=== PATIENT | female | born 1950 | race Caucasian/White ===

== ENCOUNTER 2017-02-23 10:54 | Emergency (ER) | payer MEDICARE ==
[~2017-02-23] VITALS: Ht 170.2 cm; Wt 128.8 kg
[~2017-02-23 10:54] MED LIST: ACET-819 PO; AGM875T PO; ALBU8.5H2 IH; ASP81CT PO; ATOR10TA PO; ATOR10TA66 PO; ATRV10T; BECL8.7A6 IH; CEPH500T PO; CETI10TA17 PO; CPR500T PO; CYCL10TA9; DICY20TA10 PO; DICY20TA57 PO; DOCU100T7 PO; FISH1CAP15 PO; FLUT1DIS26 IH; FRSM40T PO; FURO40TA4 PO; HYDR-34; HYDR-34 PO; HYDR-3583 PO; HYDR-3812 PO; HYDR-707; HYDR1TAB66 PO; KCL10CCR PO; KCL20TCR PO; LEVO100T PO; LEVO75TA58 PO; LEVO75TA6 PO; LISI5TAB PO; LVT.05T; METO25TA2 PO; MONT10TA24 PO; NAPR-243 PO; NAPR500T3 PO; NFPRILOC40 PO; NITRO SL; NTR.4SL SL; OMEP20CA6; OMEP40CA36 PO; OMG1KC; OMG1KC PO; ORPH100T PO; OXYC-12 PO; PHEN-639 PO; PHEN200T27 PO; PNT40TEC PO; POTA10CA43 PO; SCR1T1 PO; SODI0.5GEL TOP; SUCR1ORA PO; SULF1TAB38 PO; TRAM-21 PO; TRAM50TA2; TRAZ100T92 PO; TRM50T PO; TRZ100T PO; WARF-48 PO; WRF2.5T PO; WRF5T PO; ZLP10T; ZLP5T PO
--- NOTE | 2017-02-23 11:16 | ED GU-Female ---
General Chief Complaint: -Female Stated Complaint: BLOOD IN URINE/PAINFUL URINATION Nursing Triage Note: Patient reports urinary frequency and incontinence, patient reports she thinks she has a uti Nursing Sepsis Screen: No Definite Risk Source: patient History of Present Illness Time seen by provider: 11:06 Initial Comments PT STATES SHE HAS A UTI--SYMPTOMS BEGAN YESTERDAY C/O BURNING ON URINATION, CONSTANT URGENCY, FREQUENCY, SMALL AMOUNTS AND CONSTANT DRIBBLING URINE WAS PINK TINGED TODAY C/O ACHING IN MID LOWER BACK NO FEVER NO NAUSEA/VOMITING HAS HISTORY OF UTI'S AND HAS HAD SEPSIS WITH THE LAST ONE A YEAR AGO, AND WAS HOSPITALIZED PCP: DR. Gricelda AMOS Allergies and Home Medications Allergies Coded Allergies: No Known Drug Allergies (Verified , 02/04/16) Home Medications Aspirin 81 Mg Tablet, 81 MG PO DAILY, (Reported) Atorvastatin Calcium 10 Mg Tablet, 10 MG PO HS, (Reported) Cetirizine HCl 10 Mg Tablet, 10 MG PO DAILY, (Reported) Dicyclomine HCl 20 Mg Tablet, 20 MG PO BID, (Reported) Fish Oil/Dha/Epa 1 Each Capsule, 1,200 MG PO DAILY, (Reported) Furosemide 40 Mg Tablet, 40 MG PO EVERY OTHER DAY, (Reported) Levothyroxine Sodium 100 Mcg Tablet, 100 MCG PO DAILY@1100, #30 Ref 3 Prescribed by: ANISH BANEGAS on 02/21/16 0920 Metoprolol Tartrate 25 Mg Tablet, 12.5 MG PO BID, (Reported) TAKE 1/2 OF 25MG TAB Montelukast Sodium 10 Mg Tablet, 10 MG PO DAILY, (Reported) Naproxen 500 Mg Tablet, 500 MG PO BID, (Reported) Nitroglycerin 0.4 Mg Subl, 0.4 MG SL PRN, (Reported) Omeprazole 40 Mg Capsule.dr, 40 MG PO DAILY, (Reported) Phenazopyridine HCl 200 Mg Tablet, 1 TAB PO TID, #15 Prescribed by: LG DOHERTY on 02/23/17 1144 Potassium Chloride 10 Meq Capsule.er, 10 MEQ PO EVERY OTHER DAY, (Reported) Sucralfate 1 Gm/10 Ml Oral.susp, 1 GM PO QID for 30 Days Prescribed by: ANISH BANEGAS on 02/21/16 0920 Sulfamethoxazole/Trimethoprim 1 Each Tablet, 1 EACH PO BID, #20 Prescribed by: LG DOHERTY on 02/23/17 1144 Trazodone HCl 100 Mg Tablet, 100 MG PO HS, (Reported) Constitutional: no symptoms reported Respiratory: no symptoms reported Cardiovascular: no symptoms reported Gastrointestinal: abdominal pain (PRESSURE OVER BLADDER), No nausea, No vomiting Genitourinary: see HPI, burning, dysuria, frequency, hematuria, incontinence, pain, urgency : No Musculoskeletal: see HPI, back pain Skin: no symptoms reported Psychiatric/Neurological: No Symptoms Reported Endocrine: No Symptoms Reported Hematologic/Lymphatic: No Symptoms Reported Past Vwsaykg-Ivpwko-Pebdbj Hx Patient Social History Alcohol Use: Rarely Uses Recreational Drug Use: No Smoking Status: Former Smoker Former Smoker/When Quit: Oct 02, 2006 Recent Foreign Travel: No Contact w/Someone Who Travel: No Recent Infectious Disease Expo: No Recent Hopitalizations: No Immunizations Up To Date Tetanus Booster (TDap): Less than 5yrs Date of Pneumonia Vaccine: Sep 01, 2012 Date of Influenza Vaccine: Sep 01, 2012 Surgeries HX Surgeries: Yes (HIATAL HERNIA, LEFT TKR, SINGLE BYPASS; CATARACTS) Surgeries: Abdominal, Adenoidectomy, Appendectomy, CABG, Eye Surgery, Gallbladder, Hysterectomy, Joint Replacement, Tonsillectomy Respiratory Hx Respiratory Disorders: Yes (CPAP, pulmonary hypertension) Respiratory Disorders: Asthma, Sleep Apnea, COPD Cardiovascular Hx Cardiac Disorders: Yes (HX BY-PASS X1 2006) Cardiac Disorders: Coronary Artery Disease, High Cholesterol, Hypertension, Valvular Heart Disease Neurological Hx Neurological Disorders: No Reproductive System Hx Reproductive Disorders: No Sexually Transmitted Disease: No HIV/AIDS: No 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 Genitourinary Hx Genitourinary Disorders: Yes Genitourinary Disorders: Kidney Infection, Bladder Infection Gastrointestinal Hx Gastrointestinal Disorders: Yes Gastrointestinal Disorders: Gastroesophageal Reflux Musculoskeletal Hx Musculoskeletal Disorders: Yes Musculoskeletal Disorders: Arthritis Endocrine Hx Endocrine Disorders: Yes Endocrine Disorders: Hypothyroidsim HEENT HX ENT Disorders: Yes (GLASSES, CATARACTS) HEENT Disorders: Cataract Loss of Vision: Denies Cancer Hx Cancer: Yes (hysterectomy in 1989) Cancer: Cervical Psychosocial Hx Psychiatric Problems: No Integumentary HX Skin/Integumentary Disorder: No Blood Transfusions Hx Blood Disorders: Yes (hx of blood clots in 1989 pelvic area & left calf ) Family Medical History Significant Family History: No Pertinent Family Hx Family Medial History: Alzheimer's disease 19 MOTHER, , Onset:Unknown G8 BROTHER, , Onset:Unknown Diabetes mellitus G8 BROTHER, Onset:Unknown FH: CHF (congestive heart failure) 19 MOTHER, , Onset:Unknown FH: brain aneurysm 19 FATHER, , Onset:Unknown FH: brain aneurysm 19 FATHER, , Onset:Unknown Hypertension 19 FATHER, , Onset:Unknown 19 MOTHER, , Onset:Unknown G8 BROTHER, Onset:Unknown Myocardial infarction 19 FATHER, , Onset:Unknown 19 MOTHER, , Onset:Unknown Prostate cancer G8 BROTHER, Onset:Unknown TIAs 19 MOTHER, , Onset:Unknown Physical Exam Vital Signs Vital Sign - Last 12Hours 02/23/17 11:07 Temp 97.7 Pulse 69 Resp 18 B/P (MAP) 150/64 Pulse Ox 95 O2 Delivery Room Air Capillary Refill : Less Than 3 Seconds General Appearance: WD/WN, no apparent distress Neck: normal inspection Cardiovascular: regular rate, rhythm, no murmur Respiratory: normal breath sounds, no respiratory distress, no accessory muscle use Gastrointestinal: normal bowel sounds, soft, no organomegaly, no pulsatile mass , No distended, No guarding, No rebound, tenderness ("PRESSURE" IN SUPRAPUBIC AREA), No hernia, No mass Back: no CVA tenderness Extremities: normal inspection, normal capillary refill Neurologic/Psychiatric: 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 nml as tested, no motor/sensory deficits, alert, normal mood/affect, oriented x 3 Skin: normal color, warm/dry Progress/Results/Core Measures Results/Orders Lab Results Laboratory Tests Test 02/23/17 11:05 Range/Units Urine Color YELLOW Urine Clarity VERY CLOUDY H Urine pH 5 5-9 Urine Specific [place] 1.015 L 1.016-1.022 Urine Protein 2+ H NEGATIVE Urine Glucose (UA) NEGATIVE NEGATIVE Urine Ketones NEGATIVE NEGATIVE Urine Nitrite NEGATIVE NEGATIVE Urine Bilirubin NEGATIVE NEGATIVE Urine Urobilinogen NORMAL NORMAL MG/DL Urine Leukocyte Esterase 3+ H NEGATIVE Urine RBC (Auto) 5+ H NEGATIVE Urine RBC 25-50 H /HPF Urine WBC >100 H /HPF Urine Squamous Epithelial Cells 5-10 /HPF Urine Crystals NONE /LPF Urine Bacteria TRACE /HPF Urine Casts NONE /LPF Urine Mucus NEGATIVE /LPF Urine Culture Indicated YES My Orders Orders - LG DOHERTY DO Ua Culture If Indicated (02/23/17 11:10) Urine Culture (02/23/17 11:05) Ceftriaxone Injection (Rocephin Injectio (02/23/17 11:45) Lidocaine 1% Injection (Xylocaine 1% Inj (02/23/17 11:45) Medications Given in ED Current Medications Medications Dose Ordered Sig/Sukhi Route Start Time Stop Time Status Last Admin Dose Admin Ceftriaxone Sodium 1,000 mg ONCE ONCE IM 02/23/17 11:45 02/23/17 11:46 DC 02/23/17 11:55 1,000 MG Lidocaine HCl 2.1 ml ONCE ONCE INJ 02/23/17 11:45 02/23/17 11:46 DC 02/23/17 11:55 2.1 ML Vital Signs/I&O Vital Sign - Last 12Hours 02/23/17 02/23/17 11:07 12:07 Temp 97.7 97.7 Pulse 69 69 Resp 18 18 B/P (MAP) 150/64 Pulse Ox 95 95 O2 Delivery Room Air Blood Pressure Mean: 92 Departure Impression Impression: Primary Impression: Urinary tract infection Disposition: 01 HOME, SELF-CARE Condition: Stable Departure-Patient Inst. Referrals: AARON AMOS MD (PCP/Family) Primary Care Physician Patient Instructions: Urinary Tract Infection, Adult (DC) Add. Discharge Instructions: LOTS OF CLEAR LIQUIDS--NO COFFEE, POP OR TEA TYLENOL AND MOTRIN NEEDED FOR PAIN OR FEVER FOLLOW UP WITH YOUR DR IN 2-3 DAYS IF NO BETTER All discharge instructions reviewed with patient and/or family. Voiced understanding. Scripts Phenazopyridine HCl (Pyridium) 200 Mg Tablet 1 TAB PO TID for BLADDER DISCOMFORT, #15 TAB Prov: LG DOHERTY DO 02/23/17 Sulfamethoxazole/Trimethoprim (Bactrim Ds Tablet) 1 Each Tablet 1 EACH PO BID, #20 TAB Prov: MIRTA DOHERTYA K DO 02/23/17 MIRTA DOHERTYA K DO Feb 23, 2017 11:16
[2017-02-23 11:22] LABS: BILIRUBIN,URINE NEGATIVE (NEGATIVE); KETONES,URINE NEGATIVE (NEGATIVE); LEUKOCYTE ESTERASE ,URINE 3+ (NEGATIVE); NITRITE,URINE NEGATIVE (NEGATIVE); PH,URINE 5 (5-9); PROTEIN,URINE 2+ (NEGATIVE); UROBILINOGEN,URINE NORMAL (NORMAL)
[2017-02-23 11:31] LABS: WBC,URINE >100 /HPF
[2017-02-23] MEDS ORDERED: PHEN-640 PO (11:44)
[2017-02-23] MEDS ORDERED: SULF1TAB35 PO (11:44)
[2017-02-23] MEDS ORDERED: LIDOCAINE 1% INJ 20 ML (XYLOCAINE) VIAL INJ ONE (11:45)
[2017-02-23] MEDS ORDERED: cefTRIAXone 1 GM (ROCEPHIN) VIAL IM ONE (11:45)
[2017-02-23 12:07] VITALS: BP 150/64
== END 2017-02-23 12:07 | disposition home or self-care (01) ==
LOC: EDUNIT# 10:54 → ER 10:55
DX: N30.91 Cystitis, unspecified with hematuria (principal); I10 Essential (primary) hypertension; I25.10 Atherosclerotic heart disease of native coronary artery without angina pectoris; J44.9 Chronic obstructive pulmonary disease, unspecified; Z79.82 Long term (current) use of aspirin; Z79.899 Other long term (current) drug therapy; Z87.442 Personal history of urinary calculi; Z87.891 Personal history of nicotine dependence; Z95.1 Presence of aortocoronary bypass graft
CPT/HCPCS: 81000; 87088; 96372; 99285

== ENCOUNTER 2017-06-08 15:07 | Emergency (ER) | payer MEDICARE, MEDICAID ==
[~2017-06-08] VITALS: Ht 170.2 cm; Wt 126.1 kg
[~2017-06-08 15:07] MED LIST changes: -NAPR500T3 PO; +NAPR500T4 PO; +PHEN-640 PO; +SULF1TAB35 PO
[2017-06-08 15:41] LABS: BILIRUBIN,URINE NEGATIVE (NEGATIVE); KETONES,URINE NEGATIVE (NEGATIVE); LEUKOCYTE ESTERASE ,URINE 3+ (NEGATIVE); NITRITE,URINE NEGATIVE (NEGATIVE); PH,URINE 5 (5-9); PROTEIN,URINE 2+ (NEGATIVE); UROBILINOGEN,URINE NORMAL (NORMAL)
[2017-06-08 15:58] LABS: WBC,URINE TNTC /HPF
[2017-06-08] MEDS ORDERED: MECLIZINE 25 MG (ANTIVERT) TAB PO STA (16:01)
[2017-06-08] MEDS ORDERED: NS IV 1000 ML 1,000 ML IV ONE (16:01)
[2017-06-08] MEDS ORDERED: ONDANSETRON 4 MG/2 ML (SDV) Z0FRAN IVP ONE (16:15)
--- NOTE | 2017-06-08 16:19 | ED General ---
General Chief Complaint: -Female Stated Complaint: DIZZINESS/NAUSEA/ARMS TINGLING/PAINFUL URINATION Nursing Triage Note: c/o dysuria and dizziness. Reports hand itching. Onnset this morning. aware of HR of 48. Nursing Sepsis Screen: No Definite Risk Source of Information: Patient, Family (daughter) Exam Limitations: No Limitations History of Present Illness Time Seen by Provider: 15:50 Initial Comments 66-year-old female patient presents to the emergency department complaints of dysuria, frequency, and vertigo/dizziness. Patient states this is similar to when she had sepsis 1.5 years ago. Patient also c/o itching of the bilateral hands. States she has been out in the heat and does not drink much fluids. Reports yesterday only having approx 20 oz of fluids. Timing/Duration: Other (onset this a.m.) Modifying Factors: worse with Other (vertigo and dizziness worse with standing from a lying or sitting position) Allergies and Home Medications Allergies Coded Allergies: No Known Drug Allergies (Verified , 02/04/16) Home Medications Aspirin 81 Mg Tablet, 81 MG PO DAILY, (Reported) Atorvastatin Calcium 10 Mg Tablet, 10 MG PO HS, (Reported) Cephalexin 500 Mg Capsule, 500 MG PO TID, #30 Ref 0 Prescribed by: NATALIE SIERRA on 06/08/17 1714 Cetirizine HCl 10 Mg Tablet, 10 MG PO DAILY, (Reported) Dicyclomine HCl 20 Mg Tablet, 20 MG PO BID, (Reported) Fish Oil/Dha/Epa 1 Each Capsule, 1,200 MG PO DAILY, (Reported) Furosemide 40 Mg Tablet, 40 MG PO EVERY OTHER DAY, (Reported) Levothyroxine Sodium 100 Mcg Tablet, 100 MCG PO DAILY@1100, #30 Ref 3 Prescribed by: ANISH BANEGAS on 02/21/16 0920 Meclizine HCl 25 Mg Tablet, 25 MG PO Q6H PRN for VERTIGO, #10 Ref 0 Prescribed by: NATALIE SIERRA on 06/08/17 1800 Metoprolol Tartrate 25 Mg Tablet, 12.5 MG PO BID, (Reported) TAKE 1/2 OF 25MG TAB Montelukast Sodium 10 Mg Tablet, 10 MG PO DAILY, (Reported) Naproxen 500 Mg Tablet, 500 MG PO BID, (Reported) Nitroglycerin 0.4 Mg Subl, 0.4 MG SL PRN, (Reported) Omeprazole 40 Mg Capsule.dr, 40 MG PO DAILY, (Reported) Ondansetron 8 Mg Tab.rapdis, 8 MG PO Q6H PRN for NAUSEA/VOMITING-1ST LINE, #10 Ref 0 Prescribed by: NATALIE SIERRA on 06/08/17 1800 Phenazopyridine HCl 200 Mg Tablet, 1 TAB PO TID, #15 Prescribed by: LG DOHERTY on 02/23/17 1144 Potassium Chloride 10 Meq Capsule.er, 10 MEQ PO EVERY OTHER DAY, (Reported) Sucralfate 1 Gm/10 Ml Oral.susp, 1 GM PO QID for 30 Days Prescribed by: ANISH BANEGAS on 02/21/16 0920 Sulfamethoxazole/Trimethoprim 1 Each Tablet, 1 EACH PO BID, #20 Prescribed by: LG DOHERTY on 02/23/17 1144 Trazodone HCl 100 Mg Tablet, 100 MG PO HS, (Reported) Constitutional: see HPI, No chills, No diaphoresis, dizziness, No fever, No malaise, No weakness EENTM: no symptoms reported Respiratory: No cough, No dyspnea on exertion, No orthopnea, No short of breath Cardiovascular: No chest pain, No palpitations, No syncope Gastrointestinal: No abdominal pain, No constipation, No diarrhea, No jaundice , nausea, No vomiting Genitourinary: see HPI, No decreased output, No discharge, dysuria, frequency, No hematuria, No incontinence Musculoskeletal: no symptoms reported Skin: see HPI, No change in color, No lesions, No lumps, pruritus (pruritus of the bilateral hands), No rash Psychiatric/Neurological: Denies Headache, Denies Numbness, Denies Paresthesia , Denies Seizure, Denies Tingling, Denies Weakness (denies one-sided weakness) All Other Systems Reviewed Negative Unless Noted: Yes (Negative excepted noted.) Past Ltoakdo-Znikzz-Wyeofg Hx Patient Social History Alcohol Use: Denies Use Recreational Drug Use: No (2006 METH, POT) Smoking Status: Never a Smoker Former Smoker/When Quit: Oct 02, 2006 Recent Foreign Travel: No Contact w/Someone Who Travel: No Recent Infectious Disease Expo: No Recent Hopitalizations: No Immunizations Up To Date Tetanus Booster (TDap): Less than 5yrs Date of Pneumonia Vaccine: Sep 01, 2012 Date of Influenza Vaccine: Sep 01, 2012 Surgeries HX Surgeries: Yes (HIATAL HERNIA, LEFT TKR, SINGLE BYPASS; CATARACTS) Surgeries: Abdominal, Adenoidectomy, Appendectomy, CABG, Eye Surgery, Gallbladder, Hysterectomy, Joint Replacement, Tonsillectomy Respiratory Hx Respiratory Disorders: Yes (CPAP, pulmonary hypertension) Respiratory Disorders: Asthma, Sleep Apnea, COPD Cardiovascular Hx Cardiac Disorders: Yes (HX BY-PASS X1 2006) Cardiac Disorders: Coronary Artery Disease, High Cholesterol, Hypertension, Valvular Heart Disease Neurological Hx Neurological Disorders: No Reproductive System Hx Reproductive Disorders: No Sexually Transmitted Disease: No HIV/AIDS: No 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 Genitourinary Hx Genitourinary Disorders: Yes Genitourinary Disorders: Kidney Infection, Bladder Infection Gastrointestinal Hx Gastrointestinal Disorders: Yes Gastrointestinal Disorders: Gastroesophageal Reflux Musculoskeletal Hx Musculoskeletal Disorders: Yes Musculoskeletal Disorders: Arthritis Endocrine Hx Endocrine Disorders: Yes Endocrine Disorders: Hypothyroidsim HEENT HX ENT Disorders: Yes (GLASSES, CATARACTS) HEENT Disorders: Cataract Loss of Vision: Denies Cancer Hx Cancer: Yes (hysterectomy in 1989) Cancer: Cervical Psychosocial Hx Psychiatric Problems: No Integumentary HX Skin/Integumentary Disorder: No Blood Transfusions Hx Blood Disorders: Yes (hx of blood clots in 1989 pelvic area & left calf ) Reviewed Nursing Assessment Reviewed/Agree w Nursing PMH: Yes Family Medical History Significant Family History: No Pertinent Family Hx Family Medial History: Alzheimer's disease 19 MOTHER, , Onset:Unknown G8 BROTHER, , Onset:Unknown Diabetes mellitus G8 BROTHER, Onset:Unknown FH: CHF (congestive heart failure) 19 MOTHER, , Onset:Unknown FH: brain aneurysm 19 FATHER, , Onset:Unknown FH: brain aneurysm 19 FATHER, , Onset:Unknown Hypertension 19 FATHER, , Onset:Unknown 19 MOTHER, , Onset:Unknown G8 BROTHER, Onset:Unknown Myocardial infarction 19 FATHER, , Onset:Unknown 19 MOTHER, , Onset:Unknown Prostate cancer G8 BROTHER, Onset:Unknown TIAs 19 MOTHER, , Onset:Unknown Physical Exam Vital Signs Vital Sign - Last 12Hours 06/08/17 06/08/17 15:49 18:02 Temp 97.5 Pulse 70 Resp 16 Pulse Ox 98 O2 Delivery Room Air Capillary Refill : Less Than 3 Seconds General Appearance: No Apparent Distress, WD/WN HEENT: PERRL/EOMI, TMs Normal, Normal ENT Inspection, Pharynx Normal, Other ( oral mucosa dry.) Neck: Normal Inspection, Supple Respiratory: Lungs Clear, Normal Breath Sounds, No Respiratory Distress Cardiovascular: No Edema, No Murmur, Normal Peripheral Pulses, Bradycardia Gastrointestinal: Normal Bowel Sounds, No Organomegaly, Non Tender, Soft Back: Normal Inspection, No CVA Tenderness Extremity: Normal Capillary Refill, Normal Inspection, Non Tender, No Pedal Edema Neurologic/Psychiatric: Alert, Oriented x3, No Motor/Sensory Deficits, Normal Mood/Affect, hub associate II-XII Norm as Tested Skin: Normal Color, Warm/Dry, No Rash, Other (linear scabs of the bilateral feet (patient states these are scratches from her puppy).) Progress/Results/Core Measures Results/Orders Lab Results Laboratory Tests Test 06/08/17 15:35 06/08/17 16:30 Range/Units Urine Color YELLOW Urine Clarity VERY CLOUDY H Urine pH 5 5-9 Urine Specific [place] 1.025 H 1.016-1.022 Urine Protein 2+ H NEGATIVE Urine Glucose (UA) NEGATIVE NEGATIVE Urine Ketones NEGATIVE NEGATIVE Urine Nitrite NEGATIVE NEGATIVE Urine Bilirubin NEGATIVE NEGATIVE Urine Urobilinogen NORMAL NORMAL MG/DL Urine Leukocyte Esterase 3+ H NEGATIVE Urine RBC (Auto) 5+ H NEGATIVE Urine RBC >100 H /HPF Urine WBC TNTC H /HPF Urine Crystals NONE /LPF Urine Bacteria TRACE /HPF Urine Casts NONE /LPF Urine Mucus NEGATIVE /LPF Urine Culture Indicated YES White Blood Count 4.8 4.3-11.0 10^3/uL Red Blood Count 4.13 L 4.35-5.85 10^6/uL Hemoglobin 12.5 11.5-16.0 G/DL Hematocrit 38 35-52 % Mean Corpuscular Volume 93 80-99 FL Mean Corpuscular Hemoglobin 30 25-34 PG Mean Corpuscular Hemoglobin Concent 33 32-36 G/DL Red Cell Distribution Width 14.3 10.0-14.5 % Platelet Count 179 130-400 10^3/uL Mean Platelet Volume 10.6 H 7.4-10.4 FL Neutrophils (%) (Auto) 66 42-75 % Lymphocytes (%) (Auto) 25 12-44 % Monocytes (%) (Auto) 8 0-12 % Eosinophils (%) (Auto) 1 0-10 % Basophils (%) (Auto) 0 0-10 % Neutrophils # (Auto) 3.1 1.8-7.8 X 10^3 Lymphocytes # (Auto) 1.2 1.0-4.0 X 10^3 Monocytes # (Auto) 0.4 0.0-1.0 X 10^3 Eosinophils # (Auto) 0.1 0.0-0.3 10^3/uL Basophils # (Auto) 0.0 0.0-0.1 10^3/uL Sodium Level 139 135-145 MMOL/L Potassium Level 4.4 3.6-5.0 MMOL/L Chloride Level 105 98-107 MMOL/L Carbon Dioxide Level 26 21-32 MMOL/L Anion Gap 8 5-14 MMOL/L Blood Urea Nitrogen 19 H 7-18 MG/DL Creatinine 1.14 0.60-1.30 MG/DL Estimat Glomerular Filtration Rate 48 BUN/Creatinine Ratio 17 Glucose Level 107 H 70-105 MG/DL Calcium Level 8.6 8.5-10.1 MG/DL Total Bilirubin 0.7 0.1-1.0 MG/DL Aspartate Amino Transf (AST/SGOT) 17 5-34 U/L Alanine Aminotransferase (ALT/SGPT) 15 0-55 U/L Alkaline Phosphatase 91 40-136 U/L Total Protein 7.1 6.4-8.2 GM/DL Albumin 3.8 3.2-4.5 GM/DL Lipase 21 8-78 U/L My Orders Orders - NATALIE SIERRA Saline Lock/Iv-Start (06/08/17 16:01) Ekg Tracing (06/08/17 16:01) Cbc With Automated Diff (06/08/17 16:01) Comprehensive Metabolic Panel (06/08/17 16:01) Lipase (06/08/17 16:01) Ns Iv 1000 Ml (Sodium Chloride 0.9%) (06/08/17 16:01) Meclizine Tablet (Antivert Tablet) (06/08/17 16:01) Ondansetron Injection (Zofran Injectio (06/08/17 16:15) Chest 1 View, Ap/Pa Only (06/08/17 16:01) Ceftriaxone Injection (Rocephin Injectio (06/08/17 16:45) Medications Given in ED Current Medications Medications Dose Ordered Sig/Sukhi Route Start Time Stop Time Status Last Admin Dose Admin Ceftriaxone Sodium 1000 mg/ Sodium Chloride 50 ml @ 100 mls/hr ONCE ONCE IV 06/08/17 16:45 06/08/17 17:14 DC 06/08/17 16:45 100 MLS/HR Ondansetron HCl 4 mg ONCE ONCE IVP 06/08/17 16:15 06/08/17 16:16 DC 06/08/17 16:41 4 MG Sodium Chloride 1,000 ml @ 0 mls/hr Q0M ONCE IV 06/08/17 16:01 06/08/17 16:03 DC 06/08/17 16:41 1,000 MLS/HR Vital Signs/I&O Vital Sign - Last 12Hours 06/08/17 06/08/17 15:49 18:02 Temp 97.5 Pulse 70 50 Resp 16 B/P (MAP) Pulse Ox 98 99 O2 Delivery Room Air ECG Initial ECG Impression Date: Jun 08, 2017 Initial ECG Impression Time: 16:41 Initial ECG Rate: 47 Initial ECG Rhythm: S.Ten Initial ECG Comparisson: No Previous ECG Available Comment Sinus bradycardia. No STEMI or arrhythmia noted. ECG reviewed and discussed with Dr. Deng. Diagnostic Imaging Diagonstic Imaging: Xray Plain Films/CT/US/NM/MRI: chest Comments FINDINGS: The heart is prominent. The pulmonary vasculature is minimally congested. There are increased interstitial markings throughout both lungs, predominantly in the lower lungs, likely due to atelectasis. No effusions. No infiltrates. No pneumothorax. Sternotomy wires and mediastinal clips appear stable from previous. IMPRESSION: Pulmonary vascular congestion with mild bibasilar atelectasis. Remaining chest demonstrates chronic change. Dictated on workstation # [id number] Reviewed: Reviewed by Me (radiology report reviewed by me) Departure Communication Progress Notes All laboratory and diagnostic findings discussed with the patient. Patient reports symptoms are completely resolved. Patient given 1 g of rocephin IV x1 dose in the ED. Plan for discharge to home. Impression Impression: Primary Impression: Urinary tract infection Qualified Codes: N30.01 - Acute cystitis with hematuria Additional Impression: Volume depletion Disposition: HOME, SELF-CARE Condition: Improved Departure-Patient Inst. Decision time for Depature: 17:11 Referrals: AARON AMOS MD (PCP/Family) Primary Care Physician Patient Instructions: Dehydration, Adult (DC), Urinary Tract Infection, Adult ( DC) Add. Discharge Instructions: All discharge instructions reviewed with patient and/or family. Voiced understanding. Medications as directed. Continue as directed. Drink plenty of fluids. Follow-up with your family practitioner for recheck early this week. Call for appointment time tomorrow morning. Return to the emergency department for worsened symptoms or any other concerns. Scripts Ondansetron (Ondansetron Odt) 8 Mg Tab.rapdis 8 MG PO Q6H Y for NAUSEA/VOMITING-1ST LINE, #10 TAB 0 Refills Prov: NATALIE SIERRA 06/08/17 Meclizine HCl (Meclizine HCl) 25 Mg Tablet 25 MG PO Q6H Y for VERTIGO, #10 TAB 0 Refills Prov: NATALIE SIERRA 06/08/17 Cephalexin (Cephalexin) 500 Mg Capsule 500 MG PO TID, #30 CAP 0 Refills Prov: NATALIE SIERRA 06/08/17 NATALIE SIERRA Jun 08, 2017 16:19
[2017-06-08 16:38] LABS: BASOPHILS % (AUTO) 0 % (0-10); EOSINOPHILS # (AUTO) 0.1 10^3/uL (0.0-0.3); EOSINOPHILS % (AUTO) 1 % (0-10); LYMPHOCYTES # (AUTO) 1.2 X 10^3 (1.0-4.0); LYMPHOCYTES % (AUTO) 25 % (12-44); MEAN CORPUSCULAR HEMOGLOBIN 30 PG (25-34); MEAN CORPUSCULAR HGB CONC 33 G/DL (32-36); MEAN CORPUSCULAR VOLUME 93 FL (80-99); MEAN PLATELET VOLUME 10.6 FL (7.4-10.4); MONOCYTES # (AUTO) 0.4 X 10^3 (0.0-1.0); MONOCYTES % (AUTO) 8 % (0-12); NEUTROPHILS # (AUTO) 3.1 X 10^3 (1.8-7.8); NEUTROPHILS % (AUTO) 66 % (42-75); PLATELET COUNT 179 10^3/uL (130-400); RED BLOOD COUNT 4.13 10^6/uL (4.35-5.85); RED CELL DISTRIBUTION WIDTH 14.3 % (10.0-14.5); WHITE BLOOD COUNT 4.8 10^3/uL (4.3-11.0)
[2017-06-08] MEDS ORDERED: cefTRIAXone INJECTION 1,000 MG in NS (IVPB) 50 ML IV ONE (16:45)
--- NOTE | 2017-06-08 16:47 | Diagnostic Imaging Report ---
INDICATION: Dysuria, dizziness. EXAMINATION: Frontal chest, 06/08/2017. COMPARISON: 02/19/2016. FINDINGS: The heart is prominent. The pulmonary vasculature is minimally congested. There are increased interstitial markings throughout both lungs, predominantly in the lower lungs, likely due to atelectasis. No effusions. No infiltrates. No pneumothorax. Sternotomy wires and mediastinal clips appear stable from previous. IMPRESSION: Pulmonary vascular congestion with mild bibasilar atelectasis. Remaining chest demonstrates chronic change. Dictated by: Dictated on workstation # [id number]
[2017-06-08 16:57] LABS: ALBUMIN 3.8 GM/DL (3.2-4.5); BILIRUBIN,TOTAL 0.7 MG/DL (0.1-1.0); CALCIUM 8.6 MG/DL (8.5-10.1); CREATININE SERUM 1.14 MG/DL (0.60-1.30); POTASSIUM 4.4 MMOL/L (3.6-5.0); TOTAL PROTEIN 7.1 GM/DL (6.4-8.2)
[2017-06-08] MEDS ORDERED: CEPH500C PO (17:14)
[2017-06-08] MEDS ORDERED: MECL-106 PO (18:00)
[2017-06-08] MEDS ORDERED: ONDA8TAB13 PO (18:00)
[2017-06-08 18:02] VITALS: BP 132/64
[2017-09-08] MEDS ORDERED: CEFU500T63 PO (20:07)
== END 2017-06-08 18:02 | disposition home or self-care (01) ==
LOC: EDUNIT# 15:07 → ER 15:09
DX: N39.0 Urinary tract infection, site not specified (principal); E86.9 Volume depletion, unspecified; E03.9 Hypothyroidism, unspecified; M19.90 Unspecified osteoarthritis, unspecified site; K21.9 Gastro-esophageal reflux disease without esophagitis; I25.10 Atherosclerotic heart disease of native coronary artery without angina pectoris; E78.00 Pure hypercholesterolemia, unspecified; I10 Essential (primary) hypertension; J44.9 Chronic obstructive pulmonary disease, unspecified; G47.30 Sleep apnea, unspecified; F15.90 Other stimulant use, unspecified, uncomplicated; F12.90 Cannabis use, unspecified, uncomplicated; Z90.49 Acquired absence of other specified parts of digestive tract; Z95.1 Presence of aortocoronary bypass graft; Z90.89 Acquired absence of other organs; Z96.652 Presence of left artificial knee joint; Z87.891 Personal history of nicotine dependence; Z79.82 Long term (current) use of aspirin; Z90.710 Acquired absence of both cervix and uterus; Z85.41 Personal history of malignant neoplasm of cervix uteri
CPT/HCPCS: 36415; 71010; 80053; 81000; 83690; 85025; 87077; 87088; 87186; 93005; 96361; 96365; 96375

== ENCOUNTER → 2017-07-09 | Outpatient (CLI) | payer MEDICARE, MEDICAID ==
[~2017-07-09] MED LIST changes: +CEFU500T63 PO; +CEPH500C PO; +MECL-106 PO; +ONDA8TAB13 PO
== END ==
LOC: CARD 08:49
PROVIDERS: ATTEND Nurse Practitioner Family
DX: I49.8 Other specified cardiac arrhythmias (principal); R55 Syncope and collapse; I25.10 Atherosclerotic heart disease of native coronary artery without angina pectoris; G47.33 Obstructive sleep apnea (adult) (pediatric)
CPT/HCPCS: 93225; 93226

== ENCOUNTER → 2017-09-03 | Outpatient (CLI) | payer MEDICAID, MEDICARE ==
[~2017-09-03] MED LIST changes: -CEFU500T63 PO; +NAPR500T3 PO; -NAPR500T4 PO
--- NOTE | 2017-09-03 19:43 | Diagnostic Imaging Report ---
Bilateral screening mammogram 2D views with tomosynthesis The current study was also evaluated with a Computer Aided Detection (CAD) system. Indication: Screening. No current complaints stated on the questionnaire. COMPARISON: 04/11/15 FINDINGS: Breasts are composed of scattered fibroglandular densities. There are scattered benign-appearing calcifications seen. No mass, architectural distortion or suspicious cluster of calcifications. Allowing for technique and positional differences, no suspicious change is seen. IMPRESSION: No significant change. ACR BI-RADS Category 2: Benign findings. Result letter will be mailed to the patient. Note: At least 10% of breast cancer is not imaged by mammography. Dictated by: Dictated on workstation # [id number]
== END ==
LOC: RAD 08:54
PROVIDERS: ATTEND Family Medicine
DX: Z12.31 Encounter for screening mammogram for malignant neoplasm of breast (principal)
CPT/HCPCS: 77067

== ENCOUNTER 2017-11-23 13:44 | Emergency (ER) | payer MEDICARE ==
[~2017-11-23] VITALS: Ht 170.2 cm; Wt 127.0 kg
[~2017-11-23 13:44] MED LIST changes: +ACHD5005 PO; +CEFU500T63 PO; -HYDR-3812 PO; -NAPR500T3 PO; +NAPR500T4 PO
[2017-11-23] MEDS ORDERED: BUDE10.22 IH (15:10)
[2017-11-23] MEDS ORDERED: FLUT1AER IH (15:10)
[2017-11-23] MEDS ORDERED: NS IV 1000 ML 1,000 ML IV ONE (16:41)
[2017-11-23] MEDS ORDERED: RT-ALBUTEROL/IPRATROPIUM 3 ML (DUONEB) VIAL INH ONE (16:45)
--- NOTE | 2017-11-23 16:49 | ED General ---
General Chief Complaint: Cough/Cold/Flu Symptoms Stated Complaint: SORE THROAT/COUGH Nursing Triage Note: PT HERE WITH C/O FEVER, COUGH, AND SORE THROAT FOR 5 DAYS. Nursing Sepsis Screen: No Definite Risk (GANESH HUMPHREYS MEDICAL STUDENT) History of Present Illness Time Seen by Provider: 16:48 Initial Comments Pt is a 67 yo female with a PMH of Asthma, CAD who presents to the ED via PV with family c/o cough, SOB, and fever for ~ 4 days. Pt states the cough has been getting progressively worse, she hasn't felt like eating or drinking much, and "hurts all over." Pt does use inhalers BID, but hasn't for the past couple of days because it makes her cough more. Pt denies any CP, LE swelling, vision changes, or any other associated sx. (GANESH HUMPHREYS MEDICAL STUDENT) Allergies and Home Medications Allergies Coded Allergies: No Known Drug Allergies (Verified , 02/04/16) Home Medications Albuterol Sulfate 2.5 Mg/0.5 Ml Vial.neb, 2.5 MG IH Q4H PRN for SHORTNESS OF BREATH, #30 Prescribed by: BILLIE SALEH on 11/23/171822 Albuterol Sulfate 1 Puff Puff, 1-4 PUFF IH Q4H PRN for SHORTNESS OF BREATH, #1 1 PUFF = 90 MCG Prescribed by: BILLIE SALEH on 11/23/17 182 Aspirin 81 Mg Tablet, 81 MG PO DAILY, (Reported) Atorvastatin Calcium 10 Mg Tablet, 10 MG PO HS, (Reported) Azithromycin 250 Mg Tablet, 250 MG PO DAILY, #4 Prescribed by: BILLIE SALEH on 11/23/17 182 Budesonide/Formoterol Fumarate 10.2 Gm Hfa.aer.ad, 2 PUFF IH BID, (Reported) Cefuroxime Axetil 500 Mg Tablet, 500 MG PO BID, #10 Prescribed by: ROSIBEL BATES on 09/08/172006 Cephalexin 500 Mg Capsule, 500 MG PO TID, #30 Ref 0 Prescribed by: NATALIE SIERRA on 06/08/17 1714 Cetirizine HCl 10 Mg Tablet, 10 MG PO DAILY, (Reported) Dicyclomine HCl 20 Mg Tablet, 20 MG PO BID, (Reported) Fish Oil/Dha/Epa 1 Each Capsule, 1,200 MG PO DAILY, (Reported) Fluticasone/Vilanterol 1 Each Blst.w.dev, 1 EACH IH, (Reported) Furosemide 40 Mg Tablet, 40 MG PO EVERY OTHER DAY, (Reported) Levothyroxine Sodium 100 Mcg Tablet, 100 MCG PO DAILY@1100, #30 Ref 3 Prescribed by: ANISH BANEGAS on 02/21/16 0920 Meclizine HCl 25 Mg Tablet, 25 MG PO Q6H PRN for VERTIGO, #10 Ref 0 Prescribed by: NATALIE SIERRA on 06/08/17 1800 Metoprolol Tartrate 25 Mg Tablet, 12.5 MG PO BID, (Reported) TAKE 1/2 OF 25MG TAB Montelukast Sodium 10 Mg Tablet, 10 MG PO DAILY, (Reported) Naproxen 500 Mg Tablet, 500 MG PO BID, (Reported) Nitroglycerin 0.4 Mg Subl, 0.4 MG SL PRN, (Reported) Omeprazole 40 Mg Capsule.dr, 40 MG PO DAILY, (Reported) Ondansetron 8 Mg Tab.rapdis, 8 MG PO Q6H PRN for NAUSEA/VOMITING-1ST LINE, #10 Ref 0 Prescribed by: NATALIE SIERRA on 06/08/17 1800 Phenazopyridine HCl 200 Mg Tablet, 1 TAB PO TID, #15 Prescribed by: LG DOHERTY on 02/23/17 1144 Potassium Chloride 10 Meq Capsule.er, 10 MEQ PO EVERY OTHER DAY, (Reported) Sucralfate 1 Gm/10 Ml Oral.susp, 1 GM PO QID for 30 Days Prescribed by: ANISH BANEGAS on 02/21/16 0920 Sulfamethoxazole/Trimethoprim 1 Each Tablet, 1 EACH PO BID, #20 Prescribed by: LG DOHERTY on 02/23/17 1144 Trazodone HCl 100 Mg Tablet, 100 MG PO HS, (Reported) Constitutional: chills, fever, malaise, weakness EENTM: throat pain, other (Dry mouth), No blurred vision, No double vision, No vision loss Respiratory: cough, short of breath Cardiovascular: No chest pain, No edema, No palpitations Gastrointestinal: No abdominal pain, No constipation, No diarrhea, nausea, No vomiting Genitourinary: no symptoms reported, No decreased output, No discharge, No dysuria, No frequency Musculoskeletal: no symptoms reported, No muscle pain, No neck pain Skin: no symptoms reported, No change in color, No dryness (GANESH HUMPHREYS MEDICAL STUDENT) All Other Systems Reviewed Negative Unless Noted: Yes (Negative excepted noted.) (GANESH HUMPHREYS MEDICAL STUDENT) Past Funmjiw-Iqmvkw-Dccbbs Hx Patient Social History Recent Foreign Travel: No Contact w/Someone Who Travel: No Recent Infectious Disease Expo: No Recent Hopitalizations: No (GANESH HUMPHREYS MEDICAL STUDENT) Immunizations Up To Date Tetanus Booster (TDap): Less than 5yrs Date of Pneumonia Vaccine: Sep 01, 2012 Date of Influenza Vaccine: Sep 01, 2012 (GANESH HUMPHREYS MEDICAL STUDENT) Surgeries History of Surgeries: Yes (HIATAL HERNIA, LEFT TKR, SINGLE BYPASS; CATARACTS) Surgeries: Abdominal, Adenoidectomy, Appendectomy, CABG, Eye Surgery, Gallbladder, Hysterectomy, Joint Replacement, Tonsillectomy (GANESH HUMPHREYS MEDICAL STUDENT) Respiratory History of Respiratory Disorde: Yes (CPAP, pulmonary hypertension) Respiratory Disorders: Asthma, Sleep Apnea, COPD Currently Using CPAP: Yes Currently Using BIPAP: No (GANESH HUMPHREYS MEDICAL STUDENT) Cardiovascular History of Cardiac Disorders: Yes (HX BY-PASS X1 2006) Cardiac Disorders: Coronary Artery Disease, High Cholesterol, Hypertension, Valvular Heart Disease (GANESH HUMPHREYS MEDICAL STUDENT) Neurological History of Neurological Disord: No (GANESH HUMPHREYS MEDICAL STUDENT) Reproductive System Hx Reproductive Disorders: No Sexually Transmitted Disease: No HIV/AIDS: No Female Reproductive Disorders: Denies DANCE HISTORIAN History: Hysterectomy (GANESH HUMPHREYS MEDICAL STUDENT) Genitourinary Genitourinary Disorders: Kidney Infection, Bladder Infection (GANESH HUMPHREYS MEDICAL STUDENT) Gastrointestinal History of Gastrointestinal Di: Yes Gastrointestinal Disorders: Gastroesophageal Reflux (GANESH HUMPHREYS MEDICAL STUDENT) Musculoskeletal History of Musculoskeletal Dis: Yes Musculoskeletal Disorders: Arthritis (GANESH HUMPHREYS MEDICAL STUDENT) Endocrine History of Endocrine Disorders: Yes Endocrine Disorders: Hypothyroidsim (GANESH HUMPHREYS MEDICAL STUDENT) HEENT HEENT Disorders: Cataract Loss of Vision: Denies (GANESH HUMPHREYS MEDICAL STUDENT) Cancer History of Cancer: Yes (hysterectomy in 1989) Cancer: Cervical (GANESH HUMPHREYS MEDICAL STUDENT) Psychosocial History of Psychiatric Problem: No (GANESH HUMPHREYS MEDICAL STUDENT) Integumentary History of Skin or Integumenta: No (GANESH HUMPHREYS MEDICAL STUDENT) Blood Transfusions History of Blood Disorders: Yes (hx of blood clots in 1989 pelvic area & left calf ) (GANESH HUMPHREYS MEDICAL STUDENT) Family Medical History Significant Family History: No Pertinent Family Hx Family Medial History: Alzheimer's disease 19 MOTHER, , Onset:Unknown G8 BROTHER, , Onset:Unknown Diabetes mellitus G8 BROTHER, Onset:Unknown FH: CHF (congestive heart failure) 19 MOTHER, , Onset:Unknown FH: brain aneurysm 19 FATHER, , Onset:Unknown FH: brain aneurysm 19 FATHER, , Onset:Unknown Hypertension 19 FATHER, , Onset:Unknown 19 MOTHER, , Onset:Unknown G8 BROTHER, Onset:Unknown Myocardial infarction 19 FATHER, , Onset:Unknown 19 MOTHER, , Onset:Unknown Prostate cancer G8 BROTHER, Onset:Unknown TIAs 19 MOTHER, , Onset:Unknown (GANESH HUMPHREYS MEDICAL STUDENT) Family Medial History: Alzheimer's disease 19 MOTHER, , Onset:Unknown G8 BROTHER, , Onset:Unknown Diabetes mellitus G8 BROTHER, Onset:Unknown FH: CHF (congestive heart failure) 19 MOTHER, , Onset:Unknown FH: brain aneurysm 19 FATHER, , Onset:Unknown FH: brain aneurysm 19 FATHER, , Onset:Unknown Hypertension 19 FATHER, , Onset:Unknown 19 MOTHER, , Onset:Unknown G8 BROTHER, Onset:Unknown Myocardial infarction 19 FATHER, , Onset:Unknown 19 MOTHER, , Onset:Unknown Prostate cancer G8 BROTHER, Onset:Unknown TIAs 19 MOTHER, , Onset:Unknown (BILLIE BECERRA MD) Physical Exam Vital Signs Vital Sign - Last 12Hours 11/23/17 15:05 Temp 98.0 Pulse 84 Resp 18 B/P (MAP) 147/70 (95) Pulse Ox 96 O2 Delivery Room Air (BILLIE BECERRA MD) Vital Signs Capillary Refill : Less Than 3 Seconds (GANESH HUMPHREYS MEDICAL STUDENT) General Appearance: No Apparent Distress, WD/WN, Obese HEENT: PERRL/EOMI, TMs Normal, Normal ENT Inspection, No Moist Mucous Membranes , Pharyngeal Erythema (slight), No Tonsillar Exudate, Other (Dry mucous membranes) Neck: Full Range of Motion, Normal Inspection, Non Tender, Supple Respiratory: Rhonci, Wheezing Cardiovascular: Regular Rate, Rhythm, Systolic Murmur Gastrointestinal: Normal Bowel Sounds, Soft, No Guarding, No Rebound Extremity: Normal Capillary Refill, No Calf Tenderness, No Pedal Edema Neurologic/Psychiatric: Alert, Oriented x3 Skin: Normal Color, Warm/Dry (GANESH HUMPHREYS MEDICAL STUDENT) Progress/Results/Core Measures Suspected Sepsis Recent Fever Within 48 Hours: Yes Infection Criteria Present: None New/Unexplained Altered Menta: No Sepsis Screen: No Definite Risk Sepsis Diagnosis: SIRS Temperature:98.0 Pulse: 84 Respiratory Rate: 18 Blood Pressure 147 /70 Mean: 95 (GANESH HUMPHREYS MEDICAL STUDENT) Results/Orders Lab Results Laboratory Tests Test 11/23/17 16:55 Range/Units White Blood Count 4.9 4.3-11.0 10^3/uL Red Blood Count 4.17 L 4.35-5.85 10^6/uL Hemoglobin 12.8 11.5-16.0 G/DL Hematocrit 38 35-52 % Mean Corpuscular Volume 92 80-99 FL Mean Corpuscular Hemoglobin 31 25-34 PG Mean Corpuscular Hemoglobin Concent 34 32-36 G/DL Red Cell Distribution Width 15.0 H 10.0-14.5 % Platelet Count 152 130-400 10^3/uL Mean Platelet Volume 10.5 H 7.4-10.4 FL Neutrophils (%) (Auto) 63 42-75 % Lymphocytes (%) (Auto) 28 12-44 % Monocytes (%) (Auto) 9 0-12 % Eosinophils (%) (Auto) 0 0-10 % Basophils (%) (Auto) 0 0-10 % Neutrophils # (Auto) 3.1 1.8-7.8 X 10^3 Lymphocytes # (Auto) 1.3 1.0-4.0 X 10^3 Monocytes # (Auto) 0.5 0.0-1.0 X 10^3 Eosinophils # (Auto) 0.0 0.0-0.3 10^3/uL Basophils # (Auto) 0.0 0.0-0.1 10^3/uL Sodium Level 139 135-145 MMOL/L Potassium Level 4.4 3.6-5.0 MMOL/L Chloride Level 103 98-107 MMOL/L Carbon Dioxide Level 24 21-32 MMOL/L Anion Gap 12 5-14 MMOL/L Blood Urea Nitrogen 21 H 7-18 MG/DL Creatinine 1.25 0.60-1.30 MG/DL Estimat Glomerular Filtration Rate 43 BUN/Creatinine Ratio 17 Glucose Level 100 70-105 MG/DL Calcium Level 8.8 8.5-10.1 MG/DL Total Bilirubin 0.7 0.1-1.0 MG/DL Aspartate Amino Transf (AST/SGOT) 20 5-34 U/L Alanine Aminotransferase (ALT/SGPT) 12 0-55 U/L Alkaline Phosphatase 74 40-136 U/L Total Protein 7.2 6.4-8.2 GM/DL Albumin 3.7 3.2-4.5 GM/DL (BILLIE BECERRA MD) Micro Results Microbiology 11/23/17 Influenza Types A,B Antigen (CHUY) - Final, Complete (BILLIE BECERRA MD) My Orders Orders - BILLIE BECERRA MD Influenza A And B Antigens (11/23/17 15:19) Cbc With Automated Diff (11/23/17 16:41) Comprehensive Metabolic Panel (11/23/17 16:41) Chest Pa/Lat (2 View) (11/23/17 16:41) Saline Lock/Iv-Start (11/23/17 16:41) Ns Iv 1000 Ml (Sodium Chloride 0.9%) (11/23/17 16:41) Albuterol/Ipra Inhalation Soln (Duoneb I (11/23/17 16:45) Svn Sm Volume Nebulizer Rt-Rfs (11/23/17 16:41) Rx-Albuterol Nebs (Rx-Proventil Nebs) (11/23/17 18:14) Azithromycin Tablet (Zithromax Tablet) (11/23/17 18:15) Rx-Ondansetron Po (Rx-Zofran Po) (11/23/17 18:17) (BILLIE BECERRA MD) Medications Given in ED (BILLIE BECERRA MD) Vital Signs/I&O (BILLIE BECERRA MD) Vital Signs/I&O Capillary Refill : Less Than 3 Seconds (GANESH HUMPHREYS MEDICAL STUDENT) Blood Pressure Mean: 95 Progress Note : Progress Note Patient was interviewed, seen, and examined along with Ganesh Humphreys, MS4. I agree with his documentation, assessment, and plan with the following changes and additions. Patient reports being ill for several days with cough and wheezing. She has history of asthma. She currently has no albuterol rescue inhaler. She is afebrile. On exam she is found to be alert and oriented in no acute distress. Heart is regular rate and rhythm without murmur. Lungs demonstrate wheezing and cough. There are no crackles. Abdomen is soft and nontender. Extremities are normal. Patient received a DuoNeb treatment with improvement. Chest x-ray was suspicious for left lower lobe pneumonia. She was started on azithromycin. A take-home packet of albuterol nebulizer doses was dispensed. The tubing and mouthpiece for nebulizer treatments was sent home with her so that she could use her granddaughter's nebulizer machine. Patient also received a take-home packet of Zofran and IV fluids due to some nausea and vomiting. See discharge instructions. (BILLIE BECERRA MD) Diagnostic Imaging Diagonstic Imaging: Xray Plain Films/CT/US/NM/MRI: chest Comments Chest x-ray viewed by me and report reviewed. See report below: NAME: CHEVY ANDERSON MED REC#: [id number] PT STATUS: REG ER : 1950 PHYSICIAN: BILLIE BECERRA MD ADMIT DATE: 11/23/17/ER Draft Date of Exam:11/23/17 CHEST PA/LAT (2 VIEW) INDICATION: Fever and cough. EXAMINATION: PA and lateral chest was obtained at 5:38 p.m. COMPARISON: 09/08/2017. FINDINGS: Patient has had prior sternotomy. The heart is normal in size. Mediastinal silhouette is unremarkable. There is a parenchymal density in the left infrahilar region which is indeterminate but may represent either infiltrate or nodule. This is a new finding compared to the previous study. Right lung is clear. IMPRESSION: Indeterminate parenchymal density in the left lung base, not seen on the prior study. This may represent infiltrate or less likely nodule, recommend followup until resolution. Dictated on workstation # [id number] Dict: 11/23/17 173 Trans: 11/23/17 174 [facility] [id number] Interpreted by: ARLENE BAILEY MD (BILLIE BECERRA MD) Departure Impression Impression: Primary Impression: Left lower lobe pneumonia Qualified Codes: J18.1 - Lobar pneumonia, unspecified organism Additional Impressions: Asthma exacerbation Qualified Codes: J45.901 - Unspecified asthma with (acute) exacerbation Nausea vomiting and diarrhea Disposition: 01 HOME, SELF-CARE Condition: Improved Departure-Patient Inst. Decision time for Depature: 18:10 (BILLIE BECERRA MD) Referrals: AARON AMOS MD (PCP/Family) Primary Care Physician Patient Instructions: Pneumonia, Adult (DC) Add. Discharge Instructions: Drink plenty of clear liquids. Complete your antibiotics as prescribed. Use your nebulizer every 4 hours as needed for shortness of breath and wheezing. Alternatively, use your albuterol inhaler up to 4 puffs and a four- hour period of time as needed for wheezing and shortness of air. Follow-up with your primary care provider in about 2 weeks for repeat chest x- ray. Return to the ER if symptoms worsen. All discharge instructions reviewed with patient and/or family. Voiced understanding. Scripts Albuterol Sulfate (PROAIR HFA) 1 Puff Puff 1-4 PUFF IH Q4H Y for SHORTNESS OF BREATH, #1 PUFF 1 PUFF = 90 MCG Prov: BILLIE BECERRA MD 11/23/17 Azithromycin (Azithromycin) 250 Mg Tablet 250 MG PO DAILY, #4 TAB Prov: BILLIE BECERRA MD 11/23/17 Albuterol Sulfate (Albuterol Sulfate) 2.5 Mg/0.5 Ml Vial.neb 2.5 MG IH Q4H Y for SHORTNESS OF BREATH, #30 EACH Prov: BILLIE BECERRA MD 11/23/17 GANESH HUMPHREYS MEDICAL STUDENT Nov 23, 2017 16:49 BILLIE BECERRA MD Nov 23, 2017 18:17
[2017-11-23 17:04] LABS: BASOPHILS % (AUTO) 0 % (0-10); EOSINOPHILS % (AUTO) 0 % (0-10); HEMATOCRIT 38 % (35-52); HEMOGLOBIN 12.8 G/DL (11.5-16.0); LYMPHOCYTES # (AUTO) 1.3 X 10^3 (1.0-4.0); LYMPHOCYTES % (AUTO) 28 % (12-44); MEAN CORPUSCULAR HEMOGLOBIN 31 PG (25-34); MEAN CORPUSCULAR HGB CONC 34 G/DL (32-36); MEAN CORPUSCULAR VOLUME 92 FL (80-99); MEAN PLATELET VOLUME 10.5 FL (7.4-10.4); MONOCYTES # (AUTO) 0.5 X 10^3 (0.0-1.0); MONOCYTES % (AUTO) 9 % (0-12); NEUTROPHILS # (AUTO) 3.1 X 10^3 (1.8-7.8); NEUTROPHILS % (AUTO) 63 % (42-75); PLATELET COUNT 152 10^3/uL (130-400); RED BLOOD COUNT 4.17 10^6/uL (4.35-5.85); WHITE BLOOD COUNT 4.9 10^3/uL (4.3-11.0)
[2017-11-23 17:27] LABS: ALBUMIN 3.7 GM/DL (3.2-4.5); BILIRUBIN,TOTAL 0.7 MG/DL (0.1-1.0); CALCIUM 8.8 MG/DL (8.5-10.1); CREATININE SERUM 1.25 MG/DL (0.60-1.30); POTASSIUM 4.4 MMOL/L (3.6-5.0); TOTAL PROTEIN 7.2 GM/DL (6.4-8.2)
--- NOTE | 2017-11-23 17:41 | Diagnostic Imaging Report ---
INDICATION: Fever and cough. EXAMINATION: PA and lateral chest was obtained at 5:38 p.m. COMPARISON: 09/08/2017. FINDINGS: Patient has had prior sternotomy. The heart is normal in size. Mediastinal silhouette is unremarkable. There is a parenchymal density in the left infrahilar region which is indeterminate but may represent either infiltrate or nodule. This is a new finding compared to the previous study. Right lung is clear. IMPRESSION: Indeterminate parenchymal density in the left lung base, not seen on the prior study. This may represent infiltrate or less likely nodule, recommend followup until resolution. Dictated by: Dictated on workstation # [id number]
[2017-11-23] MEDS ORDERED: RX-ALBUTEROL NEB 2.5 MG/3 ML PACK #5 IH STA (18:14)
[2017-11-23] MEDS ORDERED: AZITHROMYCIN 250 MG TAB (ZITHROMAX) PO ONE (18:15)
[2017-11-23] MEDS ORDERED: RX-ONDANSETRON 4 MG ODT (ZOFRAN) PPK #4 SL STA (18:17)
[2017-11-23] MEDS ORDERED: ALB0.5V IH (18:23)
[2017-11-23] MEDS ORDERED: RT-ALBUINH IH (18:23)
[2017-11-23] MEDS ORDERED: AZIT250T12 PO (18:23)
[2017-11-23 18:43] VITALS: BP 143/41
[2017-11-24] MEDS ORDERED: RT-ALBUINH IH (10:58)
[2017-11-24] MEDS ORDERED: ALBU2.5V4 IH (10:58)
== END 2017-11-23 18:43 | disposition home or self-care (01) ==
LOC: EDUNIT# 13:44 → ER 13:45
DX: J18.1 Lobar pneumonia, unspecified organism (principal); J45.901 Unspecified asthma with (acute) exacerbation; G47.30 Sleep apnea, unspecified; R11.2 Nausea with vomiting, unspecified; R19.7 Diarrhea, unspecified; E03.9 Hypothyroidism, unspecified; I25.10 Atherosclerotic heart disease of native coronary artery without angina pectoris; E78.00 Pure hypercholesterolemia, unspecified; I10 Essential (primary) hypertension; I27.20 Pulmonary hypertension, unspecified; Z85.41 Personal history of malignant neoplasm of cervix uteri; Z90.49 Acquired absence of other specified parts of digestive tract; Z90.89 Acquired absence of other organs; Z95.1 Presence of aortocoronary bypass graft; Z90.710 Acquired absence of both cervix and uterus; Z96.652 Presence of left artificial knee joint
CPT/HCPCS: 36415; 71046; 80053; 85025; 87804; 94640; 94664; 99283

== ENCOUNTER → 2017-12-10 | Outpatient (CLI) | payer MEDICARE ==
[~2017-12-10] MED LIST changes: +ALB0.5V IH; +ALBU2.5V4 IH; +AZIT250T12 PO; +BUDE10.22 IH; +FLUT1AER IH; +RT-ALBUINH IH
--- NOTE | 2017-12-10 11:26 | Diagnostic Imaging Report ---
INDICATION: Pneumonia, followup. TIME OF EXAM: 11:13 AM Correlation is made prior study from 11/23/2017. FINDINGS: Changes of median sternotomy are noted. There has been clearing of left basilar pneumonia since examination from 11/23. No new infiltrate is detected. No effusion or pneumothorax is seen. IMPRESSION: Clearing of left basilar pneumonia since study from 11/23/2017. Dictated by: Dictated on workstation # [id number]
== END ==
LOC: RAD 10:35
PROVIDERS: ATTEND Nurse Practitioner Family
DX: J18.9 Pneumonia, unspecified organism (principal)
CPT/HCPCS: 71046

== ENCOUNTER → 2018-01-28 | Outpatient (CLI) | payer MEDICARE ==
[~2018-01-28] MED LIST changes: +NAPR-915 PO; -NAPR500T4 PO
== END ==
LOC: CARD 14:16
PROVIDERS: ATTEND Internal Medicine Cardiovascular Disease
DX: I35.0 Nonrheumatic aortic (valve) stenosis (principal); I25.10 Atherosclerotic heart disease of native coronary artery without angina pectoris; E78.5 Hyperlipidemia, unspecified; N18.9 Chronic kidney disease, unspecified; I27.20 Pulmonary hypertension, unspecified; R73.02 Impaired glucose tolerance (oral)
CPT/HCPCS: 93306

== ENCOUNTER → 2018-06-10 | Outpatient (CLI) | payer MEDICARE ==
[~2018-06-10] MED LIST changes: +TRAZ-190 PO; -TRAZ100T92 PO
== END ==
LOC: LAB 14:54
PROVIDERS: ATTEND Nurse Practitioner Family
DX: R39.198 Other difficulties with micturition (principal)
CPT/HCPCS: 87088

== ENCOUNTER → 2018-08-05 | Outpatient (CLI) | payer MEDICARE ==
[~2018-08-05] MED LIST changes: +RT-ALBUTEROL SULF 2.5 MG/3 ML PRE-MIX VIAL INH ONE
== END ==
LOC: RT 08:14
PROVIDERS: ATTEND Nurse Practitioner Family
DX: J45.909 Unspecified asthma, uncomplicated (principal)
CPT/HCPCS: 94060; 94726; 94729

== ENCOUNTER → 2018-09-17 | Outpatient (CLI) | payer MEDICARE ==
[~2018-09-17] MED LIST changes: -RT-ALBUTEROL SULF 2.5 MG/3 ML PRE-MIX VIAL INH ONE
--- NOTE | 2018-09-17 16:57 | Diagnostic Imaging Report ---
CT CHEST SCREENING WO TECHNIQUE: Low-dose unenhanced CT of the chest was performed according to the screening protocol. Coronal MIP and sagittal MPR reformats are created. INDICATION: 67-year-old former smoker with [id number] history of smoking. COMPARISON: None available. FINDINGS: Pulmonary findings: No endoluminal nodule within the trachea. No pulmonary mass or consolidation. No noncalcified solid nodules or part solid nodules that would be suspicious for lung cancer. There are a few scattered calcified micronodules compatible with old granulomatous infection. Extrapulmonary findings: No axillary lymphadenopathy. No mediastinal, discrete hilar or juxtaphrenic lymphadenopathy. The heart is normal in size without pericardial effusion. There are changes of CABG. Normal caliber thoracic aorta. No concerning focal osseous lesions. IMPRESSION: 1. Screening lung CT is negative for features of clinically active lung cancer. Lung-RADS category: 1 - Negative Modifier: None. Recommendations: Continued annual screening with low-dose CT in 12 months. Dictated by: Dictated on workstation # [id number]
== END ==
LOC: RAD 15:58
PROVIDERS: ATTEND Nurse Practitioner Family
DX: Z12.2 Encounter for screening for malignant neoplasm of respiratory organs (principal); J45.909 Unspecified asthma, uncomplicated; Z87.891 Personal history of nicotine dependence

== ENCOUNTER → 2018-10-13 | Outpatient (CLI) | payer MEDICARE ==
[~2018-10-13] MED LIST changes: +CATHETER FLUSH 10 ML SYR IV PRN; +REGADENOSON 0.4 MG/5 ML SYR (LEXISCAN) IV ONE
[2018-10-13 09:08] VITALS: BP 144/54
== END ==
LOC: CARD 07:42
PROVIDERS: ATTEND Internal Medicine Cardiovascular Disease
DX: I25.10 Atherosclerotic heart disease of native coronary artery without angina pectoris (principal)
CPT/HCPCS: 78452; 93017

== ENCOUNTER 2018-10-27 08:52 | Day surgery (SDC) | payer MEDICARE ==
[2018-10-27] VITALS (10 sets, daily range): BP systolic 123–155; BP diastolic 52–76
[~2018-10-27] VITALS: Ht 170.2 cm; Wt 123.4 kg
[~2018-10-27 08:52] MED LIST changes: -CATHETER FLUSH 10 ML SYR IV PRN; -REGADENOSON 0.4 MG/5 ML SYR (LEXISCAN) IV ONE
[2018-10-27] MEDS ORDERED: NS IV 1000 ML 1,000 ML IV SCH ×2 (08:53→12:03)
[2018-10-27] MEDS ORDERED: HEParin (CATH LAB) 2,000 ML IV ONE (08:57)
[2018-10-27] MEDS ORDERED: LIDOCAINE 1% INJ 20 ML 20 ML VIAL ONE (08:57)
[2018-10-27] MEDS ORDERED: NS IV 1000 ML 1,000 ML ONE (08:57)
[2018-10-27 09:35] LABS: HEMOGLOBIN 12.9 G/DL (11.5-16.0); RED BLOOD COUNT 4.21 10^6/uL (4.35-5.85); RED CELL DISTRIBUTION WIDTH 14.4 % (10.0-14.5); WHITE BLOOD COUNT 4.2 10^3/uL (4.3-11.0)
[2018-10-27] MEDS ORDERED: FLU QUADRIvalent (5+ YOA) 2018-2019 (AFLURIA) 0.5 ML IM ONE (09:45)
[2018-10-27 09:52] LABS: ALBUMIN 4.2 GM/DL (3.2-4.5); BILIRUBIN,TOTAL 0.7 MG/DL (0.1-1.0); CREATININE SERUM 1.29 MG/DL (0.60-1.30); INR 1.5 (0.8-1.4); POTASSIUM 4.8 MMOL/L (3.6-5.0); PROTHROMBIN TIME PATIENT 17.8 SEC (12.2-14.7); TOTAL PROTEIN 7.8 GM/DL (6.4-8.2)
[2018-10-27] MEDS ORDERED: WARF-48 PO (10:06)
[2018-10-27] MEDS ORDERED: OMEG-91 PO (10:06)
[2018-10-27] MEDS ORDERED: CETI10TA20 PO (10:06)
[2018-10-27] MEDS ORDERED: LEVO112T55 PO (10:06)
[2018-10-27] MEDS ORDERED: BUDE10.2 IH (10:06)
[2018-10-27] MEDS ORDERED: RT-ALBUINH INH (10:06)
[2018-10-27] MEDS ORDERED: ASPI-983 PO (10:06)
[2018-10-27] MEDS ORDERED: PANT40TA2 PO (10:06)
[2018-10-27] MEDS ORDERED: POTA10TA36 PO (10:06)
[2018-10-27] MEDS ORDERED: FURO40TA4 PO (10:06)
[2018-10-27] MEDS ORDERED: TIOT4MIS2 IH (10:08)
[2018-10-27] MEDS ORDERED: fentaNYL INJECTION 100 MCG/2 ML AMP ONE (11:09)
[2018-10-27] MEDS ORDERED: MIDAZOLAM 5 MG/5 ML (VERSED) VIAL ONE (11:09)
--- NOTE | 2018-10-27 11:21 | Cardiac Procedure Note-CS/ASA ---
Pre-Procedure Note Pre-Op Procedure Note H&P Reviewed The H&P was reviewed, patient examined and no changes noted. Date H&P Reviewed: Oct 27, 2018 Time H&P Reviewed: 11:21 Conscious Sedation Pre-Proced Time 11:21 ASA Score 3 For ASA 3 and 4: Consider anesthesia and medical clearance. Also, for patients with a history of failed moderate sedation consider anesthesia. Airway Lungs Heart ASA score ASA 1: a normal healthy patient ASA 2: a patient with a mild systemic disease (mid diabetes, controlled hypertension, obesity ASA 3: a patient with a severe systemic disease that limits activity (angina , COPD, prior Myocardial infarction) ASA 4: a patient with an incapacitating disease that is a constant threat to life (CHF, renal failure) ASA 5: a moribund patient not expected to survive 24 hrs. (ruptured aneurysm) ASA 6: a declared brain patient whose organs are being harvested. For emergent operations, add the letter E after the classification Mallampati Classification Grade 2 Sedation Plan Analgesia, Amnesia, Plan communicated to team members, Discussed options with patient/fam, Discussed risks with patient/fam The patient is an appropriate candidate to undergo the planned procedure, sedation, and anesthesia. The patient immediately re-assessed prior to indication. CECE SMALLWOOD MD FACP FAC CCDS Oct 27, 2018 11:21
--- NOTE | 2018-10-27 12:09 | Discharge Inst-Cardiology ---
Discharge Inst-Cardiac Discharge Medications Continued Medications: Albuterol Sulfate (Ventolin Hfa) 1 Puff Puff 2 PUFF INH QID PRN for SHORTNESS OF BREATH, PUFF Aspirin (Aspirin EC) 81 Mg Tablet.dr 81 MG PO DAILY, TAB Atorvastatin Calcium (Atorvastatin Calcium) 10 Mg Tablet 10 MG PO HS, TAB Budesonide/Formoterol Fumarate (Symbicort 160-4.5 Mcg Inhaler) 10.2 Gm Hfa.aer.ad 2 PUFF IH BID, INHALER Cetirizine HCl (Zyrtec) 10 Mg Tablet 10 MG PO DAILY, TAB Dicyclomine HCl (Dicyclomine HCl) 20 Mg Tablet 20 MG PO BID, TAB Furosemide (Furosemide) 40 Mg Tablet 40 MG PO Q48H, TAB Levothyroxine Sodium (Levothyroxine Sodium) 112 Mcg Tablet 112 MCG PO DAILY, TAB Montelukast Sodium (Montelukast Sodium) 10 Mg Tablet 10 MG PO HS, TAB [place]-3/Dha/Epa/Dpa/Fish Oil ([place]-3 1,050 mg Softgel) 1 Each Capsule 1 CAP PO DAILY, CAP Pantoprazole Sodium (Protonix) 40 Mg Tablet.dr 40 MG PO DAILY, TAB Potassium Chloride (Potassium Chloride) 10 Meq Tab.er.prt 10 MEQ PO Q48H Tiotropium [place] (Spiriva Respimat 2.5MCG/ACTUATION) 4 Gm Mist.inhal 2 PUFF IH DAILY, INH Trazodone HCl (Trazodone HCl) 100 Mg Tablet 100 MG PO HS, TAB Warfarin Sodium (Warfarin Sodium) 5 Mg Tablet 2.5 MG PO 1800, TAB TAKES 1/2 (5MG) TABLET Discontinued Medications: Naproxen (Naproxen) 500 Mg Tablet 500 MG PO BID WITH MEALS, TAB Orders-Post D/C & Referrals Pneu Vac Indicated: Yes CECE SMALLWOOD MD FAC FAC CCDS Oct 27, 2018 12:09
--- NOTE | 2018-10-27 12:09 | Discharge Inst-Post CATH ---
Discharge Inst-CATH/EP Post Cardiac Cath/EP D/C Inst Follow Up/Plan F/u with Dr Rogers in 3-4 weeks CARDIAC CATH DISCHARGE INSTRUCTIONS *Hold Metformin for 48 hours post heart cath. ACTIVITY * Go Home directly and rest. * Limit activity of the leg (or wrist if it was used) for 7 days including aerobics, swimming, jogging, bicycling, etc. * Restrict stair-climbing for 7 days if possible, if not, climb up with your non -cath leg, then bring together on the same step. * Avoid lifting, pushing, pulling or excessive movement of the affected extremity for 7 days. * Customary sexual activity may be resumed after 2 days-use caution not to use a position that strains or causes pain to the affected extremity. * No driving for 24 hours. * NO SMOKING. * Avoid straining for bowel movements for 7 days. * Gentle walking on level ground is allowed. * Returning to work will depend on the type of procedure and the results. Your doctor will discuss this with you. CALL YOUR DOCTOR FOR ANY OF THE FOLLOWING: *If bleeding from the puncture site occurs- Apply gentle pressure to site with clean cloth and call your doctor or EMS. * If a knot or lump forms under the skin, increases in size, or causes pain. * If bruising appears to be worsening or moving further down your leg instead of disappearing. * Temperature above 101 F. CARE OF YOUR GROIN INCISION; * Bruising or purple discoloration of the skin near the puncture site is common. * You may shower only, no bathtub bathing for 5 days. Be careful to avoid slipping as your leg may feel stiff. * If a closure device was used on your femoral artery, please see the attached guide regarding care of the device and your leg. * Leave the dressing on, until removed by office staff. CARE OF YOUR WRIST INCISION; * Bruising or purple discoloration of the skin near the puncture site is common. * You may shower. * DO NOT submerge wrist. * Leave dressing on, until removed by office staff.. CECE ROGERS MD [facility] CCDS Oct 27, 2018 12:09
--- NOTE | 2018-10-27 12:13 | CARDIAC CATHETERIZATION ---
DATE OF SERVICE: 10/27/2018 CARDIAC CATHETERIZATION REPORT SUBJECTIVE: The patient is a 67-year-old lady with a history of coronary artery disease. She has had a left internal mammary artery graft to left anterior descending artery several years ago. She recently had a myocardial perfusion imaging, which was indicative of inferoapical ischemia. Cardiac catheterization was carried out after having obtained an informed consent. PROCEDURE: She was brought to the cardiac catheterization laboratory in a fasting state. Right groin was prepared and draped in the usual sterile fashion. Lidocaine 1% was used as local anesthesia. Modified Seldinger technique was used to advance a 5-Telugu sheath in the right femoral artery, 5-Telugu JL4 catheter for left coronary angiography, 5-Telugu JR4 catheter for right coronary angiography. A 5-Telugu HARRY catheter was used for angiography of the left internal mammary artery graft to left anterior descending artery. A 5-Telugu pigtail catheter was used for left heart catheterization and left ventricular angiography. Pigtail was pulled back to the aortic root and aortic root angiography was performed. Pigtail catheter was removed. Angiography of the right femoral artery was carried out through the sheath. Mynx was used to achieve hemostasis. She tolerated the procedure well. HEMODYNAMICS: Left ventricular end-diastolic pressure following coronary angiography was 13 mmHg. There is no significant pressure gradient on pullback across the aortic valve. Ascending aortic pressure is 133/56 with a mean of 79 mmHg. LEFT VENTRICULAR ANGIOGRAPHY: Left ventricular angiography was carried out in the right anterior oblique projection. Global left ventricular systolic function is normal. Left ventricular ejection fraction estimated to be 65 to 70%. No significant mitral regurgitation is seen. AORTIC ROOT ANGIOGRAPHY: Aortic root angiography did not indicate any significant thoracic aortic aneurysm or dissection. Calcification of the aortic arch and the aortic knob are noted. CORONARY ANGIOGRAPHY: Left main coronary artery is free of significant disease. Left anterior descending artery has a 40% ostial and 40% mid vessel stenoses. Left circumflex artery is dominant and has mild plaques. Right coronary artery is nondominant and does not exhibit significant disease. LEFT INTERNAL MAMMARY ARTERY GRAFT ANGIOGRAPHY: Left internal mammary artery graft to left anterior descending artery is diminutive and occluded in its mid portion. CONCLUSIONS: 1. Mild coronary artery disease. 2. Occluded left internal mammary artery graft to left anterior descending artery, but the left anterior descending artery itself has only mild, nonobstructive disease. 3. Normal global left ventricular systolic function with ejection fraction of 65 to 70%. 4. Left ventricular end-diastolic pressure at the high limit of normal. DISCUSSION AND RECOMMENDATIONS: Based on the results of the study, it appears appropriate to continue a conservative approach. Risk factor modification has been reviewed. Current regimen is being continued. Outpatient followup is advised. Job ID: [id number] DocumentID: [id number] Dictated Date: 10/27/2018 12:00:14 Area Operations Director Date: 10/27/2018 12:12:24 Dictated By: CECE SMALLWOOD MD, MA, FACP, FACC,
[2018-10-27] MEDS ORDERED: PATIENT MAY USE OWN MEDS, ALL PO SCH (12:15)
== END 2018-10-27 15:50 | disposition home or self-care (01) ==
LOC: CATH 08:52 → SDC 12:22 → CATH 15:50
PROVIDERS: ATTEND Internal Medicine Cardiovascular Disease
DX: I25.810 Atherosclerosis of coronary artery bypass graft(s) without angina pectoris (principal); J45.909 Unspecified asthma, uncomplicated; I42.9 Cardiomyopathy, unspecified; N18.9 Chronic kidney disease, unspecified; E78.5 Hyperlipidemia, unspecified; E03.9 Hypothyroidism, unspecified; I27.20 Pulmonary hypertension, unspecified; R06.02 Shortness of breath; E74.39 Other disorders of intestinal carbohydrate absorption; R00.1 Bradycardia, unspecified; E88.81 Metabolic syndrome and other insulin resistance; M79.89 Other specified soft tissue disorders; E66.01 Morbid (severe) obesity due to excess calories; Z68.41 Body mass index [BMI] 40.0-44.9, adult; Z79.01 Long term (current) use of anticoagulants; Z79.82 Long term (current) use of aspirin; Z79.899 Other long term (current) drug therapy
CPT/HCPCS: 36415; 80053; 80061; 85027; 85610; 85730; 87081; 93459; 93567

== ENCOUNTER 2018-12-09 20:15 | Emergency (ER) | payer MEDICARE ==
[~2018-12-09] VITALS: Ht 170.2 cm; Wt 118.8 kg
[~2018-12-09 20:15] MED LIST changes: +ASPI-983 PO; +BUDE10.2 IH; +CETI10TA20 PO; +LEVO112T55 PO; +OMEG-91 PO; +PANT40TA2 PO; +POTA10TA36 PO; +RT-ALBUINH INH; +TIOT4MIS2 IH
[2018-12-09] MEDS ORDERED: PROM5SYR PO (20:37)
--- NOTE | 2018-12-09 20:37 | ED Cough/URI ---
General Chief Complaint: Cough/Cold/Flu Symptoms Stated Complaint: CHEST TIGHTNESS,COUGH History of Present Illness Date Seen by Provider: Dec 09, 2018 Time Seen by Provider: 20:20 Initial Comments 68-year-old female Patient presents for 3 day history of cough. She reports it's a nonproductive cough but is keeping her from sleeping. She denies any fevers or myalgias. She has emphysema and is on multiple medications Timing/Duration: intermittent Severity/Quality: dry cough Prior Episodes/Possible Cause: frequent episodes Associated Symptoms: denies symptoms, cough Allergies and Home Medications Allergies Coded Allergies: No Known Drug Allergies (Verified , 02/04/16) Home Medications Albuterol Sulfate 1 Puff Puff, 2 PUFF INH QID PRN for SHORTNESS OF BREATH, ( Reported) Aspirin 81 Mg Tablet.dr, 81 MG PO DAILY, (Reported) Atorvastatin Calcium 10 Mg Tablet, 10 MG PO HS, (Reported) Budesonide/Formoterol Fumarate 10.2 Gm Hfa.aer.ad, 2 PUFF IH BID, (Reported) Cetirizine HCl 10 Mg Tablet, 10 MG PO DAILY, (Reported) Dicyclomine HCl 20 Mg Tablet, 20 MG PO BID, (Reported) Furosemide 40 Mg Tablet, 40 MG PO Q48H, (Reported) Levothyroxine Sodium 112 Mcg Tablet, 112 MCG PO DAILY, (Reported) Montelukast Sodium 10 Mg Tablet, 10 MG PO HS, (Reported) [place]-3/Dha/Epa/Dpa/Fish Oil 1 Each Capsule, 1 CAP PO DAILY, (Reported) Pantoprazole Sodium 40 Mg Tablet.dr, 40 MG PO DAILY, (Reported) Potassium Chloride 10 Meq Tab.er.prt, 10 MEQ PO Q48H, (Reported) Promethazine HCl/Codeine 5 Ml Syrup, 5 ML PO Q6H PRN for COUGH Prescribed by: MANGO OLIVEIRA on 12/09/182036 Tiotropium [place] 4 Gm Mist.inhal, 2 PUFF IH DAILY, (Reported) Trazodone HCl 100 Mg Tablet, 100 MG PO HS, (Reported) Warfarin Sodium 5 Mg Tablet, 2.5 MG PO 1800, (Reported) TAKES 1/2 (5MG) TABLET Patient Home Medication List Home Medication List Reviewed: Yes Review of Systems Review of Systems Constitutional: no symptoms reported, see HPI Respiratory: see HPI, cough All Other Systems Reviewed Negative Unless Noted: Yes Past Yzgzsxo-Rfnbsj-Secjpx Hx Past Med/Social Hx: Reviewed Nursing Past Med/Soc Hx Patient Social History Type Used: Cigarettes Former Smoker, Quit: Oct 02, 2006 Recent Foreign Travel: No Contact w/Someone Who Travel: No Recent Hopitalizations: No Immunizations Up To Date Tetanus Booster (TDap): Less than 5yrs Date of Pneumonia Vaccine: Sep 01, 2012 Date of Influenza Vaccine: Sep 01, 2012 Past Medical History Surgeries: Yes (HIATAL HERNIA, LEFT TKR, SINGLE BYPASS; CATARACTS) Abdominal, Adenoidectomy, Appendectomy, CABG, Eye Surgery, Gallbladder, Hysterectomy, Joint Replacement, Tonsillectomy Respiratory: Yes (CPAP, pulmonary hypertension) Asthma, Pneumonia, Sleep Apnea, COPD Currently Using CPAP: Yes Currently Using BIPAP: No Cardiac: Yes (HX BY-PASS X1 2006) Coronary Artery Disease, High Cholesterol, Hypertension, Valvular Heart Disease Neurological: No Reproductive Disorders: No Female Reproductive Disorders: 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 Sexually Transmitted Disease: No HIV/AIDS: No Kidney Infection, Bladder Infection Gastrointestinal: Yes Gastroesophageal Reflux Musculoskeletal: Yes Arthritis Endocrine: Yes Hypothyroidsim Cataract Loss of Vision: Denies Cancer: Yes (hysterectomy in 1989) Cervical Psychosocial: No Integumentary: No Blood Disorders: Yes (hx of blood clots in 1989 pelvic area & left calf ) Family Medical History Alzheimer's disease 19 MOTHER, , Onset:Unknown G8 BROTHER, , Onset:Unknown Diabetes mellitus G8 BROTHER, Onset:Unknown FH: CHF (congestive heart failure) 19 MOTHER, , Onset:Unknown FH: brain aneurysm 19 FATHER, , Onset:Unknown FH: brain aneurysm 19 FATHER, , Onset:Unknown Hypertension 19 FATHER, , Onset:Unknown 19 MOTHER, , Onset:Unknown G8 BROTHER, Onset:Unknown Myocardial infarction 19 FATHER, , Onset:Unknown 19 MOTHER, , Onset:Unknown Prostate cancer G8 BROTHER, Onset:Unknown TIAs 19 MOTHER, , Onset:Unknown No Pertinent Family Hx Physical Exam Vital Signs - First Documented 12/09/18 20:20 Temp 97.0 Pulse 68 Resp 16 B/P (MAP) 160/75 (103) Pulse Ox 98 O2 Delivery Room Air Capillary Refill : Height: 5'7.00" Weight: 272lbs. 0.0oz. 123.640311of; 42.6 BMI Method:Stated General Appearance: WD/WN, no apparent distress Eyes: Bilateral Eye Normal Inspection, Bilateral Eye PERRL, Bilateral Eye EOMI HEENT: PERRL/EOMI, normal ENT inspection, TMs normal, pharynx normal Neck: non-tender, full range of motion, supple, normal inspection Respiratory: chest non-tender, lungs clear, normal breath sounds, no respiratory distress Cardiovascular: normal peripheral pulses, regular rate, rhythm Gastrointestinal: normal bowel sounds, non tender, soft Extremities: normal range of motion, non-tender, normal capillary refill Neurologic/Psychiatric: no motor/sensory deficits, alert, normal mood/affect, oriented x 3 Skin: normal color, warm/dry Progress/Results/Core Measures Suspected Sepsis SIRS Temperature: Pulse: Respiratory Rate: Blood Pressure / Mean: Results/Orders Vital Signs/I&O 12/09/18 12/09/18 12/09/18 20:20 20:20 20:44 Temp 97.0 97.0 Pulse 68 68 Resp 16 16 B/P (MAP) 160/75 (103) 160/75 (103) Pulse Ox 98 98 O2 Delivery Room Air Room Air Room Air Capillary Refill : Departure Impression Primary Impression: Cough Additional Impression: Upper respiratory infection Qualified Codes: J06.9 - Acute upper respiratory infection, unspecified Disposition: HOME, SELF-CARE Condition: Improved Departure-Patient Inst. Decision time for Depature: 20:35 Referrals: CURTIS CONNELLY MD (PCP/Family) Primary Care Physician Patient Instructions: Cough, Adult (DC), Cough, Runny Nose, and the Common Cold (DC), Viral Upper Respiratory Infection, Adult (DC) Add. Discharge Instructions: Continue to take your home medications and inhalers as prescribed by Dr. Connelly. Use the promethazine with codeine cough syrup every 4-6 hours as needed. Follow-up with Dr. Connelly if symptoms are not improving in the next 24-48 hours. Return to the emergency department for difficulty breathing, fever greater than 101 not relieved by Tylenol or ibuprofen, or new, emergent concerns. All discharge instructions reviewed with patient and/or family. Voiced understanding. Scripts Promethazine HCl/Codeine (Prometh-Codein 6.25-10 mg/5 ml) 5 Ml Syrup 5 ML PO Q6H PRN for COUGH, #60 ML 0 Refills Prov: MANGO OLIVEIRA 12/09/18 MANGO OLIVEIRA Dec 09, 2018 20:37
[2018-12-09 20:44] VITALS: BP 160/75
== END 2018-12-09 20:41 | disposition home or self-care (01) ==
LOC: EDUNIT# 20:15 → ER 20:16
DX: J06.9 Acute upper respiratory infection, unspecified (principal); J44.9 Chronic obstructive pulmonary disease, unspecified; G47.30 Sleep apnea, unspecified; I25.10 Atherosclerotic heart disease of native coronary artery without angina pectoris; E78.00 Pure hypercholesterolemia, unspecified; I10 Essential (primary) hypertension; K21.9 Gastro-esophageal reflux disease without esophagitis; E03.9 Hypothyroidism, unspecified; Z85.41 Personal history of malignant neoplasm of cervix uteri; Z87.448 Personal history of other diseases of urinary system; Z79.82 Long term (current) use of aspirin; Z79.51 Long term (current) use of inhaled steroids; Z82.49 Family history of ischemic heart disease and other diseases of the circulatory system; Z87.891 Personal history of nicotine dependence; Z79.01 Long term (current) use of anticoagulants; Z98.890 Other specified postprocedural states; Z90.89 Acquired absence of other organs; Z90.49 Acquired absence of other specified parts of digestive tract; Z95.1 Presence of aortocoronary bypass graft; Z90.710 Acquired absence of both cervix and uterus; Z87.01 Personal history of pneumonia (recurrent)
CPT/HCPCS: 99282

== ENCOUNTER 2019-03-04 15:00 | Outpatient (RCR) | payer MEDICARE ==
[2018-12-15 15:00] VITALS: BP 123/70
[2018-12-15 16:00] VITALS: BP 130/60
[2018-12-24 15:00] VITALS: BP 120/80
[2018-12-24 16:00] VITALS: BP 138/60
[2018-12-29 15:00] VITALS: BP 122/62
[2018-12-29 16:01] VITALS: BP 120/60
[2019-01-05 15:00] VITALS: BP 140/50
[2019-01-05 16:00] VITALS: BP 118/60
[2019-01-07 15:56] VITALS: BP 120/80
[2019-01-07 16:00] VITALS: BP 116/64
[2019-01-14 15:00] VITALS: BP 120/60
[2019-01-14 16:00] VITALS: BP 130/60
[2019-01-19 15:00] VITALS: BP 103/50
[2019-01-19 16:00] VITALS: BP 100/50
[2019-01-21 14:40] VITALS: BP 158/60
[2019-01-21 15:55] VITALS: BP 118/60
[2019-01-26 15:00] VITALS: BP_SYST 150; BP_SYST 158; BP_DIAS 60
[2019-01-26 16:00] VITALS: BP_SYST 130; BP_SYST 170; BP_DIAS 60
[2019-02-02 14:45] VITALS: BP 115/60
[2019-02-02 15:45] VITALS: BP 125/72
[2019-02-04 15:00] VITALS: BP 127/60
[2019-02-04 16:00] VITALS: BP 130/62
[2019-02-16 14:45] VITALS: BP 118/60
[2019-02-16 15:36] VITALS: BP 100/76
[2019-02-18 15:00] VITALS: BP 115/60
[2019-02-18 16:00] VITALS: BP 95/70
[2019-02-23 15:00] VITALS: BP 120/60
[2019-02-23 15:57] VITALS: BP 115/70
[2019-02-25 15:00] VITALS: BP 125/80
[2019-02-25 15:45] VITALS: BP 100/50
[2019-03-02 15:00] VITALS: BP 118/70
[2019-03-02 16:00] VITALS: BP 115/60
[2019-03-04 15:00] VITALS: BP 122/64
[~2019-03-04 15:00] MED LIST changes: +PROM5SYR PO
[2019-03-04 16:00] VITALS: BP 90/50
== END 2019-03-29 | disposition home or self-care (01) ==
LOC: PULM 15:00
PROVIDERS: ATTEND Nurse Practitioner Family
DX: G47.30 Sleep apnea, unspecified (principal); R06.02 Shortness of breath; J45.909 Unspecified asthma, uncomplicated; R94.2 Abnormal results of pulmonary function studies

== ENCOUNTER → 2021-05-09 | Outpatient (CLI) | payer MEDICARE ==
[~2021-05-09] MED LIST changes: +ASPI-1238 PO; -ASPI-983 PO; -CETI10TA20 PO; +CETI10TA49 PO; -MECL-106 PO; +MECL-149 PO; -MONT10TA24 PO; +MONT10TA32 PO; -OMEP40CA36 PO; +OMEP40CA6 PO; -SUCR1ORA PO; +SUCR1ORA15 PO; -TRAZ-190 PO; +TRAZ-227 PO
== END ==
LOC: LABNPT 05:27
PROVIDERS: ATTEND Internal Medicine
DX: R09.81 Nasal congestion (principal); R53.83 Other fatigue; R50.9 Fever, unspecified; R05 Cough; Z20.822 Contact with and (suspected) exposure to COVID-19
CPT/HCPCS: 87635

== ENCOUNTER → 2021-05-17 | Outpatient (CLI) | payer MEDICARE ==
[~2021-05-17] MED LIST changes: +RT-ALBUTEROL SULF 2.5 MG/3 ML PRE-MIX VIAL INH ONE
== END ==
LOC: RT 09:30
PROVIDERS: ATTEND Nurse Practitioner Family
DX: J44.9 Chronic obstructive pulmonary disease, unspecified (principal)
CPT/HCPCS: 94060; 94726; 94729

== ENCOUNTER → 2021-06-06 | Outpatient (CLI) | payer MEDICARE ==
[~2021-06-06] MED LIST changes: -RT-ALBUTEROL SULF 2.5 MG/3 ML PRE-MIX VIAL INH ONE; -SULF1TAB35 PO
--- NOTE | 2021-06-06 12:21 | Diagnostic Imaging Report ---
EXAMINATION: CT chest without contrast (lung screening). TECHNIQUE: Multiple contiguous axial images were obtained through the chest without the use of intravenous contrast according to lung cancer screening protocol. All CT scans use one or more of the following dose optimizing techniques: automated exposure control, MA and/or KvP adjustment based on patient size and exam type or iterative reconstruction. HISTORY: 42 pack year history of smoking. COMPARISON: 09/17/2018 FINDINGS: There is no edema or pneumonia. No pleural effusion. No pneumothorax. There is a stable 8 mm average diameter lingular nodule. There is no axillary or supraclavicular lymphadenopathy. There is no mediastinal lymphadenopathy. There has been coronary artery bypass grafting. Heart size is normal. There are moderate coronary artery calcifications. No pericardial effusion. Aorta is normal in caliber. Limited views of the upper abdomen are unremarkable. There are no suspicious osseous lesions. IMPRESSION: 1. No suspicious pulmonary nodules. LUNG-RADS CATEGORY: 2 MODIFIER: None. Dictated by: Dictated on workstation # [id number]
== END ==
LOC: RAD 10:45
PROVIDERS: ATTEND Nurse Practitioner Family
DX: Z12.2 Encounter for screening for malignant neoplasm of respiratory organs (principal); Z87.891 Personal history of nicotine dependence
CPT/HCPCS: 71271

== ENCOUNTER → 2021-07-04 | Outpatient (CLI) | payer MEDICARE ==
[~2021-07-04] MED LIST changes: +REGADENOSON 0.4 MG/5 ML SYR (LEXISCAN) IV ONE
== END ==
LOC: CARD 14:30
PROVIDERS: ATTEND Internal Medicine Cardiovascular Disease
DX: I08.0 Rheumatic disorders of both mitral and aortic valves (principal)
CPT/HCPCS: 93306

== ENCOUNTER → 2021-07-06 | Outpatient (CLI) | payer MEDICARE ==
[~2021-07-06] VITALS: Ht 170 cm; Wt 101.0 kg
[~2021-07-06] MED LIST changes: +CATHETER FLUSH 10 ML SYR IV PRN
[2021-07-06 08:54] VITALS: BP 141/70
== END ==
LOC: CARD 07:30
PROVIDERS: ATTEND Internal Medicine Cardiovascular Disease
DX: R07.89 Other chest pain (principal)
CPT/HCPCS: 78452; 93017; A9502

== ENCOUNTER 2021-10-29 06:29 | Outpatient (CLI) | payer MEDICARE ==
[~2021-10-29] VITALS: Ht 168 cm; Wt 95.5 kg
[~2021-10-29 06:29] MED LIST changes: -CATHETER FLUSH 10 ML SYR IV PRN; +DICY20TA PO; +MONT-40 PO; -MONT10TA32 PO; -POTA10TA36 PO; +POTA10TA37 PO; -REGADENOSON 0.4 MG/5 ML SYR (LEXISCAN) IV ONE
[2021-10-29] MEDS ORDERED: LEVO100T7 PO (12:36)
[2021-10-29] MEDS ORDERED: NORT25CA PO (12:36)
[2021-10-29] MEDS ORDERED: CHOL-34 PO (12:36)
[2021-10-29] MEDS ORDERED: FURO20TA4 PO (12:36)
[2021-10-29] MEDS ORDERED: FAMO20TA3 PO (12:36)
== END 2021-10-29 12:40 | disposition home or self-care (01) ==
LOC: PREOP 06:29
PROVIDERS: ATTEND Orthopaedic Surgery
DX: Z01.818 Encounter for other preprocedural examination (principal)

== ENCOUNTER 2021-10-31 08:21 | Day surgery (SDC) | payer MEDICARE ==
--- NOTE | 2021-10-30 09:19 | HISTORY AND PHYSICAL ---
DATE OF SERVICE: ADMISSION HISTORY AND PHYSICAL This will be for outpatient surgery on 10/31/2021 for right carpal tunnel release. HISTORY OF PRESENT ILLNESS: The patient is a 70-year-old right hand dominant female with complaints of right hand pain and paresthesias. She underwent an EMG nerve conduction study, which revealed evidence of bilateral carpal tunnel syndrome. She reports progressively worsening bilateral hand pain. She reports night pain. She reports numbness and difficulty with fine motor skills. Due to progressive symptoms and failure to improve with conservative measures, the patient has elected to proceed with surgical intervention. REVIEW OF SYSTEMS: No chest pain, no shortness of breath, no dysuria. PAST MEDICAL HISTORY: Asthma, hypertension, hypothyroidism, osteoarthritis, cancer of the cervix and uterus, congestive heart failure and hypothyroidism. PAST SURGICAL HISTORY: Appendectomy, coronary artery bypass, cholecystectomy, hysterectomy, inguinal herniorrhaphy, bilateral knee arthroscopy, left total knee arthroplasty, tonsillectomy. PRIMARY CARE PROVIDER: Dr. Connelly. MEDICATIONS: Furosemide, nitroglycerin, aspirin, fish oil, warfarin, trazodone, atorvastatin, metoprolol, dicyclomine, levothyroxine, Prilosec, potassium, cetirizine, Naprosyn. ALLERGIES: No known drug allergies. SOCIAL HISTORY: The patient denies alcohol and tobacco use. PHYSICAL EXAMINATION: GENERAL: The patient is well-developed, well-nourished, in no acute distress. HEENT: Normocephalic, atraumatic. Pupils are equal, round, reactive to light. Oropharynx is clear. NECK: Supple, no lymphadenopathy. LUNGS: Clear to auscultation bilaterally. HEART: Regular rate and rhythm. ABDOMEN: Soft, nontender, nondistended. EXTREMITIES: The right hand demonstrates positive Tinel's at the carpal tunnel with positive Phalen's maneuver. She has decreased sensation in a median distribution. There is mild thenar atrophy noted on the right. IMPRESSION: Right carpal tunnel syndrome. PLAN: Right carpal tunnel release. The risks, benefits, options, ramifications and recovery have been discussed at length with the patient. She understands and wishes to proceed. Job ID: [id number] DocumentID: [id number] Dictated Date: 10/27/2021 11:14:44 Field Installation Technician Date: 10/27/2021 11:42:59 Dictated By: RAIZA GLASER MD
[~2021-10-31] VITALS: Ht 168 cm; Wt 95.5 kg
[2021-10-31] VITALS (8 sets, daily range): BP systolic 102–143; BP diastolic 44–64
[~2021-10-31 08:21] MED LIST changes: +CHOL-34 PO; +FAMO20TA3 PO; +FURO20TA4 PO; +HYDROcodone/APAP 7.5 MG/325 MG (LORTAB, LORCET PLUS) TABLET PO PRN; +LEVO100T7 PO; +NORT25CA PO
[2021-10-31] MEDS ORDERED: ceFAZolin INJECTION 1,000 MG VIAL IV ONE (08:45)
[2021-10-31] MEDS ORDERED: LACTATED RINGERS 1,000 ML IV PRN (08:45)
[2021-10-31] MEDS ORDERED: BUPIVACAINE 0.5% 30 ML (SENSORCAINE) VIAL ONE (08:46)
--- NOTE | 2021-10-31 08:54 | Progress Note-Pre Operative ---
Pre-Operative Progress Note H&P Reviewed The H&P was reviewed, patient examined and no changes noted. Date Seen by Provider: Oct 31, 2021 Time Seen by Provider: 08:53 Date H&P Reviewed: Oct 31, 2021 Time H&P Reviewed: 07:11 Pre-Operative Diagnosis: right carpal tunnel syndrome RAIZA GLASER MD Oct 31, 2021 08:53
--- NOTE | 2021-10-31 08:54 | Progress Note-Post Operative ---
Post-Operative Progess Note Surgeon (s)/Cleaning Associate (s) Surgeon RAIZA GLASER MD Cleaning Associate: Lewis White Pre-Operative Diagnosis right carpal tunnel syndrome Post-Operative Diagnosis right carpal tunnel syndrome Procedure & Operative Findings Date of Procedure 10/31/21 Procedure Performed/Findings right open carpal tunnel release Anesthesia Type MAC plus local Estimated Blood Loss Estimated blood loss (mL): minimal Specimens/Packing Specimens Removed none Packing: none RAIZA GLASER MD Oct 31, 2021 08:54
[2021-10-31] MEDS ORDERED: PROPOFOL INJECTION 50 ML IV ONE (09:15)
[2021-10-31] MEDS ORDERED: MIDAZOLAM 2 MG/2 ML (VERSED) VIAL ONE (09:15)
[2021-10-31] MEDS ORDERED: LIDOCAINE 1% INJ 20 ML 20 ML VIAL ONE (09:29)
[2021-10-31] MEDS ORDERED: morphine INJ 10 MG/ML 1ML (SYR OR VIAL) IVP ONE (10:15)
--- NOTE | 2021-10-31 11:46 | Anesthesia-General Post-Op ---
MAC Patient Condition Mental Status/LOC: Same as Preop Cardiovascular: Satisfactory Nausea/Vomiting: Absent Respiratory: Satisfactory Pain: Controlled Complications: Absent Post Op Complications Complications None Follow Up Care/Instructions Patient Instructions None needed. Anesthesiology Discharge Order Discharge Order Patient is doing well, no complaints, stable vital signs, no apparent adverse anesthesia problems. No complications reported per nursing. PETAR TOBIAS CRNA Oct 31, 2021 11:46
--- NOTE | 2021-10-31 16:34 | OPERATIVE REPORT ---
DATE OF SERVICE: 10/31/2021 PREOPERATIVE DIAGNOSIS: Right carpal tunnel syndrome. POSTOPERATIVE DIAGNOSIS: Right carpal tunnel syndrome. PROCEDURE: Right open carpal tunnel release. SURGEON: Julius Vaca MD [facility] NURSE PRACTITIONER: Lewis Nunez, who assisted throughout the procedure and closed the incision. ANESTHESIA: Monitored anesthesia care plus local by Gino Jason CRNA. TOURNIQUET TIME: 2 minutes at 250 mmHg. ESTIMATED BLOOD LOSS: Minimal. DRAINS: None. COMPLICATIONS: None. POSTOPERATIVE PLAN: Routine protocol. The patient was transferred to the recovery room awake and in stable condition. STATEMENT OF MEDICAL NECESSITY: The patient is a 70-year-old right hand dominant female with complaints of right hand pain and paresthesias. She had positive Tinel's of carpal tunnel with positive Phalen's maneuver. She tried rest, activity modifications, and anti-inflammatories without relief. Due to functional impairment and failure to improve with conservative measures, the patient elected to proceed with surgical intervention. DESCRIPTION OF PROCEDURE: After risks and benefits of procedure were discussed and questions were answered, an informed consent was signed and placed on chart, the operative site was confirmed in the preoperative holding area and initialed by the surgeon. The patient was then transferred to the operating room and after adequate levels of monitored anesthesia care were obtained, a timeout was called, confirming the operative site. Under sterile conditions, the incision site was infiltrated with a combination of plain lidocaine and plain Marcaine. The right upper extremity was then prepped and draped in the usual sterile fashion with arm elevated, tourniquet was inflated to 250 mmHg. An incision was made in line with radial border of ring finger over the transverse carpal ligament. The underlying soft tissues were sharply dissected. The transverse carpal ligament was identified and sharply incised by pushing through with the scalpel blade. The median nerve was identified and carefully protected throughout the procedure and intact at the conclusion of the procedure. This was confirmed fully released distally under direct visualization. Proximal transverse carpal ligament was spread above and below with dissection scissors and opened with slightly open scissor edges. This was confirmed fully released with a freer. The tourniquet was deflated for a total time of 2 minutes. Pressure was used for hemostasis. Wound was copiously irrigated and closed with 4-0 nylon in a running alternating horizontal mattress fashion. A soft dressing and splint were applied, and the patient was transferred to the recovery room awake and in stable condition. Job ID: [id number] DocumentID: [id number] Dictated Date: 10/31/2021 09:57:03 Senior Hardware Design Engineer Date: 10/31/2021 16:33:26 Dictated By: JULIUS VACA MD
== END 2021-10-31 11:05 ==
LOC: SDC 08:21
PROVIDERS: ATTEND Orthopaedic Surgery
DX: G56.01 Carpal tunnel syndrome, right upper limb (principal); J45.909 Unspecified asthma, uncomplicated; I10 Essential (primary) hypertension; E03.9 Hypothyroidism, unspecified; M19.90 Unspecified osteoarthritis, unspecified site; I50.9 Heart failure, unspecified; Z79.899 Other long term (current) drug therapy; Z79.82 Long term (current) use of aspirin; Z79.01 Long term (current) use of anticoagulants
CPT/HCPCS: 87081

== ENCOUNTER 2021-11-21 05:30 | Outpatient (RCR) | payer MEDICARE ==
[~2021-11-21] VITALS: Ht 167 cm; Wt 96.0 kg
[~2021-11-21 05:30] MED LIST changes: -HYDROcodone/APAP 7.5 MG/325 MG (LORTAB, LORCET PLUS) TABLET PO PRN
== END 2021-11-21 16:54 | disposition home or self-care (01) ==
LOC: PREOP 05:30 → EDSTATUS 10:00 → PREOP 16:54
PROVIDERS: ATTEND Orthopaedic Surgery
DX: Z01.818 Encounter for other preprocedural examination (principal)

== ENCOUNTER 2021-11-28 05:49 | Day surgery (SDC) | payer MEDICARE ==
--- NOTE | 2021-11-21 07:57 | HISTORY AND PHYSICAL ---
DATE OF SERVICE: 11/28/2021 ADMISSION HISTORY AND PHYSICAL DATE OF ADMISSION: 11/28/2021. This will be for outpatient surgery on 11/28/2021 for a left carpal tunnel release. HISTORY OF PRESENT ILLNESS: The patient is a 70-year-old right hand dominant female with complaints of progressively worsening left hand pain and paresthesias. She underwent an EMG nerve conduction study, which revealed evidence of left carpal tunnel syndrome. She reports night pain. She reports numbness and difficulty with fine motor skills. Due to progressive symptoms and failure to improve with conservative measures, the patient has elected to proceed with surgical intervention. REVIEW OF SYSTEMS: No chest pain, no shortness of breath, and no dysuria. PAST MEDICAL HISTORY: Asthma, hypertension, hypothyroidism, osteoarthritis, cervical cancer, congestive heart failure, and hypothyroidism. PAST SURGICAL HISTORY: Appendectomy, coronary artery bypass, cholecystectomy, hysterectomy, inguinal herniorrhaphy, bilateral knee arthroscopy, left total knee arthroplasty, tonsillectomy, and right carpal tunnel release. PRIMARY CARE PROVIDER: Dr. Connelly. MEDICATIONS: Furosemide, nitroglycerin, aspirin, fish oil, warfarin, trazodone, atorvastatin, metoprolol, dicyclomine, levothyroxine, Prilosec, potassium, cetirizine, and Naprosyn. ALLERGIES: No known drug allergies. SOCIAL HISTORY: The patient denies alcohol and tobacco use. PHYSICAL EXAMINATION: GENERAL: The patient is well-developed, well-nourished, in no acute distress. HEENT: Normocephalic and atraumatic. Pupils are equal, round, and reactive to light. Oropharynx is clear. NECK: Supple with no lymphadenopathy. LUNGS: Clear to auscultation bilaterally. HEART: Regular rate and rhythm. ABDOMEN: Soft, nontender, and nondistended. EXTREMITIES: The left hand demonstrates positive Tinel's of carpal tunnel with positive Phalen's maneuver. She has decreased sensation in the median distribution with slight weakness with thumb palmar abduction. She has negative Spurling's maneuver. IMPRESSION: Left carpal tunnel syndrome. PLAN: Left carpal tunnel release. The risks, benefits, options, ramifications, and recovery have been discussed at length with the patient. She understands and wishes to proceed. Job ID: [id number] DocumentID: [id number] Dictated Date: 11/14/2021 17:45:20 Corrective Therapy Aide Teacher Date: 11/14/2021 17:59:30 Dictated By: RAIZA GLASER MD
[2021-11-28] VITALS (8 sets, daily range): BP systolic 131–159; BP diastolic 57–67
[~2021-11-28] VITALS: Ht 167 cm; Wt 96.0 kg
[2021-11-28] MEDS ORDERED: LACTATED RINGERS 1,000 ML IV PRN (06:15)
[2021-11-28] MEDS ORDERED: ceFAZolin INJECTION 1,000 MG VIAL IV ONE (06:15)
[2021-11-28] MEDS ORDERED: PROPOFOL INJECTION 50 ML IV ONE (06:48)
[2021-11-28] MEDS ORDERED: MIDAZOLAM 2 MG/2 ML (VERSED) VIAL ONE (06:48)
[2021-11-28] MEDS ORDERED: LIDOCAINE 1% INJ 20 ML VIAL ONE (07:05)
[2021-11-28] MEDS ORDERED: BUPIVACAINE 0.5% 30 ML (SENSORCAINE) VIAL ONE (07:05)
[2021-11-28] MEDS ORDERED: HYDROcodone/APAP 7.5 MG/325 MG (LORTAB, LORCET PLUS) TABLET PO PRN (07:30)
--- NOTE | 2021-11-28 07:32 | Progress Note-Pre Operative ---
Pre-Operative Progress Note H&P Reviewed The H&P was reviewed, patient examined and no changes noted. Date Seen by Provider: Nov 28, 2021 Time Seen by Provider: 07:20 Date H&P Reviewed: Nov 28, 2021 Time H&P Reviewed: 07:11 Pre-Operative Diagnosis: left carpal tunnel syndrome RAIZA GLASER MD Nov 28, 2021 07:32
--- NOTE | 2021-11-28 07:33 | Progress Note-Post Operative ---
Post-Operative Progess Note Surgeon (s)/Shipping Technician (s) Surgeon RAIZA GLASER MD Shipping Technician: Lewis Nunez Pre-Operative Diagnosis left carpal tunnel syndrome Post-Operative Diagnosis left carpal tunnel syndrome Procedure & Operative Findings Date of Procedure 11/28/21 Procedure Performed/Findings left carpal tunnel release Anesthesia Type MAC plus local Estimated Blood Loss Estimated blood loss (mL): minimal Specimens/Packing Specimens Removed none Packing: none RAIZA GLASER MD Nov 28, 2021 07:33
[2021-11-28] MEDS ORDERED: GLYCOPYRROLATE 0.2 MG/ML (ROBINUL) 2 ML VIAL ONE (07:41)
[2021-11-28] MEDS ORDERED: HYDROmorphone 2 MG/ML VIAL (DILAUDID) IV ONE (08:15)
[2021-11-28] MEDS ORDERED: ONDANSETRON 4 MG/2 ML (SDV) Z0FRAN IVP PRN (08:15)
--- NOTE | 2021-11-28 10:32 | Anesthesia-General Post-Op ---
MAC Patient Condition Mental Status/LOC: Same as Preop Cardiovascular: Satisfactory Nausea/Vomiting: Absent Respiratory: Satisfactory Pain: Controlled Complications: Absent Post Op Complications Complications None Follow Up Care/Instructions Patient Instructions None needed. Anesthesiology Discharge Order Discharge Order Patient is doing well, no complaints, stable vital signs, no apparent adverse anesthesia problems. No complications reported per nursing. MICHEAL CASANOVA CRNA Nov 28, 2021 10:32
--- NOTE | 2021-11-28 14:32 | OPERATIVE REPORT ---
DATE OF SERVICE: 11/28/2021 PREOPERATIVE DIAGNOSIS: Left carpal tunnel syndrome. POSTOPERATIVE DIAGNOSIS: Left carpal tunnel syndrome. PROCEDURE PERFORMED: Left open carpal tunnel release. SURGEON: Julius Glaser MD. SERVICE STATION CASHIER: Lewis Nunez, who assisted throughout the procedure and closed the incision. ANESTHESIA: Monitored anesthesia care plus local by Dakota Cardona CRNA. TOURNIQUET TIME: Two minutes at 250 mmHg. ESTIMATED BLOOD LOSS: Minimal. DRAINS: None. COMPLICATIONS: None. POSTOPERATIVE PLAN: Routine protocol. The patient was transferred to the recovery room awake and in stable condition. STATEMENT OF MEDICAL NECESSITY: The patient is a 71-year-old female with complaints of left hand pain and paresthesias. She had a positive Tinel's with carpal tunnel and positive Phalen's maneuver. She had tried rest, activity modifications, and splinting without relief. Due to functional impairment and failure to improve with conservative measures, the patient elected to proceed with surgical intervention. DESCRIPTION OF PROCEDURE: After the risks and benefits of the procedure were discussed and questions were answered, an informed consent was signed and placed on chart, the operative site was confirmed in the preoperative holding area initialed by the surgeon. The patient was then transferred to the operating room. After adequate levels of monitored anesthesia care were obtained, a timeout was called, confirming the operative site and under sterile conditions, the incision site was infiltrated with a combination of plain lidocaine and plain Marcaine over the left palm and wrist. The left upper extremity was then prepped and draped in the usual sterile fashion with arm elevated, tourniquet was inflated to 250 mmHg. A longitudinal incision was made over the transverse carpal ligament in line with the radial border of the ring finger. The underlying soft tissues were carefully dissected. The transverse carpal ligament was identified and sharply incised by pushing through with the scalpel blade. The median nerve was identified and carefully protected throughout the procedure and intact at the conclusion of the procedure. Distally, the transverse carpal ligament was confirmed fully released under direct visualization. Proximally, the transverse carpal ligament was spread above and below with dissection scissors and opened with slightly open scissor edges. This was confirmed fully released with a freer. The tourniquet was deflated for a total tourniquet time of 2 minutes. Pressure was used for hemostasis. The wound was copiously irrigated and closed with 4-0 nylon in a running alternating horizontal mattress fashion. A soft dressing and splint were applied. The patient was transferred to the recovery room awake and in stable condition. Job ID: [id number] DocumentID: [id number] Dictated Date: 11/28/2021 08:07:48 Schedule Clerk Date: 11/28/2021 14:31:31 Dictated By: JULIUS GLASER MD
== END 2021-11-28 09:45 | disposition home or self-care (01) ==
LOC: SDC 05:49
PROVIDERS: ATTEND Orthopaedic Surgery
DX: G56.02 Carpal tunnel syndrome, left upper limb (principal); I11.0 Hypertensive heart disease with heart failure; I50.9 Heart failure, unspecified; J44.9 Chronic obstructive pulmonary disease, unspecified; G47.33 Obstructive sleep apnea (adult) (pediatric); E03.9 Hypothyroidism, unspecified; K21.9 Gastro-esophageal reflux disease without esophagitis; I27.20 Pulmonary hypertension, unspecified; Z95.1 Presence of aortocoronary bypass graft; Z86.718 Personal history of other venous thrombosis and embolism; Z79.82 Long term (current) use of aspirin; Z79.890 Hormone replacement therapy; Z79.899 Other long term (current) drug therapy; Z79.01 Long term (current) use of anticoagulants; Z99.89 Dependence on other enabling machines and devices
CPT/HCPCS: 87081

== ENCOUNTER 2021-11-30 15:49 | Emergency (ER) | payer MEDICARE ==
[~2021-11-30] VITALS: Ht 167.7 cm; Wt 97.5 kg
--- NOTE | 2021-11-30 16:21 | ED Upper Extremity ---
General Stated Complaint: L HAND SWELLING Source: patient Exam Limitations: no limitations History of Present Illness Date Seen by Provider: Nov 30, 2021 Time Seen by Provider: 16:16 Initial Comments To ER with left hand swelling. She had a carpal tunnel release by Dr. Vaca 2 days ago. She noticed some swelling today to the fingers and the distal part of her hand. Called the office and the nurse told her to take the dressing off and if it had not gone back down within an hour she should come to ER. Onset: this morning Severity: moderate Pain/Injury Location: left hand Method of Injury: fell Modifying Factors: Worse With Movement Allergies and Home Medications Allergies Coded Allergies: No Known Drug Allergies (Verified , 11/21/21) Patient Home Medication List Home Medication List Reviewed: Yes Albuterol Sulfate (Ventolin Hfa) 1 Puff Puff, 2 PUFF INH QID PRN for SHORTNESS OF BREATH, (Reported) Entered as Reported by: SHELLY NIX on 10/27/18 1006 Aspirin (Aspirin EC) 81 Mg Tablet.dr, 81 MG PO DAILY, (Reported) Entered as Reported by: SHELLY NIX on 10/27/18 1006 Atorvastatin Calcium (Atorvastatin Calcium) 10 Mg Tablet, 10 MG PO HS, (Reported) Entered as Reported by: SYLVIA MCDANIELS on 02/16/16 1006 Budesonide/Formoterol Fumarate (Symbicort 160-4.5 Mcg Inhaler) 10.2 Gm Hfa.aer.ad, 2 PUFF IH BID, (Reported) Entered as Reported by: SHELLY NIX on 10/27/18 1006 Cetirizine HCl (Zyrtec) 10 Mg Tablet, 10 MG PO DAILY, (Reported) Entered as Reported by: SHELLY NIX on 10/27/18 1006 Cholecalciferol (Vitamin D3) (Vitamin D3) 25 Mcg Tablet, 25 MCG PO DAILY, (Reported) Entered as Reported by: IVELISSE WALLACE on 10/29/21 1236 Famotidine (Acid Cut Off Sawyer (FAMOTIDINE)) 20 Mg Tablet, 20 MG PO BID, (Reported) Entered as Reported by: IVELISSE WALLACE on 10/29/21 1236 Furosemide (Furosemide) 20 Mg Tablet, 20 MG PO Q48H, (Reported) Entered as Reported by: IVELISSE WALLACE on 10/29/21 1236 Levothyroxine Sodium (Levothyroxine Sodium) 100 Mcg Tablet, 100 MCG PO DAILY, (Reported) Entered as Reported by: IVELISSE WALLACE on 10/29/21 1236 Montelukast Sodium (Montelukast Sodium) 10 Mg Tablet, 10 MG PO HS, (Reported) Entered as Reported by: IVELISSE WALLACE on 08/04/15 1636 Nortriptyline HCl (Nortriptyline HCl) 25 Mg Capsule, 25 MG PO HS, (Reported) Entered as Reported by: IVELISSE WALLACE on 10/29/21 1236 [place]-3/Dha/Epa/Dpa/Fish Oil ([place]-3 1,050 mg Softgel) 1 Each Capsule, 1 CAP PO DAILY, (Reported) Entered as Reported by: SHELLY NIX on 10/27/18 1006 Potassium Chloride (Potassium Chloride) 10 Meq Tab.er.prt, 10 MEQ PO Q48H, (Reported) Entered as Reported by: SHELLY NIX on 10/27/18 1006 Warfarin Sodium (Warfarin Sodium) 5 Mg Tablet, 2.5 MG PO 1800, (Reported) Entered as Reported by: SHELLY NIX on 10/27/18 1006 Review of Systems Constitutional: see HPI EENTM: see HPI Respiratory: no symptoms reported Cardiovascular: no symptoms reported Genitourinary: no symptoms reported Musculoskeletal: see HPI Skin: no symptoms reported Psychiatric/Neurological: No Symptoms Reported Past Bokwmpe-Ljyemf-Hmnnun Hx Immunizations Up To Date Tetanus Booster (TDap): Less than 5yrs First/Initial COVID19 Vaccinat: MAY 2021 Second COVID19 Vaccination Giovanny: JUNE 2021 Third COVID19 Vaccination Date: MAY 2021 Seasonal Allergies Seasonal Allergies: Yes Past Medical History Surgeries: Yes (HIATAL HERNIA, LEFT TKR, SINGLE BYPASS; CATARACTS, L femur fx) Abdominal, Adenoidectomy, Appendectomy, CABG, Eye Surgery, Gallbladder, Hysterectomy, Joint Replacement, Tonsillectomy Respiratory: Yes (CPAP, pulmonary hypertension) Asthma, Sleep Apnea, COPD Currently Using CPAP: No Currently Using BIPAP: No Cardiac: Yes (HX BY-PASS 2006) Coronary Artery Disease, High Cholesterol, Hypertension, Valvular Heart Disease Neurological: No Reproductive Disorders: No Female Reproductive Disorders: Denies 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 Sexually Transmitted Disease: No HIV/AIDS: No Genitourinary: No Kidney Infection, Bladder Infection Gastrointestinal: No (hx hiatal hernia sx) Gastroesophageal Reflux Musculoskeletal: Yes Arthritis Endocrine: Yes Hypothyroidsim HEENT: Yes Cataract Loss of Vision: Denies Cancer: Yes (hysterectomy in 1989) Cervical Psychosocial: No Integumentary: No Blood Disorders: Yes (hx of blood clots in 1989 pelvic area & left calf ) Family Medical History Alzheimer's disease 19 MOTHER, , Onset:Unknown G8 BROTHER, , Onset:Unknown Diabetes mellitus G8 BROTHER, Onset:Unknown FH: CHF (congestive heart failure) 19 MOTHER, , Onset:Unknown FH: brain aneurysm 19 FATHER, , Onset:Unknown FH: brain aneurysm 19 FATHER, , Onset:Unknown Hypertension 19 FATHER, , Onset:Unknown 19 MOTHER, , Onset:Unknown G8 BROTHER, Onset:Unknown Myocardial infarction 19 FATHER, , Onset:Unknown 19 MOTHER, , Onset:Unknown Prostate cancer G8 BROTHER, Onset:Unknown TIAs 19 MOTHER, , Onset:Unknown No Pertinent Family Hx Physical Exam Vital Signs Capillary Refill : Height, Weight, BMI Height: 5'7.00" Weight: 247lbs. 0.6oz. 118.458648bl; 34.42 BMI Method:Stated General Appearance: WD/WN, no apparent distress HEENT: PERRL/EOMI, normal ENT inspection Respiratory: no respiratory distress, no accessory muscle use Shoulder: normal inspection, non-tender Elbow/Forearm: normal inspection, non-tender Wrist: Yes normal inspection, Yes non-tender Hand: Left (There is a dressing in place over the volar aspect of the wrist without surrounding erythema there is some ecchymosis to the thenar and hypothenar eminence of the left hand. Capillary refill at the fingertips is brisk. There is some edema to the dorsal aspect of the hand that begins at the middle aspect of the metacarpals where her wrist splint stops and extends distally. There is no erythema. There is no edema proximal to this. There is no edema of the forearm or elbow. The wrist splint that was on was very tight. This was removed and replaced with a Colles' splint and Adis wrap. Do not have concern for DVT at this time as the swelling is only dorsally and is only 2 days postoperative and is a distal to where the tight brace was at.) Neurologic/Psychiatric: alert, normal mood/affect, oriented x 3 Skin: normal color, warm/dry Departure Impression Primary Impression: Postoperative swelling Disposition: 01 HOME, SELF-CARE Condition: Stable Departure-Patient Inst. Decision time for Depature: 16:18 Referrals: CURTIS CONTEH MD (PCP) Primary Care Physician NATALIE SIERRA (Family) Primary Care Physician Patient Instructions: NO INSTRUCTIONS GIVEN Add. Discharge Instructions: 1. Elevate the hand is much as possible. Use this new splint instead of the other 1. You will notice an improvement by tomorrow morning. ROSIBEL BATES APRN Nov 30, 2021 16:21
[2021-11-30 16:40] VITALS: BP 137/69
== END 2021-11-30 16:40 | disposition home or self-care (01) ==
LOC: EDUNIT# 15:49 → ER 15:51
DX: L76.82 Other postprocedural complications of skin and subcutaneous tissue (principal); G47.30 Sleep apnea, unspecified; J44.9 Chronic obstructive pulmonary disease, unspecified; I10 Essential (primary) hypertension; I25.10 Atherosclerotic heart disease of native coronary artery without angina pectoris; E78.00 Pure hypercholesterolemia, unspecified; E03.9 Hypothyroidism, unspecified; K21.9 Gastro-esophageal reflux disease without esophagitis; Z79.890 Hormone replacement therapy; Z79.01 Long term (current) use of anticoagulants; Z79.82 Long term (current) use of aspirin; Z79.899 Other long term (current) drug therapy
CPT/HCPCS: 99282; A4565

== ENCOUNTER 2022-03-15 18:01 | Emergency (ER) | payer MEDICARE ==
[~2022-03-15] VITALS: Ht 167 cm; Wt 113.0 kg
--- NOTE | 2022-03-15 19:15 | ED Integumentary General ---
General Chief Complaint: Cardiac/General Problems Stated Complaint: BILAT ARM AND L LEG BRUISING/SWELLING-NO INJ Nursing Triage Note: PATIENT VERBALIZED SHE HAS UNEXPLAINED BRUISING NOTED ON NAIF FOREARMS AND LOWER LEFT LEG. PATIENT VERBALZIED SHE IS ON A BLOOD THINNER, STATES STOPPED THE BLOOD THINNER BECAUSE SHE IS SUPPOSE TO GET A TATTOO FRIDAY. Source: patient Exam Limitations: no limitations History of Present Illness Date Seen by Provider: March 15, 2022 Time Seen by Provider: 19:10 Initial Comments To ER by POYamini with c/o bruising to dorsal aspect of bilat forearms and a knot to posterior left lower leg. These bruises were noted to be enlarging even yesterday despite having stopped her warfarin on Friday of this week (for history of DVT) in preparation for tattoo. Timing/Duration: just prior to arrival Severity: moderate Location: extremities Possible Cause: no cause identified Associated Symptoms: denies symptoms Allergies and Home Medications Allergies Coded Allergies: No Known Drug Allergies (Verified , 11/21/21) Patient Home Medication List Home Medication List Reviewed: Yes Albuterol Sulfate (Ventolin Hfa) 1 Puff Puff, 2 PUFF INH QID PRN for SHORTNESS OF BREATH, (Reported) Entered as Reported by: SHELLY NIX on 10/27/18 1006 Aspirin (Aspirin EC) 81 Mg Tablet.dr, 81 MG PO DAILY, (Reported) Entered as Reported by: SHELLY NIX on 10/27/18 1006 Atorvastatin Calcium (Atorvastatin Calcium) 10 Mg Tablet, 10 MG PO HS, (Reported) Entered as Reported by: SYLVIA MCDANIELS on 02/16/16 1006 Budesonide/Formoterol Fumarate (Symbicort 160-4.5 Mcg Inhaler) 10.2 Gm Hfa.aer.ad, 2 PUFF IH BID, (Reported) Entered as Reported by: SHELLY NIX on 10/27/18 1006 Cetirizine HCl (Zyrtec) 10 Mg Tablet, 10 MG PO DAILY, (Reported) Entered as Reported by: SHELLY NIX on 10/27/18 1006 Cholecalciferol (Vitamin D3) (Vitamin D3) 25 Mcg Tablet, 25 MCG PO DAILY, (Reported) Entered as Reported by: IVELISSE WALLACE on 10/29/21 1236 Famotidine (Acid Digital Production Manager (FAMOTIDINE)) 20 Mg Tablet, 20 MG PO BID, (Reported) Entered as Reported by: IVELISSE WALLACE on 10/29/21 1236 Furosemide (Furosemide) 20 Mg Tablet, 20 MG PO Q48H, (Reported) Entered as Reported by: IVELISSE WALLACE on 10/29/21 1236 Levothyroxine Sodium (Levothyroxine Sodium) 100 Mcg Tablet, 100 MCG PO DAILY, (Reported) Entered as Reported by: IVELISSE WALLACE on 10/29/21 1236 Montelukast Sodium (Montelukast Sodium) 10 Mg Tablet, 10 MG PO HS, (Reported) Entered as Reported by: IVELISSE WALLACE on 08/04/15 1636 Nortriptyline HCl (Nortriptyline HCl) 25 Mg Capsule, 25 MG PO HS, (Reported) Entered as Reported by: IVELISSE WALLACE on 10/29/21 1236 [place]-3/Dha/Epa/Dpa/Fish Oil ([place]-3 1,050 mg Softgel) 1 Each Capsule, 1 CAP PO DAILY, (Reported) Entered as Reported by: SHELLY NIX on 10/27/18 1006 Potassium Chloride (Potassium Chloride) 10 Meq Tab.er.prt, 10 MEQ PO Q48H, (Reported) Entered as Reported by: SHELLY NIX on 10/27/18 1006 Warfarin Sodium (Warfarin Sodium) 5 Mg Tablet, 2.5 MG PO 1800, (Reported) Entered as Reported by: SHELLY NIX on 10/27/18 1006 Review of Systems Review of Systems Constitutional: see HPI EENTM: see HPI Respiratory: no symptoms reported Cardiovascular: no symptoms reported Genitourinary: no symptoms reported Musculoskeletal: no symptoms reported Skin: see HPI Psychiatric/Neurological: No Symptoms Reported Endocrine: No Symptoms Reported Past Gkerxfj-Ohpguv-Gqfayd Hx Immunizations Up To Date Tetanus Booster (TDap): Less than 5yrs First/Initial COVID19 Vaccinat: 05/2021 Second COVID19 Vaccination Giovanny: 06/2021 Third COVID19 Vaccination Date: 05/2021 Seasonal Allergies Seasonal Allergies: Yes Past Medical History Surgeries: Yes (HIATAL HERNIA, LEFT TKR, SINGLE BYPASS; CATARACTS, L femur fx) Abdominal, Adenoidectomy, Appendectomy, CABG, Eye Surgery, Gallbladder, Hysterectomy, Joint Replacement, Tonsillectomy Respiratory: Yes (CPAP, pulmonary hypertension) Asthma, Sleep Apnea, COPD Currently Using CPAP: No Currently Using BIPAP: No Cardiac: Yes (HX BY-PASS X1 2006) Coronary Artery Disease, High Cholesterol, Hypertension, Valvular Heart Disease Neurological: No Reproductive Disorders: No Female Reproductive Disorders: 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 Sexually Transmitted Disease: No HIV/AIDS: No Genitourinary: No Kidney Infection, Bladder Infection Gastrointestinal: No (hx hiatal hernia sx) Gastroesophageal Reflux Musculoskeletal: Yes Arthritis Endocrine: Yes Hypothyroidsim HEENT: Yes Cataract Loss of Vision: Denies Cancer: Yes (hysterectomy in 1989) Cervical Psychosocial: No Integumentary: No Blood Disorders: Yes (hx of blood clots in 1989 pelvic area & left calf ) Family Medical History Alzheimer's disease 19 MOTHER, , Onset:Unknown G8 BROTHER, , Onset:Unknown Diabetes mellitus G8 BROTHER, Onset:Unknown FH: CHF (congestive heart failure) 19 MOTHER, , Onset:Unknown FH: brain aneurysm 19 FATHER, , Onset:Unknown FH: brain aneurysm 19 FATHER, , Onset:Unknown Hypertension 19 FATHER, , Onset:Unknown 19 MOTHER, , Onset:Unknown G8 BROTHER, Onset:Unknown Myocardial infarction 19 FATHER, , Onset:Unknown 19 MOTHER, , Onset:Unknown Prostate cancer G8 BROTHER, Onset:Unknown TIAs 19 MOTHER, , Onset:Unknown No Pertinent Family Hx Physical Exam Vital Signs Vital Signs - First Documented 03/15/22 18:25 Temp 36.8 Pulse 76 Resp 20 B/P (MAP) 12/75 (54) Pulse Ox 96 O2 Delivery Room Air Capillary Refill : Less Than 3 Seconds General Appearance: WD/WN, no apparent distress HEENT: PERRL/EOMI, normal ENT inspection Respiratory: no respiratory distress, no accessory muscle use Extremities: normal range of motion, non-tender, other (yellowish brown ecchymosis to dorsal forearms bilat with small pea sized hematoma palpable within the center of these) Neurologic/Psychiatric: alert, normal mood/affect, oriented x 3 Skin: normal color, warm/dry Skin Problem Character: other (small palpable pea sized mobile nodule just beneath skin posterior left calf with normal overlying skin) Progress/Results/Core Measures Results/Orders My Orders Vital Signs/I&O 03/15/22 18:25 Temp 36.8 Pulse 76 Resp 20 B/P (MAP) 12/75 (54) Pulse Ox 96 O2 Delivery Room Air Blood Pressure Mean: 54 Departure Impression Primary Impression: Anticoagulant effect Disposition: 01 HOME, SELF-CARE Condition: Stable Departure-Patient Inst. Decision time for Depature: 19:15 Referrals: CURTIS CONTEH MD (PCP) Primary Care Physician NATALIE SIERRA (Family) Primary Care Physician Patient Instructions: Going Home on Blood Thinners Add. Discharge Instructions: All discharge instructions reviewed with patient and/or family. Voiced understanding. ROSIBEL BATES [employer] SALESPERSON March 15, 2022 19:15
[2022-03-15 19:38] VITALS: BP 12/75
== END 2022-03-15 19:39 | disposition home or self-care (01) ==
LOC: EDUNIT# 18:01 → ER 18:02
DX: M79.81 Nontraumatic hematoma of soft tissue (principal); T45.515A Adverse effect of anticoagulants, initial encounter; T45.516A Underdosing of anticoagulants, initial encounter; I27.20 Pulmonary hypertension, unspecified; J44.9 Chronic obstructive pulmonary disease, unspecified; G47.30 Sleep apnea, unspecified; Z91.128 Patient's intentional underdosing of medication regimen for other reason; Z86.718 Personal history of other venous thrombosis and embolism; Z99.81 Dependence on supplemental oxygen
CPT/HCPCS: 99281

== ENCOUNTER 2022-03-27 21:32 | Emergency (ER) | payer MEDICARE ==
[~2022-03-27] VITALS: Ht 167 cm; Wt 113.0 kg
--- NOTE | 2022-03-27 23:18 | ED General ---
General Chief Complaint: Dizziness/Syncope Stated Complaint: FALL Nursing Triage Note: c/o syncopal episode after standing up to answer door. pt reports falling back and striking buttocks on dog crate causing her to fall forward to ground from seated position. pt c/o bruising to legs/arms. reports restarted coumadin recently. Source of Information: Patient History of Present Illness Date Seen by Provider: March 27, 2022 Time Seen by Provider: 23:02 Initial Comments PT ARRIVES VIA POV FROM HOME WITH DAUGHTER PT STATES SHE HAS BEEN HAVING ONGOING INTERMITTENT DIZZINESS FOR THE LAST FEW MONTHS, OFTEN HAS TO HOLD ON THE THE DOORWAYS AND TOWNSEND DUE TO DIZZINESS--HAS NEVER SOUGHT CARE FOR IT AROUND 2030 TONIGHT, PT GOT UP QUICKLY TO ANSWER THE DOOR, AND GOT DIZZY, HAD TO HOLD ONTO DOOR FRAME, THEN FELL BACK INTO SITTING POSITION ON A DOG CRATE, THEN FELL FORWARD, LANDING FACE FIRST ONTO CARPETED FLOOR PT DOES NOT RECALL ALL EVENTS, BUT DAUGHTER DOES NOT REPORT ACTUAL SYNCOPAL EPISODE THESE EPISODES OF DIZZINESS ARE ONLY WITH POSITION CHANGES PT IS NOT DIZZY NOW C/O PAIN AND BRUISING TO LEFT BETANCUR HAS CHRONIC HEADACHES, AND IS NO DIFFERENT THAN NORMAL--STATES "I ALWAYS HAVE A HEADACHE" NO VISION CHANGES NO NAUSEA/VOMITING NO NECK OR BACK PAIN NO PARESTHESIAS OR MOTOR DEFICITS. 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 SHE SELF-RESTARTED IT ON Friday03/25/22. PT DOES HAVE HISTORY OF CAD WITH CABG X 1 VESSEL PCP: DR. CONTEH Allergies and Home Medications Allergies Coded Allergies: No Known Drug Allergies (Verified , 11/21/21) Patient Home Medication List Home Medication List Reviewed: Yes Albuterol Sulfate (Ventolin Hfa) 1 Puff Puff, 2 PUFF INH QID PRN for SHORTNESS OF BREATH, (Reported) Entered as Reported by: SHELLY NIX on 10/27/18 1006 Aspirin (Aspirin EC) 81 Mg Tablet.dr 81 MG PO DAILY, (Reported) Entered as Reported by: SHELLY NIX on 10/27/18 1006 Atorvastatin Calcium (Atorvastatin Calcium) 10 Mg Tablet, 10 MG PO HS, (Repo rted) Entered as Reported by: SYLVIA MCDANIELS on 02/16/16 1006 Budesonide/Formoterol Fumarate (Symbicort 160-4.5 Mcg Inhaler) 10.2 Gm Hfa.aer.ad, 2 PUFF IH BID, (Reported) Entered as Reported by: SHELLY NIX on 10/27/18 1006 Cetirizine HCl (Zyrtec) 10 Mg Tablet, 10 MG PO DAILY, (Reported) Entered as Reported by: SHELLY NIX on 10/27/18 1006 Cholecalciferol (Vitamin D3) (Vitamin D3) 25 Mcg Tablet, 25 MCG PO DAILY, (Reported) Entered as Reported by: IVELISSE WALLACE on 10/29/21 1236 Famotidine (Acid Steamer Operator (FAMOTIDINE)) 20 Mg Tablet, 20 MG PO BID, (Reported) Entered as Reported by: IVELISSE WALLACE on 10/29/21 1236 Furosemide (Furosemide) 20 Mg Tablet, 20 MG PO Q48H, (Reported) Entered as Reported by: IVELISSE WALLACE on 10/29/21 1236 Levothyroxine Sodium (Levothyroxine Sodium) 100 Mcg Tablet, 100 MCG PO DAILY, (Reported) Entered as Reported by: IVELISSE WALLACE on 10/29/21 1236 Montelukast Sodium (Montelukast Sodium) 10 Mg Tablet, 10 MG PO HS, (Reported) Entered as Reported by: IVELISSE WALLACE on 08/04/15 1636 Nortriptyline HCl (Nortriptyline HCl) 25 Mg Capsule, 25 MG PO HS, (Reported) Entered as Reported by: IVELISSE WALLACE on 10/29/21 1236 Westfir-3/Dha/Epa/Dpa/Fish Oil (Westfir-3 1,050 mg Softgel) 1 Each Capsule, 1 CAP PO DAILY, (Reported) Entered as Reported by: SHELLY NIX on 10/27/18 1006 Potassium Chloride (Potassium Chloride) 10 Meq Tab.er.prt, 10 MEQ PO Q48H, (Reported) Entered as Reported by: SHELLY NIX on 10/27/18 1006 Scopolamine (Transderm-Scop) 1 Mg/3 Day Patch.td72, 1 EACH TD Q72H Prescribed by: LG DOHERTY on 03/28/22 0029 Warfarin Sodium (Warfarin Sodium) 5 Mg Tablet, 2.5 MG PO 1800, (Reported) Entered as Reported by: SHELLY NIX on 10/27/18 1006 Review of Systems Review of Systems Constitutional: see HPI EENTM: no symptoms reported Respiratory: no symptoms reported Cardiovascular: no symptoms reported Gastrointestinal: no symptoms reported Genitourinary: no symptoms reported Musculoskeletal: see HPI Skin: no symptoms reported Psychiatric/Neurological: See HPI, Headache; Denies Numbness, Denies Paresthesia, Denies Seizure, Denies Tingling, Denies Weakness Hematologic/Lymphatic: See HPI, Blood Clots, Easy Bruising Immunological/Allergic: no symptoms reported Past Wclxbrp-Ybmmck-Wpwrty Hx Patient Social History Tobacco Use?: No Substance use?: No Alcohol Use?: No Pt feels they are or have been: No Immunizations Up To Date Tetanus Booster (TDap): Less than 5yrs First/Initial COVID19 Vaccinat: 05/2021 Second COVID19 Vaccination Giovanny: 06/2021 Third COVID19 Vaccination Date: 05/2021 Seasonal Allergies Seasonal Allergies: Yes Past Medical History Surgery/Hospitalization HX: hernia, left knee, cabg x1, eye, cholecystectomy, hysterectomy, t/a, cad, htn, gerd, copd. Surgeries: Yes (HIATAL HERNIA, LEFT TKR, SINGLE BYPASS; CATARACTS, L femur fx) Abdominal, Adenoidectomy, Appendectomy, Cardiac, CABG, Eye Surgery, Gallbladder, Hysterectomy, Joint Replacement, Orthopedic, Tonsillectomy Respiratory: Yes (CPAP, pulmonary hypertension) Asthma, Sleep Apnea, COPD Currently Using CPAP: No Currently Using BIPAP: No Cardiac: Yes (HX BY-PASS X1 2006) Coronary Artery Disease, High Cholesterol, Hypertension, Valvular Heart Disease Neurological: No Reproductive Disorders: No Female Reproductive Disorders: Denies FITTER HAND History: Hysterectomy Sexually Transmitted Disease: No HIV/AIDS: No Genitourinary: No Kidney Infection, Bladder Infection Gastrointestinal: No (hx hiatal hernia sx) Gastroesophageal Reflux Musculoskeletal: Yes Arthritis Endocrine: Yes Hypothyroidsim HEENT: Yes Cataract Loss of Vision: Denies Cancer: Yes (hysterectomy in 1989) Cervical Psychosocial: No Integumentary: No Blood Disorders: Yes (hx of blood clots in 1989 pelvic area & left calf ) Family Medical History Alzheimer's disease 19 MOTHER, , Onset:Unknown G8 BROTHER, , Onset:Unknown Diabetes mellitus G8 BROTHER, Onset:Unknown FH: CHF (congestive heart failure) 19 MOTHER, , Onset:Unknown FH: brain aneurysm 19 FATHER, , Onset:Unknown FH: brain aneurysm 19 FATHER, , Onset:Unknown Hypertension 19 FATHER, , Onset:Unknown 19 MOTHER, , Onset:Unknown G8 BROTHER, Onset:Unknown Myocardial infarction 19 FATHER, , Onset:Unknown 19 MOTHER, , Onset:Unknown Prostate cancer G8 BROTHER, Onset:Unknown TIAs 19 MOTHER, , Onset:Unknown No Pertinent Family Hx Physical Exam Vital Signs Vital Signs - First Documented 03/27/22 22:56 Temp 36.0 Pulse 85 Resp 16 B/P (MAP) 167/105 (125) Pulse Ox 98 O2 Delivery Room Air Capillary Refill : Less Than 3 Seconds Height, Weight, BMI Height: 5'7.00" Weight: 247lbs. 0.6oz. [id number]; 40.00 BMI Method:Stated General Appearance: No Apparent Distress, WD/WN HEENT: PERRL/EOMI, TMs Normal, Normal ENT Inspection, Pharynx Normal Neck: Full Range of Motion, Normal Inspection, Non Tender, Supple; No Carotid Bruit Respiratory: Normal Breath Sounds, No Accessory Muscle Use, No Respiratory Distress Cardiovascular: Regular Rate, Rhythm, No Edema, No JVD, No Murmur, Normal Peripheral Pulses Gastrointestinal: Non Tender, Soft Back: Normal Inspection Extremity: Normal Capillary Refill, No Calf Tenderness, No Pedal Edema, Other (SMALL HEMATOMA WITH FAINT BRUISING TO MID ANTERIOR LEFT BETANCUR. SKIN IS INTACT. ) Neurologic/Psychiatric: Alert, Oriented x3, No Motor/Sensory Deficits, Normal Mood/Affect, insole and heel stiffener II-XII Norm as Tested; No Abnormal Cerebellar Tests Skin: Normal Color, Warm/Dry, Ecchymosis Progress/Results/Core Measures Suspected Sepsis SIRS Temperature: Pulse: 85 Respiratory Rate: 16 Laboratory Tests 03/27/22 23:30: White Blood Count 4.1L Blood Pressure 167 /105 Mean: 125 Laboratory Tests 03/27/22 23:30: Creatinine 1.40H, INR Comment 1.1, Platelet Count 197 Results/Orders Lab Results Laboratory Tests Test 5/18/22 23:30 Range/Units White Blood Count 4.1 L 4.3-11.0 10^3/uL Red Blood Count 4.15 3.80-5.11 10^6/uL Hemoglobin 12.6 11.5-16.0 g/dL Hematocrit 39 35-52 % Mean Corpuscular Volume 93 80-99 fL Mean Corpuscular Hemoglobin 30 25-34 pg Mean Corpuscular Hemoglobin Concent 33 32-36 g/dL Red Cell Distribution Width 14.6 H 10.0-14.5 % Platelet Count 197 130-400 10^3/uL Mean Platelet Volume 11.1 9.0-12.2 fL Immature Granulocyte % (Auto) 1 % Neutrophils (%) (Auto) 59 42-75 % Lymphocytes (%) (Auto) 32 12-44 % Monocytes (%) (Auto) 7 0-12 % Eosinophils (%) (Auto) 2 0-10 % Basophils (%) (Auto) 1 0-10 % Neutrophils # (Auto) 2.4 1.8-7.8 10^3/uL Lymphocytes # (Auto) 1.3 1.0-4.0 10^3/uL Monocytes # (Auto) 0.3 0.0-1.0 10^3/uL Eosinophils # (Auto) 0.1 0.0-0.3 10^3/uL Basophils # (Auto) 0.0 0.0-0.1 10^3/uL Immature Granulocyte # (Auto) 0.0 0.0-0.1 10^3/uL Prothrombin Time 14.5 12.2-14.7 SEC INR Comment 1.1 0.8-1.4 Activated Partial Thromboplast Time 29 24-35 SEC Sodium Level 140 135-145 MMOL/L Potassium Level 3.8 3.6-5.0 MMOL/L Chloride Level 104 98-107 MMOL/L Carbon Dioxide Level 23 21-32 MMOL/L Anion Gap 13 5-14 MMOL/L Blood Urea Nitrogen 21 H 7-18 MG/DL Creatinine 1.40 H 0.60-1.30 MG/DL Estimat Glomerular Filtration Rate 40 BUN/Creatinine Ratio 15 Glucose Level 171 H 70-105 MG/DL Calcium Level 9.3 8.5-10.1 MG/DL My Orders Orders - LG DOHERTY DO Ct Head Wo (03/27/22 23:11) Tibia/Fibula, Left, 2 Views (03/27/22 23:11) Basic Metabolic Panel (03/27/22 23:11) Cbc With Automated Diff (03/27/22 23:11) Protime With Inr (03/27/22 23:11) Partial Thromboplastin Time (03/27/22 23:11) Scopolamine Patch (Transderm-Scop Patch) (03/28/22 00:30) Medications Given in ED Current Medications Medications Dose Ordered Sig/Sukhi Route Start Time Stop Time Status Last Admin Dose Admin Scopolamine 1.5 mg ONCE ONCE TD 03/28/22 00:30 03/28/22 00:31 DC 03/28/22 00:33 1.5 MG Vital Signs/I&O 03/27/22 03/28/22 22:56 00:34 Temp 36.0 36.6 Pulse 85 69 Resp 16 16 B/P (MAP) 167/105 (125) 114/73 Pulse Ox 98 97 O2 Delivery Room Air Room Air Capillary Refill : Less Than 3 Seconds Blood Pressure Mean: 125 Progress Note : Progress Note UNEVENTFUL ER STAY Diagnostic Imaging Comments CT HEAD--NO ACUTE PROCESS, PER [facility] VIA FAX AT 0303 Reviewed: Reviewed by Me Departure Impression Primary Impression: Positional vertigo Additional Impressions: Fall from standing Contusion of left lower leg COUMADIN THERAPY Minor head injury without loss of consciousness Disposition: 01 HOME, SELF-CARE Condition: Stable Departure-Patient Inst. Decision time for Depature: 00:28 Referrals: CURTIS CONTEH MD (PCP) Primary Care Physician NATALIE SIERRA (Family) Primary Care Physician Patient Instructions: Vertigo (a Type of Dizziness) (DC), Minor Head Injury, Adult ED, Taking Care of Bruises Add. Discharge Instructions: SLOW POSITION CHANGES CONTINUE YOUR REGULAR MEDICATIONS PRESCRIBED FOLLOW UP WITH DR. CONTEH'S OFFICE IN 2-3 DAYS FOR FURTHER CARE, RETURN TO ER IF WORSE All discharge instructions reviewed with patient and/or family. Voiced understanding. Scripts Scopolamine (Transderm-Scop) 1 Mg/3 Day Patch.td72 1 EACH TD Q72H, #3 PATCH Prov: LG DOHERTY DO 03/28/22 LG DOHERTY DO March 27, 2022 23:18
[2022-03-27 23:34] LABS: BASOPHILS % (AUTO) 1 % (0-10); EOSINOPHILS # (AUTO) 0.1 10^3/uL (0.0-0.3); EOSINOPHILS % (AUTO) 2 % (0-10); HEMATOCRIT 39 % (35-52); HEMOGLOBIN 12.6 g/dL (11.5-16.0); LYMPHOCYTES # (AUTO) 1.3 10^3/uL (1.0-4.0); LYMPHOCYTES % (AUTO) 32 % (12-44); MEAN CORPUSCULAR HEMOGLOBIN 30 pg (25-34); MEAN CORPUSCULAR HGB CONC 33 g/dL (32-36); MEAN CORPUSCULAR VOLUME 93 fL (80-99); MEAN PLATELET VOLUME 11.1 fL (9.0-12.2); MONOCYTES # (AUTO) 0.3 10^3/uL (0.0-1.0); MONOCYTES % (AUTO) 7 % (0-12); NEUTROPHILS # (AUTO) 2.4 10^3/uL (1.8-7.8); NEUTROPHILS % (AUTO) 59 % (42-75); PLATELET COUNT 197 10^3/uL (130-400); WHITE BLOOD COUNT 4.1 10^3/uL (4.3-11.0)
[2022-03-27 23:47] LABS: POTASSIUM 3.8 MMOL/L (3.6-5.0)
[2022-03-27 23:48] LABS: CALCIUM 9.3 MG/DL (8.5-10.1)
[2022-03-27 23:52] LABS: INR 1.1 (0.8-1.4); PROTHROMBIN TIME PATIENT 14.5 SEC (12.2-14.7)
[2022-03-27 23:53] LABS: CREATININE SERUM 1.4 MG/DL (0.60-1.30)
[2022-03-28] MEDS ORDERED: SCOP1PAT10 TD (00:29)
[2022-03-28] MEDS ORDERED: SCOPOLAMINE 1.5 MG (TRANSDERM-SCOP) PATCH TD ONE (00:30)
[2022-03-28 00:34] VITALS: BP 114/73
--- NOTE | 2022-03-28 05:47 | Diagnostic Imaging Report ---
PROCEDURE: CT head without contrast. TECHNIQUE: Multiple contiguous axial images were obtained through the brain without the use of intravenous contrast. Auto Exposure Controls were utilized during the CT exam to meet ALARA standards for radiation dose reduction. INDICATION: Fall, head injury, pain. COMPARISON: 10/23/2014 FINDINGS: Mild atrophy. No intracranial hemorrhage. No intracranial mass, mass effect, midline shift, herniation, hydrocephalus, or extra-axial fluid collection. No CT evidence of an acute ischemic infarction. Background vascular calcifications. The bilateral ocular lenses are absent. The visualized paranasal sinuses are clear. The calvarium and extra calvarial soft tissues are unremarkable. IMPRESSION: No acute intracranial abnormality with mild atrophy present. Agree with preliminary interpretation. Dictated by: Dictated on workstation # [id number]
--- NOTE | 2022-03-28 06:09 | Diagnostic Imaging Report ---
Indication: Left leg injury from a fall Left tibia-fibula Patient's had knee arthroplasty. The tibia and fibula shafts appear to be intact. Ankle is unremarkable. IMPRESSION: There appears be an old healed periprosthetic fracture of the distal left femur. No acute abnormality seen in the tibia or fibula. Dictated by: Dictated on workstation # [id number]
== END 2022-03-28 00:36 | disposition home or self-care (01) ==
LOC: EDUNIT# 21:32 → ER 21:34
DX: S09.90XA Unspecified injury of head, initial encounter (principal); S80.12XA Contusion of left lower leg, initial encounter; R42 Dizziness and giddiness; Z79.01 Long term (current) use of anticoagulants; Z86.718 Personal history of other venous thrombosis and embolism; Z87.81 Personal history of (healed) traumatic fracture; W18.30XA Fall on same level, unspecified, initial encounter
CPT/HCPCS: 36415; 70450; 73590; 80048; 85025; 85610; 85730

== ENCOUNTER 2022-04-05 13:11 | Outpatient (RCR) | payer MEDICARE ==
[2022-03-14 14:15] LABS: HEMATOCRIT 41 % (35-52); MEAN CORPUSCULAR HEMOGLOBIN 30 pg (25-34); MEAN CORPUSCULAR HGB CONC 32 g/dL (32-36); MEAN CORPUSCULAR VOLUME 95 fL (80-99); MEAN PLATELET VOLUME 10.5 fL (9.0-12.2); PLATELET COUNT 203 10^3/uL (130-400); WHITE BLOOD COUNT 3.9 10^3/uL (4.3-11.0)
[2022-03-14 14:46] LABS: ALBUMIN 4.4 GM/DL (3.2-4.5); BILIRUBIN,TOTAL 1.2 MG/DL (0.1-1.0); CALCIUM 9.7 MG/DL (8.5-10.1); CREATININE SERUM 1.36 MG/DL (0.60-1.30); INR 3.6 (0.8-1.4); PROTHROMBIN TIME PATIENT 36.4 SEC (12.2-14.7); TOTAL PROTEIN 7.3 GM/DL (6.4-8.2)
[2022-03-19 09:59] LABS: PROTHROMBIN TIME PATIENT 13.8 SEC (12.2-14.7)
[2022-04-05 13:47] LABS: INR 3.8 (0.8-1.4); PROTHROMBIN TIME PATIENT 37.6 SEC (12.2-14.7)
== END 2022-04-09 | disposition home or self-care (01) ==
LOC: LAB 13:11
PROVIDERS: ATTEND Physician Assistant
DX: E78.2 Mixed hyperlipidemia (principal); N18.9 Chronic kidney disease, unspecified; I25.10 Atherosclerotic heart disease of native coronary artery without angina pectoris; E03.9 Hypothyroidism, unspecified; Z86.718 Personal history of other venous thrombosis and embolism
CPT/HCPCS: 36415; 80053; 80061; 83970; 84443; 85027; 85610

== ENCOUNTER → 2022-04-05 | Outpatient (CLI) | payer MEDICARE ==
[~2022-04-05] MED LIST changes: +SCOP1PAT10 TD
--- NOTE | 2022-04-05 14:47 | Diagnostic Imaging Report ---
Exam: Nuclear medicine parathyroid study with SPECT-CT. Date: April 05, 2022. Indication: 71-year-old female, hyperparathyroidism. Comparison: CT head, maxillofacial area and cervical spine October 23, 2014. Technique: 20.9 mCi of technetium labeled sestamibi was administered. 20 minute and two-hour delayed scintigraphic images at the level of the neck and chest were obtained. SPECT-CT imaging was also obtained and provided. Findings: There is radiotracer uptake in the thyroid as well as salivary gland activity on initial imaging which is a normal radiotracer distribution. There is lack of complete fading of radiotracer activity in the thyroid gland on delayed imaging. There is no identified persistent focal radiotracer avid nodule. Impression: No nuclear medicine evidence of a parathyroid adenoma at the level of the neck or chest. Dictated by: Dictated on workstation # [id number]
== END ==
LOC: CARD 12:30
PROVIDERS: ATTEND Physician Assistant
DX: E21.3 Hyperparathyroidism, unspecified (principal)
CPT/HCPCS: 78072; A9500

== ENCOUNTER → 2022-04-10 | Outpatient (CLI) | payer MEDICARE, OTHER ==
[2022-04-10 13:55] LABS: INR 6.9 (0.8-1.4); PROTHROMBIN TIME PATIENT 60.3 SEC (12.2-14.7)
== END ==
LOC: LAB 13:07
PROVIDERS: ATTEND Physician Assistant
DX: Z86.718 Personal history of other venous thrombosis and embolism (principal)
CPT/HCPCS: 36415; 85610

== ENCOUNTER → 2022-04-12 | Outpatient (CLI) | payer MEDICARE ==
--- NOTE | 2022-04-12 15:44 | Diagnostic Imaging Report ---
PROCEDURE: US Thyroid. TECHNIQUE: Multiple real-time grayscale images were obtained of the thyroid in various projections. INDICATION: Thyroid nodules. COMPARISON: 07/13/2013. FINDINGS: Right lobe of the thyroid gland measures 6.0 x 1.9 x 2.4 cm and is diffusely heterogeneous without dominant mass identified. The left lobe measures 4.6 x 1.6 x 2.1 cm with an approximately 1.1 x 0.6 x 0.4 cm hyperechoic nodule in the mid portion. This appears stable or slightly decreased in size when compared to the previous examination. There is a dominant 1.4 x 1.5 x 1.0 cm nodule at the isthmus, which appears slightly increased in conspicuity compared to previous study. IMPRESSION: Findings suggest multinodular goiter with stable or slightly decreased left lobe thyroid nodule and stable or mildly increased isthmus nodule as described above. Follow-up study in 12 months could be performed to document ongoing stability, particularly at the level of the isthmus. Dictated by: Dictated on workstation # [id number]
== END ==
LOC: RAD 13:00
PROVIDERS: ATTEND Physician Assistant
DX: E04.2 Nontoxic multinodular goiter (principal); E03.9 Hypothyroidism, unspecified
CPT/HCPCS: 76536

== ENCOUNTER → 2022-04-19 | Outpatient (CLI) | payer MEDICARE ==
[2022-04-19 12:01] LABS: BASOPHILS % (AUTO) 1 % (0-10); EOSINOPHILS % (AUTO) 1 % (0-10); HEMATOCRIT 38 % (35-52); HEMOGLOBIN 12.4 g/dL (11.5-16.0); LYMPHOCYTES # (AUTO) 0.7 10^3/uL (1.0-4.0); LYMPHOCYTES % (AUTO) 18 % (12-44); MEAN CORPUSCULAR HEMOGLOBIN 31 pg (25-34); MEAN CORPUSCULAR HGB CONC 33 g/dL (32-36); MEAN CORPUSCULAR VOLUME 94 fL (80-99); MEAN PLATELET VOLUME 10.8 fL (9.0-12.2); MONOCYTES # (AUTO) 0.3 10^3/uL (0.0-1.0); MONOCYTES % (AUTO) 9 % (0-12); NEUTROPHILS # (AUTO) 2.7 10^3/uL (1.8-7.8); NEUTROPHILS % (AUTO) 72 % (42-75); PLATELET COUNT 192 10^3/uL (130-400); WHITE BLOOD COUNT 3.7 10^3/uL (4.3-11.0)
[2022-04-19 12:10] LABS: ALBUMIN 4.3 GM/DL (3.2-4.5)
[2022-04-19 12:11] LABS: CALCIUM 9.2 MG/DL (8.5-10.1)
[2022-04-19 12:12] LABS: TOTAL PROTEIN 7.1 GM/DL (6.4-8.2)
[2022-04-19 12:14] LABS: BILIRUBIN,TOTAL 0.8 MG/DL (0.1-1.0)
[2022-04-19 12:15] LABS: PHOSPHORUS 3.1 MG/DL (2.3-4.7); PROTHROMBIN TIME PATIENT 39.4 SEC (12.2-14.7)
[2022-04-19 12:16] LABS: CREATININE SERUM 1.28 MG/DL (0.60-1.30)
[2022-04-19 12:18] LABS: MAGNESIUM 1.9 MG/DL (1.6-2.4)
[2022-04-19 12:41] LABS: FREE T4 (FREE THYROXINE) 1.05 NG/DL (0.70-1.48)
== END ==
LOC: LAB 11:21
PROVIDERS: ATTEND Physician Assistant
DX: E21.3 Hyperparathyroidism, unspecified (principal); I65.29 Occlusion and stenosis of unspecified carotid artery; E03.9 Hypothyroidism, unspecified; I25.10 Atherosclerotic heart disease of native coronary artery without angina pectoris; N18.9 Chronic kidney disease, unspecified; E04.1 Nontoxic single thyroid nodule
CPT/HCPCS: 36415; 80053; 82306; 83735; 83970; 84100; 84439; 84443; 85025; 85610

== ENCOUNTER → 2022-04-26 | Outpatient (CLI) | payer MEDICARE ==
[2022-04-26 13:58] LABS: BASOPHILS % (AUTO) 1 % (0-10); EOSINOPHILS # (AUTO) 0.1 10^3/uL (0.0-0.3); EOSINOPHILS % (AUTO) 1 % (0-10); HEMATOCRIT 38 % (35-52); HEMOGLOBIN 12.6 g/dL (11.5-16.0); LYMPHOCYTES % (AUTO) 22 % (12-44); MEAN CORPUSCULAR HEMOGLOBIN 31 pg (25-34); MEAN CORPUSCULAR HGB CONC 33 g/dL (32-36); MEAN CORPUSCULAR VOLUME 93 fL (80-99); MEAN PLATELET VOLUME 10.8 fL (9.0-12.2); MONOCYTES # (AUTO) 0.4 10^3/uL (0.0-1.0); MONOCYTES % (AUTO) 8 % (0-12); NEUTROPHILS % (AUTO) 68 % (42-75); PLATELET COUNT 204 10^3/uL (130-400); WHITE BLOOD COUNT 4.4 10^3/uL (4.3-11.0)
[2022-04-27 05:41] LABS: ALTERNARIA MOLD RAST <0.10 kU/L (0.00-0.09); RAGWEED RAST <0.10 kU/L (0.00-0.09)
== END ==
LOC: LAB 13:21
PROVIDERS: ATTEND Internal Medicine Critical Care Medicine
DX: J44.9 Chronic obstructive pulmonary disease, unspecified (principal)
CPT/HCPCS: 36415; 85025; 86003; 86021

== ENCOUNTER → 2022-05-14 | Outpatient (CLI) | payer MEDICARE ==
[2022-05-14 11:28] LABS: ALBUMIN 4.1 GM/DL (3.2-4.5); CREATININE SERUM 1.29 MG/DL (0.60-1.30); PHOSPHORUS 3.3 MG/DL (2.3-4.7); POTASSIUM 4.2 MMOL/L (3.6-5.0)
[2022-05-14 11:51] LABS: FREE T4 (FREE THYROXINE) 0.99 NG/DL (0.70-1.48)
== END ==
LOC: LAB 10:19
PROVIDERS: ATTEND Physician Assistant
DX: E21.3 Hyperparathyroidism, unspecified (principal); E03.8 Other specified hypothyroidism; Z86.39 Personal history of other endocrine, nutritional and metabolic disease
CPT/HCPCS: 36415; 80069; 82306; 82330; 82652; 83970; 84439; 84443

== ENCOUNTER 2022-06-11 13:19 | Outpatient (RCR) | payer MEDICARE ==
[~2022-06-11 13:19] MED LIST changes: +POTA-177 PO; -POTA10TA37 PO
[2022-06-11 13:44] LABS: INR 1.7 (0.8-1.4); PROTHROMBIN TIME PATIENT 20.1 SEC (12.2-14.7)
== END 2022-07-10 | disposition home or self-care (01) ==
LOC: LAB 13:19
PROVIDERS: ATTEND Physician Assistant
DX: Z86.718 Personal history of other venous thrombosis and embolism (principal)
CPT/HCPCS: 36415; 85610

== ENCOUNTER → 2022-06-11 | Outpatient (CLI) | payer MEDICARE ==
--- NOTE | 2022-06-11 15:02 | Diagnostic Imaging Report ---
INDICATION: Postmenopausal screening COMPARISON: Baseline FINDINGS: AP Spine L1-L4: [BMD (g/cm2): 1.017] [T-Score: -1.5] [Z-Score: -0.8] [BMD Previous: na] [BMD % Change: na] LT Hip Neck: [BMD (g/cm2): 0.640] [T-Score: -2.9] [Z-Score: -1.7] LT Hip Total: [BMD (g/cm2):0.634] [T-Score:-3.0] [Z-Score: -2.1] [BMD Previous: na] [BMD % Change: na] RT Hip Neck: [BMD (g/cm2):0.676] [T-Score:-2.6] [Z-Score:-1.5] RT Hip Total: [BMD (g/cm2):0.741] [T-score:-2.1] [Z-Score:-1.3] [BMD Previous:na] [BMD % Change:na] *Indicates significant change from prior examination based on 95% confidence level. World Health Organization criteria for BMD interpretation classify patients as Normal (T-score at or above -1.0), Osteopenic (T-score between -1.0 and -2.5) or Osteoporotic (T-score at or below -2.5). LIMITATIONS AND MODIFICATION: None. FRACTURE RISK (FRAX SCORE): The ten year probability of (%): Major Osteoporotic Fracture: [25.9] Hip Fracture: [7.9] IMPRESSION: 1. Osteoporosis. 2. Baseline examination. 3. See below National Osteoporosis Foundation guidelines on when to potentially initiate pharmacologic therapy. Based on the National Osteoporosis Foundation Guidelines, pharmacologic treatment should be initiated in any of the following, unless clinical conditions suggest otherwise: * Any patient with prior fragility fracture of the hip or vertebrae. A spine fracture indicates 5X risk for subsequent spine fracture and 2X risk for subsequent hip fracture. * Osteoporosis (T-score <-2.5). * Postmenopausal women and men age 50 and older with low bone mass/osteopenia (T-score between -1.0 and -2.5) by DXA and 10-year major osteoporotic fracture greater than 20% or a 10-year probability of hip fracture greater than 3%. These fracture risks are supplied above in the FRAX score, if applicable. * Clinician judgement and/or patient preferences may indicate treatment for people with 10-year fracture probabilities above or below these levels. Dictated by: Dictated on workstation # [id number]
== END ==
LOC: RAD 12:31
PROVIDERS: ATTEND Nurse Practitioner Family
DX: Z13.820 Encounter for screening for osteoporosis (principal); M81.0 Age-related osteoporosis without current pathological fracture; N18.9 Chronic kidney disease, unspecified; E21.3 Hyperparathyroidism, unspecified; Z78.0 Asymptomatic menopausal state
CPT/HCPCS: 77080

== ENCOUNTER 2022-07-12 14:07 | Outpatient (RCR) | payer MEDICARE ==
[2022-07-12 14:19] LABS: INR 2.2 (0.8-1.4); PROTHROMBIN TIME PATIENT 25.3 SEC (12.2-14.7)
[2022-08-05] MEDS ORDERED: TRAM-42 PO (19:54)
== END 2022-08-09 | disposition home or self-care (01) ==
LOC: LAB 14:07
PROVIDERS: ATTEND Physician Assistant
DX: Z09 Encounter for follow-up examination after completed treatment for conditions other than malignant neoplasm (principal); Z86.718 Personal history of other venous thrombosis and embolism
CPT/HCPCS: 36415; 85610

== ENCOUNTER 2022-08-05 17:20 | Emergency (ER) | payer MEDICARE ==
[~2022-08-05] VITALS: Ht 167.7 cm; Wt 91.2 kg
--- NOTE | 2022-08-05 18:09 | ED Lower Extremity ---
General Chief Complaint: Lower Extremity Stated Complaint: RIGHT KNEE PAIN Nursing Triage Note: PT AMB TO TRIAGE WITH COMPLAINT OF RIGHT KNEE PAIN. STATES PAIN IS BEHIND HER KNEE AND STARTED FRIDAY. STATES HAS HX OF BLOOD CLOTS BUT TAKES WARFARIN. DENIES INJURY. Source: patient History of Present Illness Date Seen by Provider: Aug 05, 2022 Time Seen by Provider: 17:55 Initial Comments PT ARRIVES VIA POV FROM HOME, USING A CANE C/O PAIN BEHIND RIGHT KNEE SINCE Friday08/02/22 PAIN RADIATES DOWN RIGHT CALF AND UP RIGHT POSTERIOR THIGH NO PARESTHESIAS OR MOTOR DEFICITS NO SWELLING OR DISCOLORATION TO LEG PAIN IS WORST WITH TRYING TO BEND KNEE--BETTER IF SHE KEEPS KNEE STRAIGHT NO INJURY OR UNUSUAL ACTIVITY NO PRIOR PROBLEMS OR INJURIES OR SURGERIES TO THIS KNEE OR LEG NO CHEST PAIN OR SHORTNESS OF BREATH NO LOW BACK PAIN NO SWEATS NO PALPITATIONS NO DIZZINESS OR SYNCOPE PT HAS HISTORY OF EXTENSIVE 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 LAST PT/INR WAS ABOUT A MONTH AGO. NO NEW PROBLEMS WITH LEFT LEG TOOK 1 TYLENOL EARLIER TODAY, NO RELIEF HAS NOT TAKEN ANYTHING ELSE FOR PAIN PCP: DR. CONTEH ORTHOPEDIC SURGEON: DR. GLASER Allergies and Home Medications Allergies Coded Allergies: No Known Drug Allergies (Verified , 11/21/21) Patient Home Medication List Home Medication List Reviewed: Yes Albuterol Sulfate (Ventolin Hfa) 1 Puff Puff, 2 PUFF INH QID PRN for SHORTNESS OF BREATH, (Reported) Entered as Reported by: SHELLY NIX on 10/27/18 1006 Aspirin (Aspirin EC) 81 Mg Tablet., 81 MG PO DAILY, (Reported) Entered as Reported by: SHELLY NIX on 10/27/18 1006 Atorvastatin Calcium (Atorvastatin Calcium) 10 Mg Tablet, 10 MG PO HS, (Reported) Entered as Reported by: SYLVIA MCDANIELS on 02/16/16 1006 Budesonide/Formoterol Fumarate (Symbicort 160-4.5 Mcg Inhaler) 10.2 Gm Hfa.aer.ad, 2 PUFF IH BID, (Reported) Entered as Reported by: SHELLY NIX on 10/27/18 1006 Cetirizine HCl (Zyrtec) 10 Mg Tablet, 10 MG PO DAILY, (Reported) Entered as Reported by: SHELLY NIX on 10/27/18 1006 Cholecalciferol (Vitamin D3) (Vitamin D3) 25 Mcg Tablet, 25 MCG PO DAILY, (Reported) Entered as Reported by: IVELISSE WALLACE on 10/29/21 1236 Famotidine (Acid Anesthesia Attending (FAMOTIDINE)) 20 Mg Tablet, 20 MG PO BID, (Reported) Entered as Reported by: IVELISSE WALLACE on 10/29/21 1236 Furosemide (Furosemide) 20 Mg Tablet, 20 MG PO Q48H, (Reported) Entered as Reported by: IVELISSE WALLACE on 10/29/21 1236 Levothyroxine Sodium (Levothyroxine Sodium) 100 Mcg Tablet, 100 MCG PO DAILY, (Reported) Entered as Reported by: IVELISSE WALLACE on 10/29/21 1236 Montelukast Sodium (Montelukast Sodium) 10 Mg Tablet, 10 MG PO HS, (Reported) Entered as Reported by: IVELISSE WALLACE on 08/04/15 1636 Nortriptyline HCl (Nortriptyline HCl) 25 Mg Capsule, 25 MG PO HS, (Reported) Entered as Reported by: IVELISSE WALLACE on 10/29/21 1236 Downey-3/Dha/Epa/Dpa/Fish Oil (Downey-3 1,050 mg Softgel) 1 Each Capsule, 1 CAP PO DAILY, (Reported) Entered as Reported by: SHELLY NIX on 10/27/18 1006 Potassium Chloride (Potassium Chloride) 10 Meq Tab.er.prt, 10 MEQ PO Q48H, (Reported) Entered as Reported by: SHELLY NIX on 10/27/18 1006 Scopolamine (Transderm-Scop) 1 Mg/3 Day Patch.td72, 1 EACH TD Q72H Prescribed by: LG DOHERTY on 03/28/22 0029 Tramadol HCl (Ultram) 50 Mg Tablet, 50 MG PO Q4H Prescribed by: LG DOHERTY on 08/05/22 1954 Warfarin Sodium (Warfarin Sodium) 5 Mg Tablet, 2.5 MG PO 1800, (Reported) Entered as Reported by: SHELLY NIX on 10/27/18 1006 Review of Systems Constitutional: no symptoms reported Respiratory: no symptoms reported Cardiovascular: no symptoms reported Gastrointestinal: no symptoms reported Genitourinary: no symptoms reported Musculoskeletal: see HPI Skin: no symptoms reported Psychiatric/Neurological: No Symptoms Reported Past Cbaoohf-Bskmog-Dwpnwu Hx Patient Social History Tobacco Use?: No Use of E-Cig and/or Vaping dev: No Substance use?: No Alcohol Use?: Yes Alcohol Frequency: Once in a while Pt feels they are or have been: No Immunizations Up To Date Tetanus Booster (TDap): Less than 5yrs First/Initial COVID19 Vaccinat: 05/2021 Second COVID19 Vaccination Giovanny: 06/2021 Third COVID19 Vaccination Date: 05/2021 Seasonal Allergies Seasonal Allergies: Yes Past Medical History Surgery/Hospitalization HX: hernia, left knee, cabg x1, eye, cholecystectomy, hysterectomy, t/a, cad, htn, gerd, copd. LEFT FEMUR FX/ORIF/PLATES LEFT TKR Surgeries: Yes (HIATAL HERNIA, LEFT TKR, SINGLE BYPASS; CATARACTS, L femur fx) Abdominal, Adenoidectomy, Appendectomy, Cardiac, CABG, Eye Surgery, Gallbladder, Hysterectomy, Joint Replacement, Orthopedic, Tonsillectomy Respiratory: Yes (CPAP, pulmonary hypertension) Asthma, Sleep Apnea, COPD Currently Using CPAP: No Currently Using BIPAP: No Cardiac: Yes (HX BY-PASS X1 2006;DVT'S LEFT LEG; CHRONIC LEFT LEG SWELLING) Chronic Edema/Swelling, Coronary Artery Disease, Deep Vein Thrombosis, High Cholesterol, Hypertension, Valvular Heart Disease Neurological: No Reproductive Disorders: No Female Reproductive Disorders: Denies BLADE BONER History: Hysterectomy Sexually Transmitted Disease: No HIV/AIDS: No Genitourinary: Yes Kidney Infection, Bladder Infection Gastrointestinal: Yes Gastroesophageal Reflux, Hiatal Hernia Musculoskeletal: Yes Arthritis, Fractures Endocrine: Yes Hypothyroidsim HEENT: Yes Cataract Loss of Vision: Denies Cancer: Yes (hysterectomy in 1989) Cervical Did You Recieve Any Treatments: Yes What Type of Treatment Did You: Surgical Intervention HYSTERECTOMY 1989 Psychosocial: No Integumentary: No Blood Disorders: Yes (hx of blood clots in 1989 pelvic area & left calf ) Family Medical History Alzheimer's disease 19 MOTHER, , Onset:Unknown G8 BROTHER, , Onset:Unknown Diabetes mellitus G8 BROTHER, Onset:Unknown FH: CHF (congestive heart failure) 19 MOTHER, , Onset:Unknown FH: brain aneurysm 19 FATHER, , Onset:Unknown FH: brain aneurysm 19 FATHER, , Onset:Unknown Hypertension 19 FATHER, , Onset:Unknown 19 MOTHER, , Onset:Unknown G8 BROTHER, Onset:Unknown Myocardial infarction 19 FATHER, , Onset:Unknown 19 MOTHER, , Onset:Unknown Prostate cancer G8 BROTHER, Onset:Unknown TIAs 19 MOTHER, , Onset:Unknown No Pertinent Family Hx Physical Exam Vital Signs Vital Signs - First Documented 08/05/22 17:32 Pulse 81 Resp 16 B/P (MAP) 126/77 (93) Pulse Ox 97 O2 Delivery Room Air Capillary Refill : Less Than 3 Seconds Height, Weight, BMI Height: 5'7.00" Weight: 247lbs. 0.6oz. 118.426127xc; 32.00 BMI Method:Stated General Appearance: WD/WN, no apparent distress Hips: right hip normal inspection Legs: right leg normal inspection Knees: right knee other (TENDERNRESS TO POSTERIOR ASPECT OF RIGHT KNEE. NO SWELLING OR DISCOLORATION, NO MASS/FULLNESS OR CORDING. PT IS ABLE TO FULLY EXTEND AT THE KNEE, BUT HAS MUCH PAIN WITH ANY FLEXION AT KNEE. 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, no motor/sensory deficits, alert, normal mood/affect, oriented x 3 Skin: normal color, warm/dry; No ecchymosis Procedures/Interventions Splinting and Joint Reduction : Adis wrap: Yes Immobilizers: 19 inch Knee Progress/Results/Core Measures Results/Orders Lab Results Laboratory Tests Test 08/05/22 19:00 Range/Units White Blood Count 3.8 L 4.3-11.0 10^3/uL Red Blood Count 4.24 3.80-5.11 10^6/uL Hemoglobin 12.8 11.5-16.0 g/dL Hematocrit 39 35-52 % Mean Corpuscular Volume 93 80-99 fL Mean Corpuscular Hemoglobin 30 25-34 pg Mean Corpuscular Hemoglobin Concent 33 32-36 g/dL Red Cell Distribution Width 14.4 10.0-14.5 % Platelet Count 183 130-400 10^3/uL Mean Platelet Volume 10.9 9.0-12.2 fL Prothrombin Time 40.0 H 12.2-14.7 SEC INR Comment 4.1 H 0.8-1.4 Activated Partial Thromboplast Time 105 H 24-35 SEC D-Dimer 0.28 0.00-0.49 UG/ML Sodium Level 142 135-145 MMOL/L Potassium Level 4.3 3.6-5.0 MMOL/L Chloride Level 103 98-107 MMOL/L Carbon Dioxide Level 25 21-32 MMOL/L Anion Gap 14 5-14 MMOL/L Blood Urea Nitrogen 25 H 7-18 MG/DL Creatinine 1.22 0.60-1.30 MG/DL Estimat Glomerular Filtration Rate 48 BUN/Creatinine Ratio 20 Glucose Level 86 70-105 MG/DL Calcium Level 9.1 8.5-10.1 MG/DL My Orders Orders - LG DOHERTY DO Knee, Right, 3 Views (08/05/22 18:03) Basic Metabolic Panel (08/05/22 18:03) Cbc No Diff (08/05/22 18:03) Protime With Inr (08/05/22 18:03) Partial Thromboplastin Time (08/05/22 18:03) Fibrin Degradation Products (08/05/22 18:03) Ct Extremity Lower Right Wo (08/05/22 18:45) Ketorolac Injection (Toradol Injection) (08/05/22 19:00) Rx-Tramadol Hcl (Rx-Ultram) (08/05/22 19:50) Adis Bandage (08/05/22 19:50) Knee Immobilizer (08/05/22 19:50) Medications Given in ED Current Medications Medications Dose Ordered Sig/Sukhi Route Start Time Stop Time Status Last Admin Dose Admin Ketorolac Tromethamine 60 mg ONCE ONCE IM 08/05/22 19:00 08/05/22 19:01 DC 08/05/22 19:42 60 MG Vital Signs/I&O 08/05/22 17:32 Pulse 81 Resp 16 B/P (MAP) 126/77 (93) Pulse Ox 97 O2 Delivery Room Air Blood Pressure Mean: 93 Progress Progress Note : Progress Note GIVEN TORADOL WITH SIGNIFICANT RELIEF OF PAIN --KNEE IS NO LONGER TENDER TO PALPATION AND HAS IMPROVED RANGE OF MOTION AFTER TORADOL Diagnostic Imaging Comments XRAYS RIGHT KNEE--PER RADIOLOGIST REPORT AT 1847 FINDINGS: The alignment is normal. There are mild degenerative changes. There is no fracture or dislocation. The soft tissues are unremarkable. IMPRESSION: Mild three-compartment osteoarthritic change, otherwise unremarkable. CT RIGHT KNEE--PER RADIOLOGIST REPORT AT 1943 FINDINGS: No acute fracture is seen in the right knee. Alignment appears normal. There are severe degenerative changes in the patellofemoral compartment and moderate-to- severe degenerative changes in the medial and lateral compartments. There is a small right knee joint effusion. No focal muscular atrophy is seen. There is calcific atherosclerosis. The menisci and ligaments are not well evaluated by CT. IMPRESSION: 1. Tricompartmental degenerative changes in the right knee with no acute fracture seen. 2. Small right knee joint effusion. Reviewed: Reviewed by Me Departure Impression Primary Impression: Posterior right knee pain Additional Impression: Degenerative arthritis of right knee Disposition: HOME, SELF-CARE Condition: Stable Departure-Patient Inst. Decision time for Depature: 19:50 Referrals: CURTIS CONTEH MD (PCP) Primary Care Physician NATALIE SIERRA (Family) Primary Care Physician RAIZA GLASER MD Patient Instructions: How to Use an Elastic Bandage, Knee Immobilizer (DC), Knee Pain ED Add. Discharge Instructions: ADIS WRAP AND KNEE IMMOBILIZER AT ALL TIMES, USE CANE WELL ICE TO AREA AT 20 MINUTE INTERVALS CONTINUE YOUR REGULAR MEDICATION PRESCRIBED FOLLOW UP WITH DR. GLASER FOR FURTHER CARE--CALL IN THE MORNING TO SCHEDULE APPOINTMENT All discharge instructions reviewed with patient and/or family. Voiced understanding. Scripts Tramadol HCl (Ultram) 50 Mg Tablet 50 MG PO Q4H for Pain, #20 TAB Prov: LG DOHERTY DO 08/05/22 LG DOHERTY DO Aug 05, 2022 18:09
--- NOTE | 2022-08-05 18:45 | Diagnostic Imaging Report ---
INDICATION: Knee pain. FINDINGS: The alignment is normal. There are mild degenerative changes. There is no fracture or dislocation. The soft tissues are unremarkable. IMPRESSION: Mild three-compartment osteoarthritic change, otherwise unremarkable. Dictated by: Dictated on workstation # [id number]
[2022-08-05] MEDS ORDERED: KETOROLAC 60 MG/2 ML VIAL IM ONE (19:00)
[2022-08-05 19:21] LABS: POTASSIUM 4.3 MMOL/L (3.6-5.0)
[2022-08-05 19:23] LABS: CALCIUM 9.1 MG/DL (8.5-10.1)
[2022-08-05 19:25] LABS: HEMATOCRIT 39 % (35-52); HEMOGLOBIN 12.8 g/dL (11.5-16.0); MEAN CORPUSCULAR HEMOGLOBIN 30 pg (25-34); MEAN CORPUSCULAR HGB CONC 33 g/dL (32-36); MEAN CORPUSCULAR VOLUME 93 fL (80-99); MEAN PLATELET VOLUME 10.9 fL (9.0-12.2); PLATELET COUNT 183 10^3/uL (130-400); WHITE BLOOD COUNT 3.8 10^3/uL (4.3-11.0)
[2022-08-05 19:27] LABS: CREATININE SERUM 1.22 MG/DL (0.60-1.30)
[2022-08-05 19:40] LABS: FIBRIN DEGRADATION PRODUCTS 0.28 UG/ML (0.00-0.49); INR 4.1 (0.8-1.4)
--- NOTE | 2022-08-05 19:41 | Diagnostic Imaging Report ---
PROCEDURE: CT right lower extremity without contrast. TECHNIQUE: Axially acquired CT was obtained through the right lower extremity without intravenous contrast. Coronal and sagittal reformations were also performed. Auto Exposure Controls were utilized during the CT exam to meet ALARA standards for radiation dose reduction. INDICATION: Posterior right knee pain COMPARISON: Radiographs from 08/05/2022 FINDINGS: No acute fracture is seen in the right knee. Alignment appears normal. There are severe degenerative changes in the patellofemoral compartment and moderate-to- severe degenerative changes in the medial and lateral compartments. There is a small right knee joint effusion. No focal muscular atrophy is seen. There is calcific atherosclerosis. The menisci and ligaments are not well evaluated by CT. IMPRESSION: 1. Tricompartmental degenerative changes in the right knee with no acute fracture seen. 2. Small right knee joint effusion. Dictated by: Dictated on workstation # [id number]
[2022-08-05] MEDS ORDERED: TRAM-42 PO (19:54)
[2022-08-05 20:15] VITALS: BP 130/75
== END 2022-08-05 20:14 | disposition home or self-care (01) ==
LOC: EDUNIT# 17:20 → ER 17:23
DX: M17.11 Unilateral primary osteoarthritis, right knee (principal); G47.30 Sleep apnea, unspecified; Z86.718 Personal history of other venous thrombosis and embolism; Z99.89 Dependence on other enabling machines and devices; Z79.01 Long term (current) use of anticoagulants
CPT/HCPCS: 73562; 73700; 80048; 85027; 85379; 85610; 85730; L1830; 36415

== ENCOUNTER → 2022-08-16 | Outpatient (CLI) | payer MEDICARE ==
[~2022-08-16] MED LIST changes: +TRAM-42 PO
[2022-08-16 11:15] LABS: INR 1.8 (0.8-1.4)
== END ==
LOC: LABNPT 11:03
PROVIDERS: ATTEND Internal Medicine
DX: J44.9 Chronic obstructive pulmonary disease, unspecified (principal)
CPT/HCPCS: 85610

== ENCOUNTER → 2022-08-16 | Outpatient (CLI) | payer MEDICARE ==
[2022-08-16 11:01] LABS: BASOPHILS % (AUTO) 1 % (0-10); EOSINOPHILS # (AUTO) 0.1 10^3/uL (0.0-0.3); EOSINOPHILS % (AUTO) 1 % (0-10); HEMATOCRIT 40 % (35-52); HEMOGLOBIN 13.1 g/dL (11.5-16.0); LYMPHOCYTES # (AUTO) 0.9 10^3/uL (1.0-4.0); LYMPHOCYTES % (AUTO) 22 % (12-44); MEAN CORPUSCULAR HEMOGLOBIN 31 pg (25-34); MEAN CORPUSCULAR HGB CONC 33 g/dL (32-36); MEAN CORPUSCULAR VOLUME 94 fL (80-99); MEAN PLATELET VOLUME 10.9 fL (9.0-12.2); MONOCYTES # (AUTO) 0.3 10^3/uL (0.0-1.0); MONOCYTES % (AUTO) 8 % (0-12); NEUTROPHILS # (AUTO) 2.7 10^3/uL (1.8-7.8); NEUTROPHILS % (AUTO) 67 % (42-75); PLATELET COUNT 203 10^3/uL (130-400); WHITE BLOOD COUNT 4.1 10^3/uL (4.3-11.0)
[2022-08-17 05:44] LABS: ALTERNARIA MOLD RAST <0.10 kU/L (0.00-0.09); RAGWEED RAST <0.10 kU/L (0.00-0.09)
== END ==
LOC: LAB 10:17
PROVIDERS: ATTEND Internal Medicine Critical Care Medicine
DX: J44.9 Chronic obstructive pulmonary disease, unspecified (principal)
CPT/HCPCS: 36415; 85025; 86003; 86021

== ENCOUNTER → 2022-08-27 | Outpatient (CLI) | payer MEDICARE ==
[2022-08-27 13:22] LABS: INR 2.4 (0.8-1.4); PROTHROMBIN TIME PATIENT 26.7 SEC (12.2-14.7)
== END ==
LOC: LABNPT 12:59
PROVIDERS: ATTEND Internal Medicine
DX: R79.1 Abnormal coagulation profile (principal)
CPT/HCPCS: 85610

== ENCOUNTER → 2022-09-04 | Outpatient (CLI) | payer MEDICARE ==
--- NOTE | 2022-09-05 10:04 | Diagnostic Imaging Report ---
Indication: Routine screening. Comparison is made prior mammogram 09/03/2017 and 04/11/2015. 2-D and 3-D bilateral screening mammography was performed with CAD. CAD is utilized. The current study was also evaluated with a Computer Aided Detection (CAD) system. Scattered fibroglandular densities are identified bilaterally. There are scattered benign calcifications throughout both breasts. Benign nodule in the far posterior right breast is stable. There are numerous small benign nodules in the posterior left breast as well. No spiculated mass or malignant-appearing microcalcifications are seen. Axillae are unremarkable. IMPRESSION: BI-RADS Category 2 No mammographic features suspicious for malignancy are identified. ACR BI-RADS Category 2: Benign findings. Result letter will be mailed to the patient. Note: At least 10% of breast cancer is not imaged by mammography. Dictated by: Dictated on workstation # [id number]
== END ==
LOC: RAD 14:34
PROVIDERS: ATTEND Nurse Practitioner Family
DX: Z12.31 Encounter for screening mammogram for malignant neoplasm of breast (principal)
CPT/HCPCS: 77063; 77067

== ENCOUNTER 2022-10-14 06:25 | Emergency (ER) | payer MEDICARE ==
[~2022-10-14] VITALS: Ht 170.2 cm; Wt 88.9 kg
[~2022-10-14 06:25] MED LIST changes: +ALBU8.5H6 IH; -RT-ALBUINH IH
[2022-10-14] MEDS ORDERED: PANTOPRAZOLE 40 MG (PROTONIX) TAB PO ONE (06:45)
[2022-10-14] MEDS ORDERED: KETOROLAC 30 MG/ML VIAL IM ONE (06:45)
--- NOTE | 2022-10-14 06:48 | ED Upper Extremity ---
General Chief Complaint: Upper Extremity Stated Complaint: RIGHT WRIST PAIN Nursing Triage Note: STATES RIGHT ARM WEAKNESS STARTED LAST NIGHT AT 2200. STATES GRADUALLY RT HAND/WRIST PAIN THROUGHOUT THE NIGHT. PATIENT DENIES INJURY. Source: patient Exam Limitations: no limitations History of Present Illness Date Seen by Provider: Oct 14, 2022 Time Seen by Provider: 06:28 Initial Comments 71-year-old female with past medical history of previous blood clots on warfarin, hypertension, hyperlipidemia coming in due to right wrist pain. Started after she tried to open a jar around 11 PM last night, pain worsened throughout the night. Took a tramadol and later to hydrocodone which has helped somewhat with the pain, but still present. She says it is moderate to severe, throbbing, worse with movement, better with rest around her right wrist. Denies any trauma. Denies ever having pain like this before. Denies any history of gout. Otherwise denying any other acute complaints including any fever. Allergies and Home Medications Allergies Coded Allergies: No Known Drug Allergies (Verified , 11/21/21) Patient Home Medication List Home Medication List Reviewed: Yes Albuterol Sulfate (Ventolin Hfa) 1 Puff Puff, 2 PUFF INH QID PRN for SHORTNESS OF BREATH, (Reported) Entered as Reported by: SHELLY NIX on 10/27/18 1006 Aspirin (Aspirin EC) 81 Mg Tablet.dr, 81 MG PO DAILY, (Reported) Entered as Reported by: SHELLY NIX on 10/27/18 1006 Atorvastatin Calcium (Atorvastatin Calcium) 10 Mg Tablet, 10 MG PO HS, (Reported ) Entered as Reported by: SYLVIA MCDANIELS on 02/16/16 1006 Budesonide/Formoterol Fumarate (Symbicort 160-4.5 Mcg Inhaler) 10.2 Gm Hfa.aer.ad, 2 PUFF IH BID, (Reported) Entered as Reported by: SHELLY NIX on 10/27/18 1006 Cephalexin (Cephalexin) 500 Mg Tablet, 500 MG PO QID Prescribed by: EMERITA RICHARDSON on 10/14/22 0711 Cetirizine HCl (Zyrtec) 10 Mg Tablet, 10 MG PO DAILY, (Reported) Entered as Reported by: SHELLY NIX on 10/27/18 1006 Cholecalciferol (Vitamin D3) (Vitamin D3) 25 Mcg Tablet, 25 MCG PO DAILY, (Reported) Entered as Reported by: IVELISSE WALLACE on 10/29/21 1236 Doxycycline Hyclate (Doxycycline Hyclate) 100 Mg Tablet, 100 MG PO BID Prescribed by: EMERITA RICHARDSON on 10/14/22 0711 Famotidine (Acid Pants Maker (FAMOTIDINE)) 20 Mg Tablet, 20 MG PO BID, (Reported) Entered as Reported by: IVELISSE WALLACE on 10/29/21 1236 Furosemide (Furosemide) 20 Mg Tablet, 20 MG PO Q48H, (Reported) Entered as Reported by: IVELISSE WALLACE on 10/29/21 1236 Levothyroxine Sodium (Levothyroxine Sodium) 100 Mcg Tablet, 100 MCG PO DAILY, (Reported) Entered as Reported by: IVELISSE WALLACE on 10/29/21 1236 Montelukast Sodium (Montelukast Sodium) 10 Mg Tablet, 10 MG PO HS, (Reported) Entered as Reported by: IVELISSE WALLACE on 08/04/15 1636 Nortriptyline HCl (Nortriptyline HCl) 25 Mg Capsule, 25 MG PO HS, (Reported) Entered as Reported by: IVELISSE WALLACE on 10/29/21 1236 Warfield-3/Dha/Epa/Dpa/Fish Oil (Warfield-3 1,050 mg Softgel) 1 Each Capsule, 1 CAP PO DAILY, (Reported) Entered as Reported by: SHELLY NIX on 10/27/18 1006 Potassium Chloride (Potassium Chloride) 10 Meq Tab.er.prt, 10 MEQ PO Q48H, (Reported) Entered as Reported by: SHELLY NIX on 10/27/18 1006 Scopolamine (Transderm-Scop) 1 Mg/3 Day Patch.td72, 1 EACH TD Q72H Prescribed by: LG DOHERTY on 03/28/22 0029 Tramadol HCl (Ultram) 50 Mg Tablet, 50 MG PO Q4H Prescribed by: LG DOHERTY on 08/05/22 195 Warfarin Sodium (Warfarin Sodium) 5 Mg Tablet, 2.5 MG PO 1800, (Reported) Entered as Reported by: SHELLY NIX on 10/27/18 1006 Review of Systems Constitutional: No fever EENTM: no symptoms reported Respiratory: no symptoms reported Cardiovascular: no symptoms reported Gastrointestinal: no symptoms reported Genitourinary: no symptoms reported Musculoskeletal: see HPI Skin: rash Psychiatric/Neurological: No Symptoms Reported All Other Systems Reviewed Negative Unless Noted: Yes Past Szrizfz-Wanzqx-Pxqinz Hx Patient Social History Tobacco Use?: No Immunizations Up To Date Tetanus Booster (TDap): Less than 5yrs First/Initial COVID19 Vaccinat: 05/2021 Second COVID19 Vaccination Giovanny: 06/2021 Third COVID19 Vaccination Date: 05/2021 Seasonal Allergies Seasonal Allergies: Yes Past Medical History Surgery/Hospitalization HX: hernia, left knee, cabg x1, eye, cholecystectomy, hysterectomy, t/a, cad, htn, gerd, copd. LEFT FEMUR FX/ORIF/PLATES LEFT TKR Surgeries: Yes (HIATAL HERNIA, LEFT TKR, SINGLE BYPASS; CATARACTS, L femur fx) Abdominal, Adenoidectomy, Appendectomy, Cardiac, CABG, Eye Surgery, Gallbladder, Hysterectomy, Joint Replacement, Orthopedic, Tonsillectomy Respiratory: Yes (CPAP, pulmonary hypertension) Asthma, Sleep Apnea, COPD Currently Using CPAP: No Currently Using BIPAP: No Cardiac: Yes (HX BY-PASS X1 2006;DVT'S LEFT LEG; CHRONIC LEFT LEG SWELLING) Chronic Edema/Swelling, Coronary Artery Disease, Deep Vein Thrombosis, High Cholesterol, Hypertension, Valvular Heart Disease Neurological: No Reproductive Disorders: No 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 Sexually Transmitted Disease: No HIV/AIDS: No Genitourinary: Yes Kidney Infection, Bladder Infection Gastrointestinal: Yes Gastroesophageal Reflux, Hiatal Hernia Musculoskeletal: Yes Arthritis, Fractures Endocrine: Yes Hypothyroidsim HEENT: Yes Cataract Loss of Vision: Denies Cancer: Yes (hysterectomy in 1989) Cervical Did You Recieve Any Treatments: Yes What Type of Treatment Did You: Surgical Intervention Psychosocial: No Integumentary: No Blood Disorders: Yes (hx of blood clots in 1989 pelvic area & left calf ) Family Medical History Alzheimer's disease 19 MOTHER, , Onset:Unknown G8 BROTHER, , Onset:Unknown Diabetes mellitus G8 BROTHER, Onset:Unknown FH: CHF (congestive heart failure) 19 MOTHER, , Onset:Unknown FH: brain aneurysm 19 FATHER, , Onset:Unknown FH: brain aneurysm 19 FATHER, , Onset:Unknown Hypertension 19 FATHER, , Onset:Unknown 19 MOTHER, , Onset:Unknown G8 BROTHER, Onset:Unknown Myocardial infarction 19 FATHER, , Onset:Unknown 19 MOTHER, , Onset:Unknown Prostate cancer G8 BROTHER, Onset:Unknown TIAs 19 MOTHER, , Onset:Unknown No Pertinent Family Hx Physical Exam Vital Signs Vital Signs - First Documented 10/14/22 06:34 Temp 36.4 Pulse 76 Resp 18 B/P (MAP) 133/70 (91) Pulse Ox 96 O2 Delivery Room Air Capillary Refill : Less Than 3 Seconds Height, Weight, BMI Height: 5'7.00" Weight: 247lbs. 0.6oz. 118.943177qd; 30.00 BMI Method:Stated General Appearance: WD/WN, mild distress HEENT: PERRL/EOMI, normal ENT inspection, pharynx normal Neck: non-tender, full range of motion, supple, normal inspection Cardiovascular: regular rate, rhythm, no edema, no murmur Respiratory: chest non-tender, lungs clear, normal breath sounds, no respiratory distress, no accessory muscle use Gastrointestinal: normal bowel sounds, non tender, soft; No distended, No guarding, No rebound Back: normal inspection Shoulder: normal inspection Elbow/Forearm: normal inspection Wrist: Yes limited ROM (Small area of mild erythema to the dorsal aspect of the right hand and wrist with tenderness over this area, pain with range of motion of the wrist, positive Tinel's tap, positive Adina's test) Hand: normal inspection, non-tender, no evidence of injury, normal ROM Neurologic/Tendon: normal sensation, normal motor functions, normal tendon functions Neurologic/Psychiatric: no motor/sensory deficits, alert, normal mood/affect Skin: normal color, warm/dry Lymphatic: no adenopathy Progress/Results/Core Measures Results/Orders My Orders Orders - EMERITA RICHARDSON MD Wrist, Right, 3 Views Or More (10/14/22 06:43) Ketorolac Injection (Toradol Injection) (10/14/22 06:45) Pantoprazole Tablet (Protonix Tablet) (10/14/22 06:45) Medications Given in ED Current Medications Medications Dose Ordered Sig/Sukhi Route Start Time Stop Time Status Last Admin Dose Admin Ketorolac Tromethamine 15 mg ONCE ONCE IM 10/14/22 06:45 10/14/22 06:46 DC 10/14/22 07:16 15 MG Pantoprazole Sodium 40 mg ONCE ONCE PO 10/14/22 06:45 10/14/22 06:46 DC 10/14/22 07:16 40 MG Vital Signs/I&O 10/14/22 10/14/22 06:34 07:20 Temp 36.4 36.4 Pulse 76 76 Resp 18 18 B/P (MAP) 133/70 (91) 133/70 Pulse Ox 96 96 O2 Delivery Room Air Room Air Blood Pressure Mean: 91 Progress Progress Note : Progress Note 71-year-old female with above history coming in due to right wrist pain. ABCs were intact and vitals were similar presentation. Physical exam with some mild redness to the dorsal aspect of her hand. X-ray ordered and interpreted me of the right wrist showing some arthritic changes but no fracture, no large fluid collection, no obvious osteomyelitis. I also did a [id number] ultrasound showing joint spaces without any fluid collections. Septic arthritis very unlikely at this point. Given the mild erythema, later on she mentioned a dog scratch in the area which was visible to myself. We will treat her as if this is mild developing cellulitis. Diagnostic Imaging Diagonstic Imaging: Xray (right wrist) Comments NAME: CHEVY ANDERSON MED REC#: [id number] PT STATUS: REG ER : 1950 PHYSICIAN: EMERITA RICHARDSON MD ADMIT DATE: 10/14/22/ER Draft Date of Exam:10/14/22 WRIST, RIGHT, 3 VIEWS OR MORE INDICATION: Right wrist pain, onset last evening, no known injury TECHNIQUE: 3 views of the right wrist CORRELATION STUDY: None FINDINGS: There is no acute fracture or dislocation. There is rather advanced degenerative changes particularly at the base of the thumb. This includes joint space narrowing, osteophyte formation and subcortical sclerosis. Slight radial subluxation of the 1st metacarpals also noted. Also appears be mild narrowing at the radiocarpal row. Minimal spur like formation at the lunate. The visualized soft tissues appearing unremarkable. IMPRESSION: 1. Negative for acute bony abnormality of the right wrist. Advanced multi compartment degenerative changes particularly at the base of thumb. Dictated on workstation # [id number] Dict: 10/14/22721 Trans: 10/14/22724 [facility] [id number] Interpreted by: GADIEL ISLAS DO Electronically signed by: Departure Impression Primary Impression: Cellulitis Qualified Codes: L03.113 - Cellulitis of right upper limb Disposition: HOME, SELF-CARE Condition: Stable Departure-Patient Inst. Decision time for Depature: 07:20 Referrals: CURTIS CONTEH MD (PCP/Family) Primary Care Physician RAIZA VACA MD Patient Instructions: Cellulitis (Skin Infection), Adult ED Add. Discharge Instructions: There is some redness on your skin which we are concerned could be early infection which is why it is so painful. You will be on antibiotics for the next week. Please be sure to take all of them even if you improve. Continue to take your tramadol as needed. He can also ice the area as needed. If things do not improve in the next week, please follow-up with Dr. Vaca [facility] Cephalexin (Cephalexin) 500 Mg Tablet 500 MG PO QID for 7 Days, #28 TAB Prov: EMERITA RICHARDSON MD 10/14/22 Doxycycline Hyclate (Doxycycline Hyclate) 100 Mg Tablet 100 MG PO BID for 7 Days, #14 TAB 0 Refills Prov: EMERITA RICHARDSON MD 10/14/22 Work/School Note: Work Release Form Date Seen in the Emergency Department: Oct 14, 2022 Return to Work: Oct 15, 2022 Restrictions: No Restrictions EMERITA RICHARDSON MD Oct 14, 2022 06:48
[2022-10-14] MEDS ORDERED: DOXY100T2 PO (07:11)
[2022-10-14] MEDS ORDERED: CEPH500T PO (07:11)
[2022-10-14 07:20] VITALS: BP 133/70
--- NOTE | 2022-10-14 07:26 | Diagnostic Imaging Report ---
INDICATION: Right wrist pain, onset last evening, no known injury TECHNIQUE: 3 views of the right wrist CORRELATION STUDY: None FINDINGS: There is no acute fracture or dislocation. There is rather advanced degenerative changes particularly at the base of the thumb. This includes joint space narrowing, osteophyte formation and subcortical sclerosis. Slight radial subluxation of the 1st metacarpals also noted. Also appears be mild narrowing at the radiocarpal row. Minimal spur like formation at the lunate. The visualized soft tissues appearing unremarkable. IMPRESSION: 1. Negative for acute bony abnormality of the right wrist. Advanced multi compartment degenerative changes particularly at the base of thumb. Dictated by: Dictated on workstation # [id number]
== END 2022-10-14 07:20 | disposition home or self-care (01) ==
LOC: EDUNIT# 06:25 → ER 06:27
DX: L03.113 Cellulitis of right upper limb (principal); Z86.718 Personal history of other venous thrombosis and embolism; Z28.310 Unvaccinated for COVID-19; Z79.01 Long term (current) use of anticoagulants
CPT/HCPCS: 73110

== ENCOUNTER 2022-10-23 07:26 | Outpatient (CLI) | payer MEDICARE ==
[~2022-10-23] VITALS: Ht 170 cm; Wt 86.0 kg
[~2022-10-23 07:26] MED LIST changes: +DOXY100T2 PO
[2022-10-23] MEDS ORDERED: IPRA3AMP31 IH (09:13)
[2022-10-23] MEDS ORDERED: WARF3TAB56 PO (09:13)
[2022-10-23] MEDS ORDERED: BUDE10.7 IH (09:13)
[2022-10-23] MEDS ORDERED: BUPR150T24 PO (09:13)
[2022-10-23] MEDS ORDERED: ALEN10TA8 PO (09:13)
[2022-10-23] MEDS ORDERED: DOCU100C37 PO (09:13)
[2022-10-23 09:15] VITALS: BP 107/72
[2022-10-23 09:25] LABS: BASOPHILS # (AUTO) 0.1 10^3/uL (0.0-0.1); BASOPHILS % (AUTO) 1 % (0-10); EOSINOPHILS # (AUTO) 0.1 10^3/uL (0.0-0.3); EOSINOPHILS % (AUTO) 1 % (0-10); HEMATOCRIT 39 % (35-52); HEMOGLOBIN 13.1 g/dL (11.5-16.0); LYMPHOCYTES % (AUTO) 13 % (12-44); MEAN CORPUSCULAR HEMOGLOBIN 31 pg (25-34); MEAN CORPUSCULAR HGB CONC 34 g/dL (32-36); MEAN CORPUSCULAR VOLUME 91 fL (80-99); MEAN PLATELET VOLUME 10.9 fL (9.0-12.2); MONOCYTES # (AUTO) 0.6 10^3/uL (0.0-1.0); MONOCYTES % (AUTO) 7 % (0-12); NEUTROPHILS # (AUTO) 6.5 10^3/uL (1.8-7.8); NEUTROPHILS % (AUTO) 79 % (42-75); PLATELET COUNT 244 10^3/uL (130-400); WHITE BLOOD COUNT 8.3 10^3/uL (4.3-11.0)
[2022-10-23 09:38] LABS: INR 2.8 (0.8-1.4)
[2022-10-23 09:47] LABS: ALBUMIN 4.2 GM/DL (3.2-4.5); BILIRUBIN,TOTAL 0.7 MG/DL (0.1-1.0); CALCIUM 9.4 MG/DL (8.5-10.1); CREATININE SERUM 1.58 MG/DL (0.60-1.30); ERYTHROCYTE SEDIMENTATION RATE 33 MM/HR (0-30); POTASSIUM 3.5 MMOL/L (3.6-5.0); TOTAL PROTEIN 7.3 GM/DL (6.4-8.2)
--- NOTE | 2022-10-23 09:52 | Physical Therapy Pre-Op Eval ---
PT Pre-Surgical Assessment Type of Surgery Type of Surgery: will have right TKA Prior Level of Function Current Living Status: Children Locomotion (Upon Admit): Front Wheeled Walker Subjective Subjective Patient has no pain at rest but does with activity and knee flexion. Entry Into Home: Stairs With Railing Steps Into Home: 2 Patient lives with her daughter Objective swelling in right knee Motor Control Motor Control: Motor Control WNL ROM right knee has full extension and flexes to 110 degrees (with pain) Strength can't effectively test knee strength due to pain Transfers Transfers (B, C, W/C) (FIM): 6 Gait Distance: 50' Gait Assistive Device: FWW Treatment Rendered Treatment: Patient instructed in assistive device, supported ambulation. Patient instructed in and given written program of ROM and strengthening exercises to be preformed post-op. Patient instructed in movement precautions where applicable. Patient demonstrates understandings of post-operative therapy protocol including gait pattern and exercise program. Pre-operative instruction completed; await physical therapy orders after surgery. Treatment Goal Met: Yes Assessment Goals Acheived: I Ambulation w/ FWW, I Post-op Exercises Charges/GCodes Time In: 924 Time Out: 937 Total Billed Treatment Time: 13 Total Billed Treatment 1 visit EVL REILLY VELOZ PT Oct 23, 2022 09:52
[2022-10-23 10:10] LABS: BILIRUBIN,URINE NEGATIVE (NEGATIVE); CLARITY,URINE CLEAR; COLOR,URINE YELLOW; GLUCOSE, URINE (UA) NEGATIVE (NEGATIVE); KETONES,URINE NEGATIVE (NEGATIVE); LEUKOCYTE ESTERASE ,URINE NEGATIVE (NEGATIVE); NITRITE,URINE NEGATIVE (NEGATIVE); PH,URINE 5.5 (5-9); PROTEIN,URINE NEGATIVE (NEGATIVE)
[2022-10-23 10:22] LABS: BACTERIA,URINE NEGATIVE /HPF; WBC,URINE RARE /HPF
--- NOTE | 2022-10-23 11:06 | Diagnostic Imaging Report ---
EXAMINATION: Chest, 2 views. HISTORY: Preop right TKA. COMPARISON: 12/10/2017. FINDINGS: Heart size and pulmonary vasculature are normal. The lungs are clear without consolidation, pleural effusion, or pneumothorax. The osseous structures are intact. Surgical changes from median sternotomy. IMPRESSION: No acute radiographic abnormality in the chest. Dictated by: Dictated on workstation # [id number]
== END 2022-10-23 15:57 ==
LOC: PREOP 07:26
PROVIDERS: ATTEND Orthopaedic Surgery
DX: Z01.818 Encounter for other preprocedural examination (principal); M17.11 Unilateral primary osteoarthritis, right knee
CPT/HCPCS: 36415; 71046; 80053; 81000; 82308; 85025; 85610; 85652; 86850; 86900; 86901; 87081; 93005

== ENCOUNTER 2022-10-30 05:45 | Inpatient (IN) | payer MEDICARE ==
--- NOTE | 2022-10-22 07:32 | HISTORY AND PHYSICAL ---
DATE OF SERVICE: 10/30/2022 ADMISSION HISTORY AND PHYSICAL DATE OF ADMISSION: 10/30/2022. This will be inpatient admission on 10/30/2022 for right total knee arthroplasty. The patient will require regular inpatient admission due to associated comorbidities, need for physical therapy, and gait abnormalities. HISTORY OF PRESENT ILLNESS: The patient is a 71-year-old female with longstanding progressive right knee pain. She is undergoing treatment with arthroscopy and injections without relief. She ambulates with a walker due to pain in her knee. Radiographs reveal severe medial and patellofemoral arthrosis. Due to functional impairment and failure to improve with conservative measures, the patient has elected to proceed with surgical intervention. REVIEW OF SYSTEMS: No chest pain, no shortness of breath, and no dysuria. PAST MEDICAL HISTORY: Asthma, COPD, hypertension, hypothyroidism, osteoarthritis, uterine cancer, congestive heart failure, and hypothyroidism. PAST SURGICAL HISTORY: Appendectomy, adenoidectomy, coronary artery bypass, hysterectomy, bilateral knee arthroscopies, inguinal herniorrhaphy, tonsillectomy, left total knee arthroplasty, open reduction internal fixation of left periprosthetic femur fracture, right carpal tunnel release and left carpal tunnel release. FAMILY HISTORY: Significant for coronary artery disease. PRIMARY CARE PROVIDER: Dr. Connelly. MEDICATIONS: Atorvastatin, potassium, aspirin, cetirizine, furosemide, fish oil, saline nasal spray, nortriptyline, montelukast, albuterol, famotidine, docusate, albuterol inhaler, calcium, levothyroxine, warfarin, cyclobenzaprine, and tramadol. ALLERGIES: No known drug allergies. SOCIAL HISTORY: The patient is a former smoker. Denies alcohol use. PHYSICAL EXAMINATION: GENERAL: The patient is well-developed, well-nourished, in no acute distress. HEENT: Normocephalic and atraumatic. Pupils are equal, round and reactive to light. Oropharynx is clear. NECK: Supple. No lymphadenopathy. LUNGS: Clear to auscultation bilaterally. HEART: Regular rate and rhythm. ABDOMEN: Soft, nontender, and nondistended. EXTREMITIES: The right knee demonstrates varus alignment. She is tender along her medial joint line. She has pain medially with Liam's. She has patellofemoral crepitus and pain with patellar loading. Range of motion is 2/1/125. No varus or valgus laxity. Negative anterior and posterior drawer. IMPRESSION: Severe right knee osteoarthritis. PLAN: Right total knee arthroplasty. The risks, benefits, options, complications, and recovery have been discussed at length with the patient. She understands and wishes to proceed. Job ID: [id number] DocumentID: [id number] Dictated Date: 10/17/2022 09:32:30 Medicaid Eligibility Specialist Date: 10/17/2022 11:22:00 Dictated By: RAIZA GLASER MD
[2022-10-30] VITALS (14 sets, daily range): BP systolic 106–197; BP diastolic 49–89
[~2022-10-30] VITALS: Ht 170.2 cm; Wt 94.0 kg
[~2022-10-30 05:45] MED LIST changes: +ALEN10TA8 PO; +BUDE10.7 IH; +BUPR150T24 PO; +DOCU100C37 PO; +IPRA3AMP31 IH; +WARF3TAB56 PO
--- OUTSIDE RECORDS SUMMARY | 2022-10-30 05:50 | XMS REPORT | Clinical Summary ---
Author Author [facility] Organization [facility] Address Unknown Phone Unavailable Care Team Providers Care Process Analyst Name Role Phone PCP Unavailable Allergies No known active allergies Medications End Date Status Medication Sig Dispensed Refills Start Date Active aspirin 81 MG EC tablet Take 81 mg by 0 mouth daily. Active pantoprazole (PROTONIX) Take 40 mg by 0 40 MG tabletIndications: mouth every gastroesophageal reflux morning. disease Active calcium-vitamin D 500 Take 1 tablet 0 mg(1,250mg) -200 by mouth 2 unit(5mcg) per tablet (two) times a day with meals. Active docusate sodium (COLACE) Take 100 mg 0 100 MG capsule by mouth every other day as needed. Active ipratropium-albuteroL Inhale 3 mL 0 04/21/20 2 (DUO-NEB) 0.5-3 mg/3 mL via nebulizer 0 nebulizerIndications: 4 (four) chronic obstructive times a day pulmonary disease with as needed. bronchospasms Active nitroglycerin (NITROSTAT) Dissolve 1 25 tablet 1 0.4 MG SL tablet (0.4 0 tabletIndications: acute mg total) episode of anginal pain under the tongue every 5 (five) minutes as needed for chest pain. May repeat for a total of 3 doses. Active budesonide (PULMICORT) Inhale 2 mL 60 mL 11 0.5 mg/2 mL nebulizer (0.5 mg 0 solutionIndications: total) via maintenance therapy for nebulizer 2 asthma (two) times a day. Active polyethylene glycol 0.5 to 1 cap 765 g 3 01/23 (GLYCOLAX) 17 gram/dose full with 6-8 1 powderIndications: oz clear constipation liquid daily to twice a day as needed for constipation. Active omega-3 fatty acids-fish Take 1 90 capsule 3 0 oil 340-1,000 capsule 1 mgIndications: (1,000 mg hypertriglyceridemia total) by mouth daily. Active famotidine (PEPCID) 20 MG Take 1 tablet 60 tablet 2 tabletIndications: (20 mg total) 1 gastroesophageal reflux by mouth 2 disease, heartburn (two) times a day. Active potassium chloride TAKE 1 45 tablet 1 02 (KLOR-CON) 10 MEQ CR TABLET(10 1 tabletIndications: MEQ) BY MOUTH hypokalemia prevention EVERY OTHER DAY Active levothyroxine (SYNTHROID, TAKE 1 90 tablet 1 LEVOTHROID) 100 MCG TABLET(100 1 tabletIndications: MCG) BY MOUTH hypothyroidism DAILY Active dicyclomine (BENTYL) 20 TAKE 1 120 tablet 2 mg tabletIndications: TABLET(20 MG) 1 irritable bowel syndrome BY MOUTH TWICE DAILY Active cetirizine (ZYRTEC) 10 MG TAKE 1 TABLET 90 tablet 3 tabletIndications: BY MOUTH 1 Asthma, unspecified DAILY asthma severity, unspecified whether complicated, unspecified whether persistent Active furosemide (LASIX) 20 MG TAKE 1 45 tablet 3 0 tablet TABLET(20 MG) 1 BY MOUTH EVERY OTHER DAY Active atorvastatin (LIPITOR) 10 TAKE 1 90 tablet 1 MG tabletIndications: TABLET(10 MG) 1 mixed hyperlipidemia, BY MOUTH myocardial infarction EVERY NIGHT prevention, prevention of cerebrovascular accident Active apixaban (ELIQUIS) 5 mg Take 1 tablet 180 tablet 3 tabletIndications: (5 mg total) 1 History of DVT (deep vein by mouth 2 thrombosis) (two) times a day. Active nortriptyline (PAMELOR) TAKE 1 90 capsule 1 25 MG capsuleIndications: CAPSULE(25 1 Primary insomnia MG) BY MOUTH EVERY NIGHT NEEDED Active montelukast (SINGULAIR) TAKE 1 90 tablet 3 10 mg tabletIndications: TABLET(10 MG) 1 maintenance therapy for BY MOUTH asthma EVERY NIGHT Active Problems Problem Noted Date BPV (benign positional vertigo) 04/02/2021 Stage 3a chronic kidney disease 01/23/2021 Irritable bowel syndrome with constipation 1 Sensorineural hearing loss (SNHL) of both ears 11/20 Overview: Right worse than left Thyroid nodule 08/07/2020 IFG (impaired fasting glucose) 01/19/2020 Chronic idiopathic constipation 01/19/2020 Tinnitus of both ears 10/20/2019 Bilateral hearing loss 10/20/2019 Left leg pain 10/20/2019 Overview: S/p femur fracture (04-22-19) and s/p L TKA (2010) Chronic superficial gastritis without bleeding 10/08 Diverticulosis of sigmoid colon 10/08/2019 Grade II hemorrhoids 10/08/2019 Current use of lead customer service representative anticoagulation 08/10/2019 Primary insomnia 08/10/2019 Gastroesophageal reflux disease with esophagitis 11/2018 History of hiatal hernia 08/10/2019 Overview: Fundoplication surgery 2005. Hyperglycemia 08/10/2019 Bilateral carotid artery stenosis COPD with asthma Bradycardia Ischemic cardiomyopathy History of DVT (deep vein thrombosis) Overview: Recurring LE/pelvic. Mixed hyperlipidemia Hypothyroidism Pulmonary hypertension Sleep apnea Hx of CABG Coronary atherosclerosis of [place] artery Obesity (BMI 30-39.9) Encounters Care Team Description Date Type Specialty Rubio Vargas MD Medication Refill 10/26/2022 Refill Primary Care Varsha Turner LPN Medical Records 09/24/2022 Telephone Pulmonology from Last 3 Months Immunizations Name Administration Dates Next Due Hepatitis A (adult) 04/09/1996 Influenza QIV (IM) 09/09/2020 Influenza, seasonal, 10/20/2019 injectable, preservatie free (IIV3). 15 = Influenza TIV Pneumococcal Conjugate 10/20/2019 13-Valent Pneumococcal 10/23/2020 Polysaccharide 23-Valent Family History Medical History Relation Name Comments Alzheimer's disease Brother 1 Onel Prostate cancer Brother 2 Jason Diabetes Brother 3 Saúl Lumbar disc disease Brother 3 Saúl Aneurysm Father aortic and BLE Heart attack Father cause of Heart disease Father Brain cancer Maternal Grandmother Cancer Maternal Uncle 1 Cancer Maternal Uncle 2 Cancer Maternal Uncle 3 Alzheimer's disease Maternal Uncle 4 Alzheimer's disease Mother Heart disease Mother Heart disease Paternal Aunt Diabetes Paternal Uncle Diabetes Son 1 Julius Obesity Son 1 Julius No Known Problems Son 2 Pauly Relation Name Status Comments Brother 1 Onel Brother 2 Jason Alive Brother 3 Saúl Alive Daughter Nataly Alive Father Maternal Grandmother Maternal Uncle 1 Maternal Uncle 2 Maternal Uncle 3 Maternal Uncle 4 Mother Paternal Aunt Paternal Uncle Son 1 Julius Alive Son 2 Pauly Alive Social History Date Tobacco Use Types Packs/Day Years Used Quit: 10/04/2006 Smoking Tobacco: Former Cigarettes 1 42 Smokeless Tobacco: Never Tobacco Cessation: Counseling Given: Yes Comments Alcohol Use Standard Drinks/Week Not Currently 0 (1 standard drink = 0.6 o z pure alcohol) Sex Assigned at Date Recorded Female 08/30/2019 11:33 AM CDT Last Filed Vital Signs Reading Time Taken Comments Vital Sign 118/62 04/02/2021 10:33 AM CDT Blood Pressure 90 04/02/2021 10:33 AM CDT Pulse 36.5 C (97.7 F) 04/02/2021 10:33 AM CDT Temperature 16 04/02/2021 10:33 AM CDT Respiratory Rate 97% 04/02/2021 10:33 AM CDT Oxygen Saturation - - Inhaled Oxygen Concentration 103 kg (227 lb) 04/02/2021 10:33 AM CDT Weight 170.2 cm (5' 7") 04/02/2021 10:33 AM CDT Height 35.55 04/02/2021 10:33 AM CDT Body Mass Index Plan of Treatment Health Maintenance Due Date Last Done Comments Fecal Occult Blood or FIT 1950 Sigmoidoscopy 1950 Td/Tdap# 1950 COVID-19 Vaccine (#1) 05/15/1951 Zoster Vaccine# (1 of 2) 1970 Spirometry # 12/22/2020 12/22/2019 Colonoscopy 02/14/2021 02/15/2016 Colorectal Cancer 02/14/2021 Screening Depression Screening 10/23/2021 10/23/2020 PHQ-9 # Medicare Annual Wellness 10/23/2021 10/23/2020, 10/20/2019 Advance Care Planning 11/10/2021 Conversation# Social Determinants of 11/10/2021 Health# Fall Risk Assessment # 04/02/2022 04/02/2021 Influenza Vaccine (#1) 2022 09/09/2020, 10/20/2019 Mammogram Screening 11/09/2022 11/09/2020, 10/06/2019 FIT-DNA 11/20/2022 11/20/2019 Osteoporosis Screening 06/05/2025 06/05/2020 Hepatitis C Screen Completed 08/13/2019 Pneumococcal Vaccine: 65+ Completed 10/23/2020, Years 10/20/2019 Lung Cancer Screening Discontinued 02/22/2021 Results Not on filefrom Last 3 Months Insurance Type Payer Benefit Subscriber ID Effective Phone Address Plan / Dates Group MEDICARE REPLACEMENT PLAN [employer] [id number] 2019-P [address] MEDICARE resent [id number] ADVANTAGE [facility] [place] [place] [id number] [address] [facility] (Home) [place], [place] [address] Carmela Cotton Personal/F Self 1950 [address] [facility] (Home) [place], [place] [address]
--- OUTSIDE RECORDS SUMMARY | 2022-10-30 05:50 | XMS REPORT | Encounter Summary ---
Author Author [facility] Organization [facility] Address Unknown Phone Unavailable Care Team Providers Care Silk Brusher Name Role Phone PCP Unavailable Reason for Visit * Reason Comments Medication Refill Encounter Details Care Team Description Date Type Department Rubio Vargas MD [address] [place] [address] Medication Refill 10/26/2022 Refill [facility] [place] [address] [place] [address] Social History Date Tobacco Use Types Packs/Day Years Used Quit: 10/04/2006 Smoking Tobacco: Former Cigarettes 1 42 Smokeless Tobacco: Never Comments Alcohol Use Standard Drinks/Week Not Currently 0 (1 standard drink = 0.6 o z pure alcohol) Sex Assigned at Date Recorded Female 08/30/2019 11:33 AM CDT documented as of this encounter Plan of Treatment Not on filedocumented as of this encounter Visit Diagnoses Diagnosis Asthma, unspecified asthma severity, un specified whether complicated, unspecified whether persistent Chronic obstructive pulmonary disease, unspecified COPD type (HCC) COPD with asthma (HCC) documented in this encounter
--- OUTSIDE RECORDS SUMMARY | 2022-10-30 05:50 | XMS REPORT | Encounter Summary ---
Author Author [facility] Organization [facility] Address Unknown Phone Unavailable Care Team Providers Care Donor Processor Name Role Phone PCP Unavailable Reason for Visit * Reason Onset Date Comments Medical Records 09/24/2022 Encounter Details Care Team Description Date Type Department Varsha Turner LPN Medical Records 09/24/2022 Telephone [facility] [address] [address] Social History Date Tobacco Use Types Packs/Day Years Used Quit: 10/04/2006 Smoking Tobacco: Former Cigarettes 1 42 Smokeless Tobacco: Never Comments Alcohol Use Standard Drinks/Week Not Currently 0 (1 standard drink = 0.6 o z pure alcohol) Sex Assigned at Date Recorded Female 08/30/2019 11:33 AM CDT documented as of this encounter Miscellaneous Notes * Telephone Encounter - Varsha Turner LPN - 09/24/2022 1:03 PM CST Patient left message on clinic voicemail requesting pulmonary records be faxed t o new provider Dr. Fredo Madison in [place], [place] as she moved there. She requested LDCT reports be faxed as well. Provided fax# [phone]. Attempted to call back on mobile number. Informed would fax pulmonary notes/donovan rds ordered buy Dr. Smith but to reach out to PCP- Dr. Vargas as they were t he order provider on imaging. Pulmonary notes faxed to fax number provided by patient as requested. F COOK documented in this encounter Plan of Treatment Not on filedocumented as of this encounter Visit Diagnoses Not on filedocumented in this encounter
[2022-10-30] MEDS ORDERED: CEFUROXIME INJECTION 1,500 MG in NS (IVPB) 50 ML IV ONE (06:15)
[2022-10-30] MEDS ORDERED: BUPIVACAINE SPINAL 0.75% (SENSORCAINE) 2 ML AMP ONE (06:39)
[2022-10-30] MEDS ORDERED: MIDAZOLAM 2 MG/2 ML (VERSED) VIAL ONE (06:39)
[2022-10-30] MEDS ORDERED: ROPIVACAINE 5MG/ML 30ML VIAL ONE (06:40)
[2022-10-30] MEDS: LACTATED RINGERS 1,000 ML IV PRN ×2 (06:43→09:31)
[2022-10-30] MEDS ORDERED: fentaNYL INJ 100 MCG/2 ML AMP ONE (07:12)
[2022-10-30] MEDS ORDERED: diphenhydrAMINE 50 MG/ML INJ (BENADRYL) IVP PRN (07:15)
[2022-10-30] MEDS ORDERED: ONDANSETRON 4 MG/2 ML (SDV) Z0FRAN IVP PRN ×2 (07:15→09:15)
[2022-10-30] MEDS ORDERED: morphine PCA 100 MG/100 ML BAG IV PRN (07:15)
--- NOTE | 2022-10-30 07:35 | Progress Note-Pre Operative ---
Pre-Operative Progress Note Date of Available H&P: Oct 17, 2022 Date H&P Reviewed: Oct 30, 2022 Time H&P Reviewed: 07:11 Changes from last HP none Pre-Operative Diagnosis: right knee primary osteoarthritis RAIZA GLASER MD Oct 30, 2022 07:35
--- NOTE | 2022-10-30 07:35 | Progress Note-Post Operative ---
Post-Operative Progess Note Surgeon (s)/Gasoline Truck Operator (s) Surgeon RAIZA GLASER MD Gasoline Truck Operator: Lewis Nunez Pre-Operative Diagnosis right knee primary osteoarthritis Post-Operative Diagnosis right knee primary osteoarthritis Procedure & Operative Findings Date of Procedure 10/30/22 Procedure Performed/Findings right total knee arthroplasty Anesthesia Type GETA Estimated Blood Loss Estimated blood loss (mL): minimal Specimens/Packing Specimens Removed none Packing: none RAIZA GLASER MD Oct 30, 2022 07:35
--- NOTE | 2022-10-30 07:38 | D/C HH Face to Face Order ---
D/C Face to Face Orders Reconcile Patient Problems Problems Reviewed?: Yes Instructions for Patient [facility], Patient Instructions/FollowUp: three weeks Physician to follow Patient: three weeks Discharge Diet for Home: Regular Diet Patient Data-Allergies,Ht & Wt Patient Allergies: Coded Allergies: No Known Drug Allergies (Verified , 10/30/22) Height (Feet): 5 Height (Inches): 7.00 Weight (Pounds): 247 Weight (Ounces): 0.6 Home Health Need/Face to Face Date of Face to Face: Oct 30, 2022 Clinical Findings: Muscle weakness, Pain with ambulation, Unsteady gait I have seen Pt ihlh-[id number]: Yes Discharged To: Home Diagnosis/Conditions: right total knee arthroplasty Patient is Homebound due to: Muscle weakness, Pain w/ambulation Homebound Status Due to the above stated illness, injury or surgical procedure (medical condition or diagnosis) and associated clinical findings, the patient is homebound because of his/her inability to leave home except with aid of a supportive device and/or person AND leaving the home requires a considerable and taxing effort or is medically contraindicated. Pt req the following assistanc: Walker Home Health Nursing Orders Home Health Services Order: Physical Therapy-Evaluate & Treat DC right knee bashir and apply steri strips 11/13/22 Home Health Infusion Therapy Line Start Date: Oct 30, 2022 Therapy Orders Therapy Orders: Physical Therapy, PT to assess for OT Therapy Specific Orders: Eval assistive deivces, Teach enviro modifications/safety, Gait training, Increase strength/endurance, Provider ja ntenance therapy, Restore ROM Certify Stmt I certify that this patient is under my care and that I, a nurse practitioner or a physician; a video production assistant working with me, had a face to face encounter that - meets the physician face to face encounter requirements with this patient as dated. RAIZA GLASER MD Oct 30, 2022 07:38
[2022-10-30] MEDS ORDERED: NS (IVPB) 33 ML, ROPIVACAINE INJECTION 275 MG, EPINEPHrine 1 MG INJECTION 0.5 MG, morp... IU ONE ×4 (08:00)
[2022-10-30] MEDS ORDERED: ONDANSETRON 4 MG/2 ML (SDV) Z0FRAN ONE ×2 (08:37→09:20)
[2022-10-30] MEDS ORDERED: proPOfol 200 MG/20 ML (DIPRIVAN) VIAL IV ONE (08:38)
[2022-10-30] MEDS ORDERED: LIDOCAINE PF 2% 5 ML (XYLOCAINE) VIAL ONE (08:38)
[2022-10-30] MEDS ORDERED: SEVOFLURANE (ULTANE) 15 ML INHAL SOLN ONE (09:08)
[2022-10-30] MEDS ORDERED: morphine INJ 10 MG/ML 1ML (SYR OR VIAL) IVP ONE (09:15)
[2022-10-30] MEDS ORDERED: morphine INJ 10 MG/ML 1ML (SYR OR VIAL) ONE (09:15)
[2022-10-30] MEDS ORDERED: HYDROmorphone 2 MG/ML VIAL (DILAUDID) IV ONE (09:15)
--- NOTE | 2022-10-30 09:45 | Progress Note ---
Standard Progress Note Progress Notes/Assess & Plan Date Seen by a Provider: Oct 30, 2022 Time Seen by a Provider: 09:25 Progress/Assessment & Plan post op check no complaints radiographs--HW well positioned without fracture RLE--2 plus DP pulse with brisk cap refill intact DF and PF of toes and ankle intact sensation to light touch throughout s/p RTKA mobilize as able RAIZA GLASER MD Oct 30, 2022 09:45
[2022-10-30] MEDS ORDERED: HYDROmorphone 2 MG/ML VIAL (DILAUDID) ONE (09:47)
[2022-10-30] MEDS ORDERED: FLU QUAD HIGH DOSE 240 MCG/0.7 ML 2022-23 (FLUZONE) IM ONE (10:45)
[2022-10-30] MEDS: NS IV 1000 ML 1,000 ML IV SCH ×2 (10:55→23:01)
[2022-10-30] MEDS: SENNA W/DOCUSATE (SENOKOT S) TABLET PO SCH ×2 (10:58→20:02)
[2022-10-30 12:57] LABS: PROTHROMBIN TIME PATIENT 14.1 SEC (12.2-14.7)
--- NOTE | 2022-10-30 13:30 | Diagnostic Imaging Report ---
INDICATION: Postop right knee pain. FINDINGS: Two views. There is total arthroplasty. Components are in good alignment. Skin bashir are present. There are no bony fractures. IMPRESSION: Satisfactory appearing TKA, right knee. Dictated by: Dictated on workstation # [id number]
--- NOTE | 2022-10-30 14:59 | Physical Therapy Evaluation ---
PT Evaluation-General Medical Diagnosis Admission Date Oct 30, 2022 at 05:45 Medical Diagnosis: right TKA Onset Date: Oct 30, 2022 Therapy Diagnosis Therapy Diagnosis: impaired mobility, ROM Height/Weight Height (Feet): 5 Height (Inches): 7.00 Weight (Pounds): 247 Weight (Ounces): 0.6 Precautions Precautions/Isolations: Fall Prevention, Standard Precautions Weight Bear Status Right Lower Extremity: Right Weight Bearing/Tolerated Referral Physician: Enrique Reason for Referral: Evaluation/Treatment Medical History Pertinent Medical History: Arthritis, CABG, CAD, HTN, Hypothroidism Additional Medical History PAST MEDICAL HISTORY: Asthma, COPD, hypertension, hypothyroidism, osteoarthritis, uterine cancer, congestive heart failure, and hypothyroidism. PAST SURGICAL HISTORY: Appendectomy, adenoidectomy, coronary artery bypass, hysterectomy, bilateral knee arthroscopies, inguinal herniorrhaphy, tonsillectomy, left total knee arthroplasty, open reduction internal fixation of left periprosthetic femur fracture, right carpal tunnel release and left carpal tunnel release. Reviewed History: Yes Social History Home: Single Level Current Living Status: Children Entry Into Home: Stairs With Railing PT Steps Into Home: 2 Prior Prior Level of Function SCALE: Activities may be completed with or without assistive devices. 0-Esqhbkngza-pvnzfii completes the activity by him/herself with no assistance from a helper. 5-Set-up or Clean-up Assistance-helper sets up or cleans up; patient completes activity. [place] assists only prior to or following the activity. 4-Supervision or Touching Assistance-helper provides verbal cues and/or touching/steadying and/or contact guard assistance as patient completes activity. Assistance may be provided throughout the activity or intermittently. 3-Partial/Moderate Assistance-helper does LESS THAN HALF the effort. [place] lifts, holds or supports trunk or limbs, but provides less than half the effort. 2-Substantial/Maximal Assistance-helper does MORE THAN HALF the effort. [place] lifts or holds trunk or limbs and provides more than half the effort. 4-Poxzlibxm-dorpji does ALL the effort. Patient does none of the effort to complete the activity. Or, the assistance of 2 or more helpers is required for the patient to complete the activity. If activity was not attempted, code reason: 7-Patient Refused. 9-Not Applicable-not attempted and the patient did not perform the activity before the current illness, exacerbation or injury. 10-Not Attempted due to Environmental Limitations-(lack of equipment, weather restraints, etc.). 88-Not Attempted due to Medical Conditions or Safety Concerns. Bed Mobility: 6 Transfers (B,C,W/C): 6 Gait: 6 Stairs: 6 Indoor Mobility (Ambulation): Independent Stairs: Independent PT Evaluation-Current Subjective Patient in bed pre tx, agrees to PT, has 7/10 pain in right knee Pt/Family Goals to be independent at home Objective Patient Orientation: Person, Place, Situation Attachments: IV ROM/Strength ROM Lower Extremities right knee extension +2 degrees, flexion 70 degrees Sensory Vision: Functional Hearing: Functional Sensation Right Lower Extremit: Intact Sensation Left Lower Extremity: Intact Transfers Roll Left to Right (QC): 6 Sit to Lying (QC): 4 Lying to Sitting/Side of Bed(Q: 4 Sit to Stand (QC): 3 Chair/Eel-ln-Bjgai Xfer(QC): 4 Gait Does the Patient Walk?: Yes Mode of Locomotion: Walk Anticipated Mode of Locomotion: Walk Walk 10 feet (QC): 4 Distance: 10'x2 Gait Assistive Device: FWW Comments/Gait Description Patient ambulated to the restroom and back to her bed, gait was antalgic, slow, poor step through. Balance Sitting Static: Normal Sitting Dynamic: Normal Standing Static: Fair Standing Dynamic: Fair Treatment RLE total knee protocol x10 (AP, QS, HS, SAQ, SLR) Assessment/Needs Patient in bed post tx with nurse call, phone, tray, all needs met. Patient has impaired mobility and ROM, needs min assist for sit to stand. Rehab Potential: Fair PT Skilled Nursing Goals String Studies Director Goals PT String Studies Director Goals Time Frame: Nov 06, 2022 Roll Left & Right (QC): 6 Sit to Lying (QC): 6 Lying-Sitting on Side/Bed(QC): 6 Sit to Stand (QC): 4 (SBA) Chair/Djo-ff-Pgwpj Xfer(QC): 4 (SBA) Walk 10 feet (QC): 4 (SBA) Walk 50ft with 2 Turns (QC): 4 (SBA) Walk 150 ft (QC): 4 (SBA) 1 Step (curb) (QC): 4 (CGA) 4 Steps (QC): 4 (CGA) PT Plan Problem List Problem List: Activity Tolerance, Functional Strength, Safety, Balance, Gait, Transfer, Bed Mobility, ROM Treatment/Plan Treatment Plan: Continue Plan of Care Treatment Plan: Bed Mobility, Education, Functional Activity Chan, Functional Strength, Gait, Safety, Therapeutic Exercise, Transfers Treatment Duration: Nov 06, 2022 Frequency: 11 times per week Estimated Hrs Per Day: .25 hour per day Patient and/or Family Agrees t: Yes Safety Risks/Education Patient Education: Gait Training, Transfer Techniques, Correct Positioning, Safety Issues Teaching Recipient: Patient Teaching Methods: Demonstration, Discussion Response to Teaching: Reinforcement Needed Discharge Recommendations Plan Patient will perform bed mobility and transfer training balance and endurance training, functional strengthening, gait training, stair training, and education, to improve functional mobility and independence at home. Therapy Discharge Recommendati: Home & Family, Post Acute PT Time Time In: 1416 Time Out: 1438 DATE: Oct 30, 2022 Total Billed Treatment Time: 22 Total Billed Treatment 1 visit REILLY COLEY PT Oct 30, 2022 14:59
[2022-10-30] MEDS ORDERED: TRAM50TA3 PO (15:41)
[2022-10-30] MEDS ORDERED: CYCL10TA25 PO (15:41)
[2022-10-30] MEDS ORDERED: POTA10CA43 PO (15:41)
--- NOTE | 2022-10-30 15:50 | Consultation - Hospitalist ---
HPI History of Present Illness: HPI/Chief Complaint Carmela Cotton is a 71 year old female with PMH HTN, HLD, hypothyroidism, asthma, history of DVT, osteoarthritis, who presented for a scheduled right total knee arthroplasty. She has been holding her coumadin for the past week. She is having some pain post-operatively. She is not short of breath. She has no other complaints. Source: patient Exam Limitations: no limitations Date Seen 10/30/22 Attending Physician Saúl Connelly MD PCP Admitting Physician: Julius Vaca MD Attending Physician: Julius Vaca MD Referring Physician Date of Admission Oct 30, 2022 at 05:45 Home Medications & Allergies Home Medications Reviewed patient Home Medication Reconciliation performed by pharmacy medication reconciliations water filtration technician and/or nursing. Patients Allergies have been reviewed. Allergies Allergies Coded Allergies No Known Drug Allergies (Shdafyvl51/21/22) Past Yvfknfl-Btzoag-Bqeycr Hx Patient Social History Tobacco Use?: No Smoking Status: Former Smoker Substance use?: No Alcohol Use?: Yes Alcohol type: Wine Alcohol Frequency: Rarely Immunizations Up To Date Date of Influenza Vaccine: Sep 01, 2020 First/Initial COVID19 Vaccinat: 2020 Second COVID19 Vaccination Giovanny: 2020 Date of Pneumonia Vaccine: Sep 01, 2012 Seasonal Allergies Seasonal Allergies: Yes Current Status Advance Directives: No Communicates: Signs Primary Language: Angolan Preferred Spoken Language: Angolan Is interpretation needed?: No Implanted or Applied Medical D: CPAP Past Medical History Surgeries: Abdominal, Adenoidectomy, Appendectomy, Cardiac, CABG, Eye Surgery, Gallbladder, Hysterectomy, Joint Replacement, Orthopedic, Tonsillectomy Asthma, Sleep Apnea, COPD Currently Using CPAP: Yes Currently Using BIPAP: No Chronic Edema/Swelling, Coronary Artery Disease, Deep Vein Thrombosis, High Cholesterol, Hypertension, Valvular Heart Disease 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 Sexually Transmitted Disease: No HIV/AIDS: No Kidney Infection, Bladder Infection Gastroesophageal Reflux, Hiatal Hernia Arthritis, Fractures Hypothyroidsim Cataract Loss of Vision: Denies Cervical Did You Recieve Any Treatments: Yes What Type of Treatment Did You: Surgical Intervention Blood Disorders: Yes (hx of blood clots in 1990 pelvic area & left calf ) Family Medical History Alzheimer's disease 19 MOTHER, , Onset:Unknown G8 BROTHER, , Onset:Unknown Diabetes mellitus G8 BROTHER, Onset:Unknown FH: CHF (congestive heart failure) 19 MOTHER, , Onset:Unknown FH: brain aneurysm 19 FATHER, , Onset:Unknown FH: brain aneurysm 19 FATHER, , Onset:Unknown Hypertension 19 FATHER, , Onset:Unknown 19 MOTHER, , Onset:Unknown G8 BROTHER, Onset:Unknown Myocardial infarction 19 FATHER, , Onset:Unknown 19 MOTHER, , Onset:Unknown Prostate cancer G8 BROTHER, Onset:Unknown TIAs 19 MOTHER, , Onset:Unknown No Pertinent Family Hx Review of Systems Constitutional: no symptoms reported Respiratory: no symptoms reported Cardiovascular: no symptoms reported Physical Exam Physical Exam Vital Signs Vital Signs - First Documented Capillary Refill : Height, Weight, BMI Height: 5'7.00" Weight: 247lbs. 0.6oz. 118.079400qu; 32.44 BMI Method:Stated General Appearance: No Apparent Distress, Obese HEENT: PERRL/EOMI, Pharynx Normal Respiratory: Lungs Clear, No Respiratory Distress Cardiovascular: Regular Rate, Rhythm, No Murmur Gastrointestinal: Normal Bowel Sounds, Soft Extremity: Normal Inspection, No Pedal Edema Neurologic/Psychiatric: Alert, Normal Mood/Affect Skin: Normal Color, Warm/Dry Results Results/Procedures Labs Patient resulted labs reviewed. 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 Bowel regimen Incentive spirometry PT/OT History of DVT Coumadin held lakshmi-operatively Lovenox ordered Resume therapeutic anticoagulation when ok with Ortho HTN HLD Hypothyroidism CHF Asthma Continue home meds as able Diagnosis/Problems Diagnosis/Problems (1) S/P total knee arthroplasty Status: Acute Qualifiers: Laterality: right Qualified Codes: Z96.651 - Presence of right artificial knee joint (2) Osteoarthritis of right knee Status: Chronic (3) History of DVT (deep vein thrombosis) Status: Chronic (4) Obesity Status: Chronic (5) HTN (hypertension) Status: Chronic (6) HLD (hyperlipidemia) Status: Chronic (7) Asthma Status: Chronic (8) Hypothyroidism Status: Chronic KARLIE RAMSEY MD Oct 30, 2022 15:50
[2022-10-30] MEDS ORDERED: RX-CYCLOBENZAPRINE 10 MG (FLEXERIL) TAB PPK#3 PO PRN (16:00)
[2022-10-30] MEDS: CEFUROXIME INJECTION 750 MG in NS (IVPB) 50 ML IV SCH ×2 (16:40→23:19)
--- NOTE | 2022-10-30 19:53 | OPERATIVE REPORT ---
DATE OF SERVICE: 10/30/2022 PREOPERATIVE DIAGNOSIS: Right knee primary osteoarthritis. POSTOPERATIVE DIAGNOSIS: Right knee primary osteoarthritis. PROCEDURE: Right total knee arthroplasty. SURGEON: Julius Glaser MD COMMERCIAL CARPET INSTALLER: Lewis Nunez, who assisted throughout the procedure and closed the incision. ANESTHESIA: General endotracheal. ANESTHESIOLOGIST: Kay Cleveland CRNA. TOURNIQUET TIME: Approximately 55 minutes at 300 mmHg. ESTIMATED BLOOD LOSS: Minimal. DRAINS: None. COMPLICATIONS: None. POSTOPERATIVE PLAN: Routine total knee arthroplasty protocol. The patient was transported to the recovery room awake and in stable condition. MATERIALS: MicroPort cemented size 3 femur, cemented size 3 tibia with a 10 mm insert and a cemented size 29 patellar button. STATEMENT OF MEDICAL NECESSITY: The patient is a 71-year-old female with progressively worsening right knee pain. Radiographs revealed severe medial and patellofemoral arthrosis. She tried injections, anti-inflammatories and rest without relief. Due to functional impairment and failure to improve with conservative measures, the patient elected to proceed with surgical intervention. DESCRIPTION OF PROCEDURE: After risks and benefits of the procedure were discussed and questions were answered and informed consent was signed and placed on the chart, the operative site was confirmed in the preoperative holding area and initialed by the surgeon. The patient was then transported to the operating room and after adequate levels of general endotracheal anesthetic were obtained, a timeout was called confirming the operative site. Right lower extremity was prepped and draped in the usual sterile fashion. With the leg elevated and the knee flexed, tourniquet was inflated to 300 mmHg. Standard anterior approach was utilized. Hemostasis was obtained with cautery. Medial parapatellar arthrotomy was performed, leaving a 1 cm cuff on the patella for later reattachment. A portion of the fat pad was resected. Subperiosteal release was performed on medial tibia, being careful to stay on the bony surface. The ACL was resected. Intramedullary guide was passed into the femur. The distal cutting block was placed. Distal cut was made. The femur sized to a size 3. The 3 cutting block was placed parallel to the epicondylar axis and cuts were made from posterior to anterior. Subperiosteal release was then carefully performed on posterior distal femur, being careful to stay on the bony surface. The patella was then prepared. The intramedullary guide was passed into the tibial canal. The drop varsha transected the axis from the cutting block. The cut was made and the 3 baseplate was prepared with the drill and keel punch. The femoral trial was placed. The trochlear cut was made and the patella was then prepared by resecting 10 mm off the undersurface. Using the freehand technique, the peg guidewire was placed and the peg holes were drilled. A 10 mm insert was placed on the tibia with a 29 patella button trial. The knee was taken through range of motion. Full extension was easily obtained, 120 degrees of flexion with gravity was easily obtained. There was no anterior/posterior or medial/lateral laxity in flexion or extension. The trials were removed. The joint was irrigated with pulse lavage. Periarticular block was placed in the posterior capsule, medial and lateral retinaculum, extensor mechanism, and subcutaneous tissues. The bone ends were irrigated and dried and the tibial baseplate was cemented into position. Excessive cement was removed. The superior surface was irrigated and dried and the tibial baseplate was cemented into position. Excessive cement was removed. Superior surface was irrigated and dried and the tibial insert was placed. The distal femur was irrigated and dried and the femoral prosthesis was cemented into position. Excessive cement was removed. The knee was brought out into full extension until the cement had cured. The undersurface of the patella was irrigated and dried and the patellar button was cemented into position. Excessive cement was removed. Once the cement had cured, the knee was taken through range of motion. Full extension was easily obtained, 120 degrees of flexion with gravity was easily obtained. There was no anterior/posterior or medial/lateral collateral laxity in flexion or extension. The patella tracked well. The joint was further irrigated with pulse lavage. The arthrotomy was closed with #2 Tevdek in rrbzsj-ew-ozwti interrupted fashion. The knee was flexed and the repair was stable. The patella tracked well. Subcutaneous tissues were irrigated using a total of 6 liters throughout the procedure. The deep subcutaneous layer was closed with 0 Vicryl, superficial subcutaneous tissue with 2-0 Vicryl and bashir used on the skin. Soft dressing was applied. The tourniquet was deflated and the patient was transferred to the recovery room awake and in stable condition. Job ID: [id number] DocumentID: [id number] Dictated Date: 10/30/2022 09:05:42 Agricultural Appraiser Date: 10/30/2022 19:51:00 Dictated By: JULIUS GLASER MD
[2022-10-30] MEDS: AtorvaSTATin TABLET 10 MG TABLET PO SCH (20:01)
[2022-10-30] MEDS: MONTELUKAST 10 MG (SINGULAIR) TAB PO SCH (20:01)
[2022-10-30] MEDS: FAMOTIDINE 20 MG (PEPCID) TABLET PO SCH (20:01)
[2022-10-30] MEDS: NORTRIPTYLINE 25 MG (PAMELOR) CAP PO SCH (20:13)
[2022-10-30] MEDS: oxyCODONE/APAP 5/325MG (PERCOCET 5) TABLET PO PRN (23:24)
[2022-10-31] VITALS (8 sets, daily range): BP systolic 145–209; BP diastolic 63–84
[2022-10-31] MEDS: NS IV 1000 ML 1,000 ML IV SCH ×2 (00:23→13:41)
[2022-10-31] MEDS: oxyCODONE/APAP 5/325MG (PERCOCET 5) TABLET PO PRN ×5 (04:47→20:19)
[2022-10-31] MEDS: LEVOTHYROXINE 100 MCG (LEVOTHROID) TAB PO SCH (05:51)
[2022-10-31 06:05] LABS: HEMOGLOBIN 9.7 g/dL (11.5-16.0)
[2022-10-31] MEDS ORDERED: ENOXAPARIN INJECTION 30 MG/0.3 ML SYR SC SCH (08:00)
[2022-10-31] MEDS: hydrALAZINE (APESOLINE) 20 MG/ML VIAL IV PRN ×2 (08:04→16:55)
--- NOTE | 2022-10-31 08:07 | Progress Note ---
Standard Progress Note Progress Notes/Assess & Plan Date Seen by a Provider: Oct 31, 2022 Time Seen by a Provider: 08:06 Progress/Assessment & Plan post op check no complaints radiographs--HW well positioned without fracture RLE--2 plus DP pulse with brisk cap refill intact DF and PF of toes and ankle intact sensation to light touch throughout s/p RTKA mobilize as able Final Diagnosis no complaints Vital Signs Date Time Temp Pulse Resp B/P (MAP) Pulse Ox O2 Delivery O2 Flow Rate FiO2 10/31/22 07:15 36.5 73 18 189/79 (115) 99 NIV CPAP 10/31/22 06:59 98 Room Air 0.00 10/31/22 03:49 36.8 88 20 157/74 (101) 100 NIV CPAP 10/30/22 23:25 35.9 75 18 150/74 (99) 99 NIV CPAP 10/30/22 20:10 Room Air 10/30/22 19:55 36.0 70 20 124/72 (89) 98 Room Air 10/30/22 16:06 36.0 70 16 123/69 (87) 98 Room Air 10/30/22 13:08 98 Room Air 10/30/22 11:27 36.2 84 18 197/80 (119) 99 Nasal Cannula 1.00 10/30/22 11:26 36.2 84 18 197/80 (119) 99 Nasal Cannula 1.00 10/30/22 11:20 36.2 18 10/30/22 11:00 98 Room Air 10/30/22 10:49 16 10/30/22 10:19 35.7 84 16 191/74 (113) 98 Nasal Cannula 1.00 10/30/22 10:01 Room Air 10/30/22 10:00 36.4 59 161/59 (93) 98 Room Air 10/30/22 09:50 20 181/70 (107) 100 OxyMask 2.00 10/30/22 09:45 OxyMask 2.00 10/30/22 09:40 15 175/68 (103) 100 OxyMask 2.00 10/30/22 09:30 14 157/89 (111) 100 OxyMask 2.00 10/30/22 09:30 OxyMask 2.00 10/30/22 09:20 14 153/72 (99) 100 OxyMask 4.00 10/30/22 09:15 OxyMask 6.00 10/30/22 09:10 16 141/66 (91) 99 OxyMask 6.00 10/30/22 09:01 36.5 20 121/49 (73) 98 OxyMask 8.00 10/30/22 09:01 OxyMask 8.00 I & O 10/31/22 07:00 Intake Total 3680 ml Output Total 0 ml Balance 3680 ml Laboratory Tests Test 10/30/22 12:30 10/31/22 05:15 Range/Units Prothrombin Time 14.1 12.2-14.7 SEC INR Comment 1.0 0.8-1.4 Hemoglobin 9.7 L 11.5-16.0 g/dL Hematocrit 30 L 35-52 % RLE--NVI no calf tenderness dressing intact s/p RTKA PT/OT RAIZA GLASER MD Oct 31, 2022 08:07
[2022-10-31] MEDS: LORATADINE (CLARITIN) 10 MG TAB PO SCH (08:54)
[2022-10-31] MEDS: SENNA W/DOCUSATE (SENOKOT S) TABLET PO SCH ×2 (08:54→20:18)
[2022-10-31] MEDS: FAMOTIDINE 20 MG (PEPCID) TABLET PO SCH ×2 (08:54→20:18)
[2022-10-31] MEDS: buPROPion SR 150 MG (WELLBUTRIN SR) TAB PO SCH (08:54)
[2022-10-31] MEDS: ASPIRIN E.C. 81 MG (ECOTRIN) TAB PO SCH (08:54)
[2022-10-31] MEDS ORDERED: NON-FORMULARY MEDICATION 1 EA EA (Cetirizine HCl (Zyrtec) 10 MG) PO SCH (09:00)
[2022-10-31] MEDS ORDERED: NON-FORMULARY MEDICATION 1 EA EA (Bupropion HCl (Bupropion Xl) 150 MG) PO SCH (09:00)
[2022-10-31] MEDS ORDERED: NON-FORMULARY MEDICATION 1 EA EA (Alendronate Sodium 10 MG) PO SCH (09:00)
--- NOTE | 2022-10-31 09:11 | Anesthesia-General Post-Op ---
General Patient Condition Mental Status/LOC: Same as Preop Cardiovascular: Satisfactory Nausea/Vomiting: Absent Respiratory: Satisfactory Pain: Controlled Complications: Absent Post Op Complications Complications None Follow Up Care/Instructions Patient Instructions None needed. Anesthesia/Patient Condition Patient Condition Patient is doing well, no complaints, stable vital signs, no apparent adverse anesthesia problems. No complications reported per nursing. CHRISTIANO COELHO CRNA Oct 31, 2022 09:11
--- NOTE | 2022-10-31 09:30 | Physical Therapy Daily Note ---
PT Daily Note-Current Subjective Pt reclined in bed upon arrival to room, agreeable to PT treatment at this time. Reports she has pain 15/10, in the anterior and posterior of the R knee. Pain Section J - Health Conditions 1. Rarely or not at all 2. Occasionally 3. Frequently 4. Almost constantly 8. Unable to answer Pain Effect on Sleep: 4 Pain Interference with Therapy: 4 Pain Interference w/Day-to-Day: 4 Appearance Following session, pt reclined in bed, with phone, call light and tray table within reach. All needs met Mental Status Patient Orientation: Person, Place, Situation Attachments: SCD's, Polar Pack, IV Transfers SCALE: Activities may be completed with or without assistive devices. 8-Xpcjbkzjgn-ltcpfko completes the activity by him/herself with no assistance from a helper. 5-Set-up or Clean-up Assistance-helper sets up or cleans up; patient completes activity. [place] assists only prior to or following the activity. 4-Supervision or Touching Assistance-helper provides verbal cues and/or touching/steadying and/or contact guard assistance as patient completes activity. Assistance may be provided throughout the activity or intermittently. 3-Partial/Moderate Assistance-helper does LESS THAN HALF the effort. [place] lifts, holds or supports trunk or limbs, but provides less than half the effort. 2-Substantial/Maximal Assistance-helper does MORE THAN HALF the effort. [place] lifts or holds trunk or limbs and provides more than half the effort. 5-Lsxlolead-ivthho does ALL the effort. Patient does none of the effort to com plete the activity. Or, the assistance of 2 or more helpers is required for the patient to complete the activity. If activity was not attempted, code reason: 7-Patient Refused. 9-Not Applicable-not attempted and the patient did not perform the activity before the current illness, exacerbation or injury. 10-Not Attempted due to Environmental Limitations-(lack of equipment, weather restraints, etc.). 88-Not Attempted due to Medical Conditions or Safety Concerns. Sit to Lying (QC): 3 Lying to Sitting/Side of Bed(Q: 3 Sit to Stand (QC): 3 Toilet Transfer (QC): 3 Min A needed for all bed mobility, as pt requires assistance with RLE due to pain levels. [place] [facility] uses stand pivot method, to and from bed. Poor WB through RLE Weight Bearing Right Lower Extremity: Right Weight Bearing/Tolerated Exercises Supine Ex: Ankle pumps, Quad Set, Heel Slides, Short Arc Quads Supine Reps: 20 Assessment Current Status: Fair Progress Pt very limited by pain this session, unable to fully WB through RLE to complete any ambulation or standing activities. PT Call Center Support Representative Goals Usp Goals PT Call Center Support Representative Goals Time Frame: Nov 06, 2022 Roll Left & Right (QC): 6 Sit to Lying (QC): 6 Lying-Sitting on Side/Bed(QC): 6 Sit to Stand (QC): 4 (SBA) Chair/Qag-ra-Brtho Xfer(QC): 4 (SBA) Walk 10 feet (QC): 4 (SBA) Walk 50ft with 2 Turns (QC): 4 (SBA) Walk 150 ft (QC): 4 (SBA) 1 Step (curb) (QC): 4 (CGA) 4 Steps (QC): 4 (CGA) PT Plan Problem List Problem List: Activity Tolerance, Functional Strength, Safety, Balance, Gait, Transfer, Bed Mobility, ROM Treatment/Plan Treatment Plan: Continue Plan of Care Treatment Plan: Bed Mobility, Education, Functional Activity Chan, Functional Strength, Gait, Safety, Therapeutic Exercise, Transfers Treatment Duration: Nov 06, 2022 Frequency: 11 times per week Estimated Hrs Per Day: .25 hour per day Patient and/or Family Agrees t: Yes Time Time In: 838 Time Out: 905 DATE: Oct 31, 2022 Total Billed Treatment Time: 27 Total Billed Treatment 1 visit, FA(15') Ex (12') RANDY BRIONES PT Oct 31, 2022 09:30
[2022-10-31] MEDS ORDERED: morphine INJ 10 MG/ML 1ML (SYR OR VIAL) IVP STA (10:13)
--- NOTE | 2022-10-31 11:12 | Progress Note - Hospitalist ---
Subjective HPI/CC On Admission Date Seen by Provider: Oct 31, 2022 Time Seen by Provider: 10:00 Carmela Cotton is a 71 year old female with PMH HTN, HLD, hypothyroidism, asthma, history of DVT, osteoarthritis, who presented for a scheduled right total knee arthroplasty. She has been holding her coumadin for the past week. She is having some pain post-operatively. She is not short of breath. She has no other complaints. Subjective/Events-last exam She is having leg pain. She refused therapy this morning. She says she got up yesterday. She wants to go home tomorrow. She was encouraged to participate with therapy. Objective Exam Vital Signs Vital Signs Date Time Temp Pulse Resp B/P (MAP) Pulse Ox O2 Delivery O2 Flow Rate FiO2 10/31/22 09:52 100 Room Air 0.00 10/31/22 09:15 92 145/64 (91) 10/31/22 07:15 36.5 18 Capillary Refill : General Appearance: No Apparent Distress, Obese Respiratory: Lungs Clear, No Respiratory Distress Cardiovascular: Regular Rate, Rhythm, No Murmur Gastrointestinal: Normal Bowel Sounds, Soft Extremity: No Pedal Edema, Other (right leg wrapped) Neurologic/Psychiatric: Alert, Oriented x3, No Motor/Sensory Deficits Skin: Normal Color, Warm/Dry Results/Procedures Lab Laboratory Tests 10/31/22 05:15 Patient resulted labs reviewed. 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 Bowel regimen Incentive spirometry PT/OT, encouraged to participate History of DVT Resume Coumadin Bridge with therapeutic Lovenox HTN HLD Hypothyroidism CHF Asthma Continue home meds as able Diagnosis/Problems Diagnosis/Problems (1) S/P total knee arthroplasty Status: Acute Qualifiers: Laterality: right Qualified Codes: Z96.651 - Presence of right artificial knee joint (2) Osteoarthritis of right knee Status: Chronic (3) History of DVT (deep vein thrombosis) Status: Chronic (4) Obesity Status: Chronic (5) HTN (hypertension) Status: Chronic (6) HLD (hyperlipidemia) Status: Chronic (7) Asthma Status: Chronic (8) Hypothyroidism Status: Chronic KARLIE RAMSEY MD Oct 31, 2022 11:12
[2022-10-31] MEDS ORDERED: ENOXAPARIN 100 MG/1 ML (LOVENOX) SYR SC SCH (12:00)
[2022-10-31] MEDS ORDERED: morphine INJ 4 MG/ML 1 ML (VIAL/SYRINGE) IV NR (13:00)
--- NOTE | 2022-10-31 13:41 | Occupational Therapy Eval ---
OT Evaluation-General/PLF Medical Diagnosis Admission Date Oct 30, 2022 at 05:45 Medical Diagnosis: right TKA Onset Date: Oct 30, 2022 Therapy Diagnosis Therapy Diagnosis: reduced adl status Height/Weight Height (Feet): 5 Height (Inches): 7.00 Weight (Pounds): 247 Weight (Ounces): 0.6 Precautions Precautions/Isolations: Fall Prevention, Standard Precautions Referral Physician: Enrique Referral Reason: Evaluation/Treatment Medical History Pertinent Medical History: Arthritis, CABG, CAD, HTN, Hypothroidism Current History s/p R TKA, post op day 1. Per patient, she lives with her daughter and ROSANA in a single story home. She was indep with adls and ialds prior to surgery. Pt uses a walker at baseline. Social History Home: Single Level Current Living Status: Children Entry Into Home: Stairs With Railing Steps Into Home: 2 ADL-Prior Level of Function SCALE: Activities may be completed with or without assistive devices. 6-Ffyweapawg-pflqfsj completes the activity by him/herself with no assistance from a helper. 5-Set-up or Clean-up Assistance-helper sets up or cleans up; patient completes activity. [place] assists only prior to or following the activity. 4-Supervision or Touching Assistance-helper provides verbal cues and/or touching/steadying and/or contact guard assistance as patient completes activity. Assistance may be provided throughout the activity or intermittently. 3-Partial/Moderate Assistance-helper does LESS THAN HALF the effort. [place] lifts, holds or supports trunk or limbs, but provides less than half the effort. 2-Substantial/Maximal Assistance-helper does MORE THAN HALF the effort. [place] lifts or holds trunk or limbs and provides more than half the effort. 4-Pbrhdwoxn-hvwovj does ALL the effort. Patient does none of the effort to complete the activity. Or, the assistance of 2 or more helpers is required for the patient to complete the activity. If activity was not attempted, code reason: 7-Patient Refused. 9-Not Applicable-not attempted and the patient did not perform the activity before the current illness, exacerbation or injury. 10-Not Attempted due to Environmental Limitations-(lack of equipment, weather restraints, etc.). 88-Not Attempted due to Medical Conditions or Safety Concerns. Self Care: Independent Functional Cognition: Independent DME/Equipment: Grab Bars, Shower Drive Self: Yes OT Current Status Subjective Pt reports pain in RLE as 25/10. RN requests patient not get out of bed until morphine is given. Appearance Pt left sitting upright in recliner, all needs within reach at therapy departure. Mental Status/Objective Patient Orientation: Person, Place, Situation Attachments: IV Current Glasses/Contacts: Yes Hearing Aids: No Dentures/Partials: Yes Hand Dominance: Right Upper Extremity ROM WFL Upper Extremity Strength WFL ADL-Treatment On/Off Footwear (QC): 1 Toileting Hygiene (QC): 3 Supine>sit: min-mod a. With bed slightly elevated (due to pt unable to flex knee enough from low height), pt able to stand with min a. Pt is a high fall risk as she moves impulsively and in an unsafe manner secondary to intense pain. She ambulated to/from bathroom with min a and use of walker. Very little weight bearing through RLE, encouragement to increase weight through foot. Mod a to stand from low toilet. Pt able to perform lakshmi care in sitting, but with difficulty. No clothing management performed as pt only wearing a gown. At this time, she would require assistance with task due to needing BUE support on walker. New gown donned once sitting back in recliner. Pt aware of importance of mobility but unsure if she will perform without encouragement. Education OT Patient Education: Correct positioning, Modified ADL techniques, Purpose of tx/functional activities, Reviewed precautions, Rehab process, Safety issues, Transfer techniques Teaching Recipient: Patient Teaching Methods: Demonstration, Discussion Response to Teaching: Verbalize Understanding, Return Demonstration, Reinforcement Needed OT Meat Department Manager Goals M[facility] Goals Time Frame: Nov 14, 2022 Eating (QC): 6 Oral Hygiene (QC): 5 Toileting Hygiene (QC): 4 Shower/Bathe Self (QC): 4 Upper Body Dressing (QC): 5 Lower Body Dressing (QC): 4 On/Off Footwear (QC): 4 Additional Goals: 1-Demonstrate ADL Tasks, 2-Verbalize Understanding, 3- ImproveStrength/Chan 1=Demonstrate adherence to instructed precautions during ADL tasks. 2=Patient will verbalize/demonstrate understanding of assistive devices/modifications for ADL. 3=Patient will improve strength/tolerance for activity to enable patient to perform ADL's. OT Education/Plan Problem List/Assessment Assessment: Decreased Activ Tolerance, Decreased Safety Aware, Impaired Bed Mobility, Impaired Funct Balance, Impaired I ADL's, Impaired Self-Care Skills Discharge Recommendations Plan/Recommendations: Continue POC Therapy Discharge Recommendati: Post Acute OT Treatment Plan/Plan of Care Treatment,Training & Education: Yes Patient would benefit from OT for education, treatment and training to promote independence in ADL's, mobility, safety and/or upper extremity function for ADL's. Plan of Care: ADL Retraining, Functional Mobility, Group Exercise/Act as Ind, UE Funct Exercise/Act Treatment Duration: Nov 14, 2022 Frequency: 5 times per week Estimated Hrs Per Day: .25 hour per day Rehab Potential: Fair Time Start Time: 13:04 Stop Time: 13:30 DATE: Oct 31, 2022 Total Time Billed (hr/min): 26 Billed Treatment Time 1 visit EVM (10 min) ADL (16 min) Karmen Simons OT Oct 31, 2022 13:41
--- NOTE | 2022-10-31 13:46 | Physical Therapy Daily Note ---
PT Daily Note-Current Subjective Patient in bed pre tx, agrees to PT reluctantly, has 25/10 pain in right knee. Nurse gives pain meds. Pain Section J - Health Conditions 1. Rarely or not at all 2. Occasionally 3. Frequently 4. Almost constantly 8. Unable to answer Pain Effect on Sleep: 4 Pain Interference with Therapy: 4 Pain Interference w/Day-to-Day: 4 Appearance Patient in recliner post tx with nurse call, phone, tray, all needs met. legs elevated. Mental Status Patient Orientation: Person, Place, Situation Attachments: SCD's, Polar Pack, IV Transfers SCALE: Activities may be completed with or without assistive devices. 4-Rglatwmuco-mmkexyd completes the activity by him/herself with no assistance from a helper. 5-Set-up or Clean-up Assistance-helper sets up or cleans up; patient completes activity. [place] assists only prior to or following the activity. 4-Supervision or Touching Assistance-helper provides verbal cues and/or touching/steadying and/or contact guard assistance as patient completes activity. Assistance may be provided throughout the activity or intermittently. 3-Partial/Moderate Assistance-helper does LESS THAN HALF the effort. [place] lifts, holds or supports trunk or limbs, but provides less than half the effort. 2-Substantial/Maximal Assistance-helper does MORE THAN HALF the effort. [place] lifts or holds trunk or limbs and provides more than half the effort. 7-Vzhtaiozw-vlgnhs does ALL the effort. Patient does none of the effort to complete the activity. Or, the assistance of 2 or more helpers is required for the patient to complete the activity. If activity was not attempted, code reason: 7-Patient Refused. 9-Not Applicable-not attempted and the patient did not perform the activity before the current illness, exacerbation or injury. 10-Not Attempted due to Environmental Limitations-(lack of equipment, weather restraints, etc.). 88-Not Attempted due to Medical Conditions or Safety Concerns. Roll Left & Right (QC): 3 Lying to Sitting/Side of Bed(Q: 3 Sit to Stand (QC): 3 Chair/Wau-pv-Gfbau Xfer(QC): 3 Toilet Transfer (QC): 3 Patient has a lot of pain moves impulsively and unsafely, needs a lot of cues for safety. Weight Bearing Right Lower Extremity: Right Weight Bearing/Tolerated Gait Training Does the Patient Walk?: Yes Distance: 20'x2 Walk 10 feet (QC): 4 Gait Persons Needed: 1 Gait Assistive Device: FWW Patient doesn't bear any weight on right leg, no heel strike, touches toes to the floor, patient ambulates to the restroom, uses the toilet and then ambulates back to the recliner. Exercises Supine Ex: Quad Set, Glut sets Supine Reps: 10 (done in recliner with legs elevated) Seated Therapy Exercises: Ankle pumps, Long arc quads (AAROM), Hamstring Curls (AAROM) Seated Reps: 10 Treatments bed mobility and transfers, ambulation, toileting, LE ROM Assessment Current Status: Poor Progress Patient has poor ROM and pain prevents weight bearing she needs to recover. PT Optical Scientist Goals Optical Scientist Goals PT Optical Scientist Goals Time Frame: Nov 06, 2022 Roll Left & Right (QC): 6 Sit to Lying (QC): 6 Lying-Sitting on Side/Bed(QC): 6 Sit to Stand (QC): 4 (SBA) Chair/Ecs-ic-Pwctk Xfer(QC): 4 (SBA) Walk 10 feet (QC): 4 (SBA) Walk 50ft with 2 Turns (QC): 4 (SBA) Walk 150 ft (QC): 4 (SBA) 1 Step (curb) (QC): 4 (CGA) 4 Steps (QC): 4 (CGA) PT Plan Problem List Problem List: Activity Tolerance, Functional Strength, Safety, Balance, Gait, Transfer, Bed Mobility, ROM Treatment/Plan Treatment Plan: Continue Plan of Care Treatment Plan: Bed Mobility, Education, Functional Activity Chan, Functional Strength, Gait, Safety, Therapeutic Exercise, Transfers Treatment Duration: Nov 06, 2022 Frequency: 11 times per week Estimated Hrs Per Day: .25 hour per day Patient and/or Family Agrees t: Yes Safety Risks/Education Patient Education: Gait Training, Transfer Techniques, Correct Positioning, Safety Issues Teaching Recipient: Patient Teaching Methods: Demonstration, Discussion Response to Teaching: Reinforcement Needed Time Time In: 1306 Time Out: 1328 DATE: Oct 31, 2022 Total Billed Treatment Time: 22 Total Billed Treatment 1 visit FA 22' REILLY LUTZ PT Oct 31, 2022 13:46
[2022-10-31] MEDS: ENOXAPARIN 100 MG/1 ML (LOVENOX) SYR SC SCH (16:29)
[2022-10-31] MEDS: AtorvaSTATin TABLET 10 MG TABLET PO SCH (20:18)
[2022-10-31] MEDS: NORTRIPTYLINE 25 MG (PAMELOR) CAP PO SCH (20:18)
[2022-10-31] MEDS: warFARin 3 MG (COUMADIN) TAB PO SCH (20:18)
[2022-10-31] MEDS: MONTELUKAST 10 MG (SINGULAIR) TAB PO SCH (20:18)
[2022-11-01 00:11] VITALS: BP 142/97
--- NOTE | 2022-11-01 01:55 | DISCHARGE SUMMARY ---
DIAGNOSES: 1. Right knee primary osteoarthritis. 2. Asthma. 3. Chronic obstructive pulmonary disease. 4. Hypertension. 5. Hypothyroidism. 6. Uterine cancer. 7. Congestive heart failure. 8. Hypothyroidism. PROCEDURES: Right total knee arthroplasty. SUMMARY OF HOSPITAL COURSE: The patient is a 71-year-old female who underwent a right total knee arthroplasty on the day of admission. Postoperatively, she progressed well. At the time of discharge, her wound was clean and dry. She had no calf tenderness. Negative Homans sign. She was tolerating diet well and tolerating pain with oral pain medication. CONDITION AT DISCHARGE: Good. DISCHARGE DIET: Regular. FOLLOWUP: Followup is in 3 weeks. Home physical therapy will be arranged. DISCHARGE MEDICATIONS: Home medications including warfarin and Percocet as needed for pain. ACTIVITIES: Weightbearing as tolerated with a walker. Job ID: [id number] DocumentID: [id number] Dictated Date: 10/31/2022 08:08:49 Animal Trainer Supervisor Date: 11/01/2022 01:54:00 Dictated By: RAIZA GLASER MD
[2022-11-01] MEDS: NS IV 1000 ML 1,000 ML IV SCH (02:16)
[2022-11-01 03:53] VITALS: BP 157/97
[2022-11-01] MEDS: ENOXAPARIN 100 MG/1 ML (LOVENOX) SYR SC SCH ×2 (04:01→16:15)
[2022-11-01] MEDS: LEVOTHYROXINE 100 MCG (LEVOTHROID) TAB PO SCH (05:49)
[2022-11-01 05:58] LABS: BASOPHILS % (AUTO) 0 % (0-10); EOSINOPHILS % (AUTO) 1 % (0-10); HEMATOCRIT 30 % (35-52); HEMOGLOBIN 9.8 g/dL (11.5-16.0); LYMPHOCYTES # (AUTO) 0.7 10^3/uL (1.0-4.0); LYMPHOCYTES % (AUTO) 9 % (12-44); MEAN CORPUSCULAR HEMOGLOBIN 31 pg (25-34); MEAN CORPUSCULAR HGB CONC 33 g/dL (32-36); MEAN CORPUSCULAR VOLUME 93 fL (80-99); MEAN PLATELET VOLUME 10.9 fL (9.0-12.2); MONOCYTES # (AUTO) 0.7 10^3/uL (0.0-1.0); MONOCYTES % (AUTO) 9 % (0-12); NEUTROPHILS # (AUTO) 6.3 10^3/uL (1.8-7.8); NEUTROPHILS % (AUTO) 80 % (42-75); PLATELET COUNT 205 10^3/uL (130-400); WHITE BLOOD COUNT 7.9 10^3/uL (4.3-11.0)
[2022-11-01 06:07] LABS: INR 1.3 (0.8-1.4); PROTHROMBIN TIME PATIENT 16.7 SEC (12.2-14.7)
[2022-11-01 06:12] LABS: ALBUMIN 3.4 GM/DL (3.2-4.5); POTASSIUM 4.6 MMOL/L (3.6-5.0)
[2022-11-01 06:13] LABS: CALCIUM 8.7 MG/DL (8.5-10.1)
[2022-11-01 06:14] LABS: TOTAL PROTEIN 6.1 GM/DL (6.4-8.2)
[2022-11-01 06:16] LABS: BILIRUBIN,TOTAL 1.1 MG/DL (0.1-1.0)
[2022-11-01 06:18] LABS: CREATININE SERUM 0.83 MG/DL (0.60-1.30)
--- NOTE | 2022-11-01 07:02 | Progress Note ---
Standard Progress Note Progress Notes/Assess & Plan Date Seen by a Provider: Nov 01, 2022 Time Seen by a Provider: 07:01 Progress/Assessment & Plan post op check no complaints radiographs--HW well positioned without fracture RLE--2 plus DP pulse with brisk cap refill intact DF and PF of toes and ankle intact sensation to light touch throughout s/p RTKA mobilize as able Final Diagnosis rough day yesterday, but better today Laboratory Tests Test 11/01/22 05:48 Range/Units White Blood Count 7.9 4.3-11.0 10^3/uL Red Blood Count 3.21 L 3.80-5.11 10^6/uL Hemoglobin 9.8 L 11.5-16.0 g/dL Hematocrit 30 L 35-52 % Mean Corpuscular Volume 93 80-99 fL Mean Corpuscular Hemoglobin 31 25-34 pg Mean Corpuscular Hemoglobin Concent 33 32-36 g/dL Red Cell Distribution Width 14.3 10.0-14.5 % Platelet Count 205 130-400 10^3/uL Mean Platelet Volume 10.9 9.0-12.2 fL Immature Granulocyte % (Auto) 0 % Neutrophils (%) (Auto) 80 H 42-75 % Lymphocytes (%) (Auto) 9 L 12-44 % Monocytes (%) (Auto) 9 0-12 % Eosinophils (%) (Auto) 1 0-10 % Basophils (%) (Auto) 0 0-10 % Neutrophils # (Auto) 6.3 1.8-7.8 10^3/uL Lymphocytes # (Auto) 0.7 L 1.0-4.0 10^3/uL Monocytes # (Auto) 0.7 0.0-1.0 10^3/uL Eosinophils # (Auto) 0.0 0.0-0.3 10^3/uL Basophils # (Auto) 0.0 0.0-0.1 10^3/uL Immature Granulocyte # (Auto) 0.0 0.0-0.1 10^3/uL Prothrombin Time 16.7 H 12.2-14.7 SEC INR Comment 1.3 0.8-1.4 Sodium Level 135 135-145 MMOL/L Potassium Level 4.6 3.6-5.0 MMOL/L Chloride Level 103 98-107 MMOL/L Carbon Dioxide Level 23 21-32 MMOL/L Anion Gap 9 5-14 MMOL/L Blood Urea Nitrogen 14 7-18 MG/DL Creatinine 0.83 0.60-1.30 MG/DL Estimat Glomerular Filtration Rate 76 BUN/Creatinine Ratio 17 Glucose Level 135 H 70-105 MG/DL Calcium Level 8.7 8.5-10.1 MG/DL Corrected Calcium 9.2 8.5-10.1 MG/DL Total Bilirubin 1.1 H 0.1-1.0 MG/DL Aspartate Amino Transf (AST/SGOT) 16 5-34 U/L Alanine Aminotransferase (ALT/SGPT) 13 0-55 U/L Alkaline Phosphatase 67 40-136 U/L Total Protein 6.1 L 6.4-8.2 GM/DL Albumin 3.4 3.2-4.5 GM/DL Vital Signs Date Time Temp Pulse Resp B/P (MAP) Pulse Ox O2 Delivery O2 Flow Rate FiO2 11/01/22 03:53 36.9 98 16 157/97 (117) 98 NIV CPAP 11/01/22 02:47 98 NIV CPAP 11/01/22 00:11 36.4 109 18 142/97 (112) 98 NIV CPAP 10/31/22 22:57 97 Room Air 0.00 10/31/22 20:29 35.3 92 14 173/79 (110) 99 Room Air 0.00 0.00 10/31/22 20:20 Room Air 10/31/22 19:10 35.3 92 14 209/84 (125) 99 Room Air 10/31/22 18:44 91 Room Air 0.00 10/31/22 16:51 36.4 88 9 185/72 (109) 97 Room Air 0.00 0.00 10/31/22 15:29 36.4 88 9 185/72 (109) 97 Room Air 10/31/22 13:27 95 Room Air 0.00 10/31/22 11:15 36.7 92 18 170/63 (98) 97 Room Air 10/31/22 09:52 100 Room Air 0.00 10/31/22 09:15 92 145/64 (91) 10/31/22 09:00 Room Air 10/31/22 07:15 36.5 73 18 189/79 (115) 99 NIV CPAP I & O 11/01/22 07:00 Intake Total 2640 ml Output Total 500 ml Balance 2140 ml R knee incision clean and dry no calf tenderness neg Rupert's s/p RTKA PT/OT with DC tomorrow RAIZA GLASER MD Nov 01, 2022 07:02
[2022-11-01] MEDS ORDERED: morphine INJ 4 MG/ML 1 ML (VIAL/SYRINGE) IVP PRN (07:15)
[2022-11-01 07:26] VITALS: BP 115/71
--- NOTE | 2022-11-01 09:02 | Physical Therapy Daily Note ---
PT Daily Note-Current Subjective Patient in bed pre tx, agrees to PT, has 7/10 pain in right knee. Patient states she needs to use the restroom. Pain Section J - Health Conditions 1. Rarely or not at all 2. Occasionally 3. Frequently 4. Almost constantly 8. Unable to answer Pain Effect on Sleep: 4 Pain Interference with Therapy: 4 Pain Interference w/Day-to-Day: 4 Appearance Patient in recliner post tx with nurse call, phone, tray, all needs met. Mental Status Patient Orientation: Person, Place, Situation Attachments: IV Transfers SCALE: Activities may be completed with or without assistive devices. 5-Vrwovuzpgl-abcqvym completes the activity by him/herself with no assistance from a helper. 5-Set-up or Clean-up Assistance-helper sets up or cleans up; patient completes activity. [place] assists only prior to or following the activity. 4-Supervision or Touching Assistance-helper provides verbal cues and/or touching/steadying and/or contact guard assistance as patient completes activity. Assistance may be provided throughout the activity or intermittently. 3-Partial/Moderate Assistance-helper does LESS THAN HALF the effort. [place] lifts, holds or supports trunk or limbs, but provides less than half the effort. 2-Substantial/Maximal Assistance-helper does MORE THAN HALF the effort. [place] lifts or holds trunk or limbs and provides more than half the effort. 8-Hatcxnrvf-pxvhjg does ALL the effort. Patient does none of the effort to complete the activity. Or, the assistance of 2 or more helpers is required for the patient to complete the activity. If activity was not attempted, code reason: 7-Patient Refused. 9-Not Applicable-not attempted and the patient did not perform the activity before the current illness, exacerbation or injury. 10-Not Attempted due to Environmental Limitations-(lack of equipment, weather restraints, etc.). 88-Not Attempted due to Medical Conditions or Safety Concerns. Roll Left & Right (QC): 4 Lying to Sitting/Side of Bed(Q: 3 Sit to Stand (QC): 3 Chair/Mam-lt-Tlkhr Xfer(QC): 4 Weight Bearing Right Lower Extremity: Right Weight Bearing/Tolerated Gait Training Distance: 20'x2 Walk 10 feet (QC): 4 Gait Persons Needed: 1 Gait Assistive Device: FWW slow, antalgic, doesn't bear much weight on her right leg, poor step through on the left side, has slightly improve heel strike though Exercises Supine Ex: Quad Set, Glut sets Supine Reps: 15 (done in recliner with legs elevated) Seated Therapy Exercises: Ankle pumps, Long arc quads (AAROM), Hamstring Curls (AAROM) Seated Reps: 15 Treatments bed mobility and transfers, ambulation, LE ROM Assessment Current Status: Poor Progress less pain today, improved heel strike, no increase in distance of ambulation PT [facility] Goals Driver Trainer Goals PT [facility] Goals Time Frame: Nov 06, 2022 Roll Left & Right (QC): 6 Sit to Lying (QC): 6 Lying-Sitting on Side/Bed(QC): 6 Sit to Stand (QC): 4 (SBA) Chair/Mrk-kj-Rriyq Xfer(QC): 4 (SBA) Walk 10 feet (QC): 4 (SBA) Walk 50ft with 2 Turns (QC): 4 (SBA) Walk 150 ft (QC): 4 (SBA) 1 Step (curb) (QC): 4 (CGA) 4 Steps (QC): 4 (CGA) PT Plan Problem List Problem List: Activity Tolerance, Functional Strength, Safety, Balance, Gait, Transfer, Bed Mobility, ROM Treatment/Plan Treatment Plan: Continue Plan of Care Treatment Plan: Bed Mobility, Education, Functional Activity Chan, Functional Strength, Gait, Safety, Therapeutic Exercise, Transfers Treatment Duration: Nov 06, 2022 Frequency: 11 times per week Estimated Hrs Per Day: .25 hour per day Patient and/or Family Agrees t: Yes Safety Risks/Education Patient Education: Gait Training, Transfer Techniques, Correct Positioning, Safety Issues Teaching Recipient: Patient Teaching Methods: Demonstration, Discussion Response to Teaching: Reinforcement Needed Time Time In: 830 Time Out: 846 DATE: Nov 01, 2022 Total Billed Treatment Time: 16 Total Billed Treatment 1 visit FA Soumya' REILLY LUTZ PT Nov 01, 2022 09:02
[2022-11-01] MEDS: FAMOTIDINE 20 MG (PEPCID) TABLET PO SCH ×2 (09:05→20:28)
[2022-11-01] MEDS: CYCLOBENZAPRINE 10 MG (FLEXERIL) TAB PO PRN ×3 (09:05→22:02)
[2022-11-01] MEDS: ASPIRIN E.C. 81 MG (ECOTRIN) TAB PO SCH (09:05)
[2022-11-01] MEDS: buPROPion SR 150 MG (WELLBUTRIN SR) TAB PO SCH (09:05)
[2022-11-01] MEDS: SENNA W/DOCUSATE (SENOKOT S) TABLET PO SCH ×2 (09:05→20:28)
[2022-11-01] MEDS: oxyCODONE/APAP 5/325MG (PERCOCET 5) TABLET PO PRN ×6 (09:06→20:29)
[2022-11-01] MEDS: LORATADINE (CLARITIN) 10 MG TAB PO SCH (09:06)
[2022-11-01] MEDS ORDERED: ENOX100D9 SQ (09:53)
--- NOTE | 2022-11-01 09:55 | Progress Note - Hospitalist ---
Subjective HPI/CC On Admission Date Seen by Provider: Nov 01, 2022 Time Seen by Provider: 09:35 Carmela Cotton is a 71 year old female with PMH HTN, HLD, hypothyroidism, asthma, history of DVT, osteoarthritis, who presented for a scheduled right total knee arthroplasty. She has been holding her coumadin for the past week. She is having some pain post-operatively. She is not short of breath. She has no other complaints. Subjective/Events-last exam She is doing better. Her pain is improved. She was able to get over to her chair with therapy. She is eating breakfast. She is going to try to walk again soon. Objective Exam Vital Signs Vital Signs Date Time Temp Pulse Resp B/P (MAP) Pulse Ox O2 Delivery O2 Flow Rate FiO2 11/01/22 07:28 100 Room Air 11/01/22 07:26 36.0 96 18 115/71 (86) 10/31/22 22:57 0.00 Capillary Refill : General Appearance: No Apparent Distress, Obese Respiratory: Lungs Clear, No Respiratory Distress Cardiovascular: Regular Rate, Rhythm, No Murmur Gastrointestinal: Normal Bowel Sounds, Soft Extremity: Normal Inspection, No Pedal Edema Neurologic/Psychiatric: Alert, Normal Mood/Affect Skin: Normal Color, Warm/Dry Results/Procedures Lab Laboratory Tests 11/01/22 05:48 Patient resulted labs reviewed. Imaging: Reviewed Imaging Report Assessment/Plan Assessment and Plan Assess & Plan/Chief Complaint Right TKA Osteoarthritis Ortho primary s/p TKA 10/30 Pain regimen Bowel regimen Incentive spirometry PT/OT History of DVT INR 1.3 Continue Coumadin Bridge with therapeutic Lovenox HTN HLD Hypothyroidism CHF Asthma Continue home meds as able Diagnosis/Problems Diagnosis/Problems (1) S/P total knee arthroplasty Status: Acute Qualifiers: Laterality: right Qualified Codes: Z96.651 - Presence of right artificial knee joint (2) Osteoarthritis of right knee Status: Chronic (3) History of DVT (deep vein thrombosis) Status: Chronic (4) Obesity Status: Chronic (5) HTN (hypertension) Status: Chronic (6) HLD (hyperlipidemia) Status: Chronic (7) Asthma Status: Chronic (8) Hypothyroidism Status: Chronic KARLIE RAMSEY MD Nov 01, 2022 09:55
[2022-11-01 11:02] VITALS: BP 103/63
--- NOTE | 2022-11-01 11:10 | Occupational Ther Daily Note ---
OT Current Status-Daily Note Subjective Pt in recliner eating breakfast, agreeable to OT Tx. Mental Status/Objective Patient Orientation: Person, Place, Situation Attachments: Polar Pack ADL-Treatment Therapy Code Descriptions/Definitions Functional [place] Measure: 0=Not Assessed/NA 4=Minimal Assistance 1=Total Assistance 5=Supervision or Setup 2=Maximal Assistance 6=Modified [place] 3=Moderate Assistance 7=Complete IndependenceSCALE: Activities may be completed with or without assistive devices. 9-Czegiytwmc-copllxf completes the activity by him/herself with no assistance from a helper. 5-Set-up or Clean-up Assistance-helper sets up or cleans up; patient completes activity. [place] assists only prior to or following the activity. 4-Supervision or Touching Assistance-helper provides verbal cues and/or touching/steadying and/or contact guard assistance as patient completes activity. Assistance may be provided throughout the activity or intermittently. 3-Partial/Moderate Assistance-helper does LESS THAN HALF the effort. [place] lifts, holds or supports trunk or limbs, but provides less than half the effort. 2-Substantial/Maximal Assistance-helper does MORE THAN HALF the effort. [place] lifts or holds trunk or limbs and provides more than half the effort. 8-Vootaieaz-clsofz does ALL the effort. Patient does none of the effort to complete the activity. Or, the assistance of 2 or more helpers is required for the patient to complete the activity. If activity was not attempted, code reason: 7-Patient Refused. 9-Not Applicable-not attempted and the patient did not perform the activity before the current illness, exacerbation or injury. 10-Not Attempted due to Environmental Limitations-(lack of equipment, weather restraints, etc.). 88-Not Attempted due to Medical Conditions or Safety Concerns. Eating (QC): 6 Oral Hygiene (QC): 4 (CGA) Upper Body Dressing (QC): 5 Lower Body Dressing (QC): 4 (CGA) Toileting Hygiene (QC): 4 (CGA) Other Treatment Pt in recliner, finished breakfast. Pt used FWW to transfer into bathroom and onto toilet, CGA. Pt completed toileting, donned LE/UE clothing. Pt then requests to stand at sink to brush her dentures, CGA in stand. Pt fatigued quickly and had increased pain, requests to return to recliner in order to place fixodent on dentrues and place in mouth. Pt returned to recliner, CGA, polar pack applied. Post tx, pt in recliner, call light in reach and all needs met. CGA sit to stand transfers and functional mobility using FWW Education OT Patient Education: Correct positioning, Energy conservation, Modified ADL techniques, Progress toward Goal/Update tx plan, Rehab process Teaching Recipient: Patient Teaching Methods: Discussion Response to Teaching: Verbalize Understanding OT Canceling And Cutting Control Clerk Goals Canceling And Cutting Control Clerk Goals Time Frame: Nov 14, 2022 Eating (QC): 6 Oral Hygiene (QC): 5 Toileting Hygiene (QC): 4 Shower/Bathe Self (QC): 4 Upper Body Dressing (QC): 5 Lower Body Dressing (QC): 4 On/Off Footwear (QC): 4 Additional Goals: 1-Demonstrate ADL Tasks, 2-Verbalize Understanding, 3- ImproveStrength/Chan 1=Demonstrate adherence to instructed precautions during ADL tasks. 2=Patient will verbalize/demonstrate understanding of assistive devices/modifications for ADL. 3=Patient will improve strength/tolerance for activity to enable patient to perform ADL's. OT Education/Plan Problem List/Assessment Assessment: Decreased Activ Tolerance, Decreased UE Strength, Impaired Funct Balance, Impaired I ADL's, Impaired Self-Care Skills Discharge Recommendations Plan/Recommendations: Continue POC Treatment Plan/Plan of Care Patient would benefit from OT for education, treatment and training to promote independence in ADL's, mobility, safety and/or upper extremity function for ADL's. Plan of Care: ADL Retraining, Functional Mobility, Group Exercise/Act as Ind, UE Funct Exercise/Act Treatment Duration: Nov 14, 2022 Frequency: 5 times per week Estimated Hrs Per Day: .25 hour per day Rehab Potential: Fair Time Start Time: 10:15 Stop Time: 10:33 DATE: Nov 01, 2022 Total Time Billed (hr/min): 23 Billed Treatment Time 1, ADL NAYE CORBIN OT Nov 01, 2022 11:10
--- NOTE | 2022-11-01 11:56 | Physical Therapy Daily Note ---
PT Daily Note-Current Subjective Pt. agrees to rx after some encouragement. pt. does not rate pain but c/o discomfort while walking. Describes her home situation and stairs and distances etc. Pain Location: No Pain Reported Section J - Health Conditions 1. Rarely or not at all 2. Occasionally 3. Frequently 4. Almost constantly 8. Unable to answer Pain Effect on Sleep: 2 Pain Interference with Therapy: 2 Pain Interference w/Day-to-Day: 2 Mental Status Patient Orientation: Normal For Age Attachments: Polar Pack Transfers SCALE: Activities may be completed with or without assistive devices. 7-Njwxuliend-abwwxfz completes the activity by him/herself with no assistance from a helper. 5-Set-up or Clean-up Assistance-helper sets up or cleans up; patient completes activity. [place] assists only prior to or following the activity. 4-Supervision or Touching Assistance-helper provides verbal cues and/or lea alyse/steadying and/or contact guard assistance as patient completes activity. Assistance may be provided throughout the activity or intermittently. 3-Partial/Moderate Assistance-helper does LESS THAN HALF the effort. [place] lifts, holds or supports trunk or limbs, but provides less than half the effort. 2-Substantial/Maximal Assistance-helper does MORE THAN HALF the effort. [place] lifts or holds trunk or limbs and provides more than half the effort. 6-Yzzkgykxb-tecsyt does ALL the effort. Patient does none of the effort to complete the activity. Or, the assistance of 2 or more helpers is required for the patient to complete the activity. If activity was not attempted, code reason: 7-Patient Refused. 9-Not Applicable-not attempted and the patient did not perform the activity before the current illness, exacerbation or injury. 10-Not Attempted due to Environmental Limitations-(lack of equipment, weather restraints, etc.). 88-Not Attempted due to Medical Conditions or Safety Concerns. Sit to Stand (QC): 6 instructed in safer technique for sit to stand as pt. abandons FWW 2 ft from chair and turns while only holding arm of chair in one spot Weight Bearing Right Lower Extremity: Right Weight Bearing/Tolerated Gait Training Does the Patient Walk?: Yes Walk 10 feet (QC): 4 Walk 50 ft with 2 Turns(QC): 4 Walk 150 ft (QC): 4 Gait Persons Needed: 1 Gait Assistive Device: FWW CGA to SBA 150 ft, slow with standing rest breaks x 2, heavy wt bearing on FWW, unequal step length but better wt bearing and pattern with RLE Exercises Supine Ex: Ankle pumps, Quad Set, Heel Slides Supine Reps: 15 Seated Therapy Exercises: Ankle pumps, Sit to stand, Hamstring Curls Seated Reps: 10 Treatments gait 150 ft, TRF instruction, exercise in reclined and seated position, polar pack back on, call [place] at hand Assessment Current Status: Good Progress resistant to Rx, c/o discomfort but does not rate PT [facility] Goals [facility] Goals PT Technology Applications Consultant Goals Time Frame: Nov 06, 2022 Roll Left & Right (QC): 6 Sit to Lying (QC): 6 Lying-Sitting on Side/Bed(QC): 6 Sit to Stand (QC): 4 (SBA) Chair/Vhm-ro-Jnsoi Xfer(QC): 4 (SBA) Walk 10 feet (QC): 4 (SBA) Walk 50ft with 2 Turns (QC): 4 (SBA) Walk 150 ft (QC): 4 (SBA) 1 Step (curb) (QC): 4 (CGA) 4 Steps (QC): 4 (CGA) PT Plan Treatment/Plan Treatment Plan: Continue Plan of Care Treatment Plan: Bed Mobility, Education, Functional Activity Chan, Functional Strength, Gait, Safety, Therapeutic Exercise, Transfers Treatment Duration: Nov 06, 2022 Frequency: 11 times per week Estimated Hrs Per Day: .25 hour per day Patient and/or Family Agrees t: Yes Safety Risks/Education Patient Education: Gait Training, Transfer Techniques, Correct Positioning, Disease Process, Safety Issues Teaching Recipient: Patient Teaching Methods: Demonstration, Discussion Response to Teaching: Verbalize Understanding, Return Demonstration, Reinforcement Needed Time Time In: 1125 Time Out: 1150 DATE: Nov 01, 2022 Total Billed Treatment Time: 25 Total Billed Treatment 1,GT13,EX12 LUKE GUARDADO FRAME POLISHER Nov 01, 2022 11:56
[2022-11-01 15:33] VITALS: BP 139/64
[2022-11-01 19:41] VITALS: BP 103/63
[2022-11-01] MEDS: MONTELUKAST 10 MG (SINGULAIR) TAB PO SCH (20:28)
[2022-11-01] MEDS: AtorvaSTATin TABLET 10 MG TABLET PO SCH (20:28)
[2022-11-01] MEDS: warFARin 3 MG (COUMADIN) TAB PO SCH (20:28)
[2022-11-01] MEDS: NORTRIPTYLINE 25 MG (PAMELOR) CAP PO SCH (20:28)
[2022-11-02 00:20] VITALS: BP 129/88
[2022-11-02 03:29] VITALS: BP 142/65
[2022-11-02] MEDS: ENOXAPARIN 100 MG/1 ML (LOVENOX) SYR SC SCH (03:52)
[2022-11-02] MEDS: oxyCODONE/APAP 5/325MG (PERCOCET 5) TABLET PO PRN ×2 (04:03→08:21)
[2022-11-02] MEDS: LEVOTHYROXINE 100 MCG (LEVOTHROID) TAB PO SCH (06:03)
--- NOTE | 2022-11-02 06:41 | Progress Note ---
Standard Progress Note Progress Notes/Assess & Plan Date Seen by a Provider: Nov 02, 2022 Time Seen by a Provider: 06:40 Progress/Assessment & Plan post op check no complaints radiographs--HW well positioned without fracture RLE--2 plus DP pulse with brisk cap refill intact DF and PF of toes and ankle intact sensation to light touch throughout s/p RTKA mobilize as able Final Diagnosis no complaints' Vital Signs Date Time Temp Pulse Resp B/P (MAP) Pulse Ox O2 Delivery O2 Flow Rate FiO2 11/02/22 03:29 36.1 86 16 142/65 (90) 98 Room Air 11/02/22 00:20 36.2 88 16 129/88 (102) 95 Room Air 11/01/22 20:30 Room Air 11/01/22 19:41 35.9 70 18 103/63 (76) 97 Room Air 11/01/22 15:33 36.5 83 18 139/64 (89) 100 Room Air 11/01/22 11:02 35.7 99 18 103/63 (76) 97 Room Air 11/01/22 09:00 Room Air 11/01/22 07:28 100 Room Air 11/01/22 07:26 36.0 96 18 115/71 (86) 100 Room Air 11/01/22 07:00 18 I & O 11/02/22 07:00 Intake Total 1440 ml Output Total 1750 ml Balance -310 ml RLE--neg Rupert's no calf tenderness incision clean and dry s/p RTKA DC home RAIZA GLASER MD Nov 02, 2022 06:41
[2022-11-02 07:06] LABS: BASOPHILS % (AUTO) 0 % (0-10); EOSINOPHILS # (AUTO) 0.1 10^3/uL (0.0-0.3); EOSINOPHILS % (AUTO) 2 % (0-10); HEMATOCRIT 25 % (35-52); HEMOGLOBIN 8.1 g/dL (11.5-16.0); LYMPHOCYTES # (AUTO) 0.8 10^3/uL (1.0-4.0); LYMPHOCYTES % (AUTO) 10 % (12-44); MEAN CORPUSCULAR HEMOGLOBIN 30 pg (25-34); MEAN CORPUSCULAR HGB CONC 33 g/dL (32-36); MEAN CORPUSCULAR VOLUME 92 fL (80-99); MONOCYTES # (AUTO) 0.7 10^3/uL (0.0-1.0); MONOCYTES % (AUTO) 9 % (0-12); NEUTROPHILS # (AUTO) 5.9 10^3/uL (1.8-7.8); NEUTROPHILS % (AUTO) 79 % (42-75); PLATELET COUNT 206 10^3/uL (130-400); WHITE BLOOD COUNT 7.5 10^3/uL (4.3-11.0)
[2022-11-02 07:15] LABS: INR 1.4 (0.8-1.4); PROTHROMBIN TIME PATIENT 17.8 SEC (12.2-14.7)
[2022-11-02 07:25] VITALS: BP 131/60
[2022-11-02 07:28] LABS: ALBUMIN 3.3 GM/DL (3.2-4.5); BILIRUBIN,TOTAL 0.7 MG/DL (0.1-1.0); CALCIUM 8.8 MG/DL (8.5-10.1); CREATININE SERUM 0.9 MG/DL (0.60-1.30); POTASSIUM 3.9 MMOL/L (3.6-5.0); TOTAL PROTEIN 6.1 GM/DL (6.4-8.2)
[2022-11-02] MEDS: buPROPion SR 150 MG (WELLBUTRIN SR) TAB PO SCH (08:15)
[2022-11-02] MEDS: ASPIRIN E.C. 81 MG (ECOTRIN) TAB PO SCH (08:15)
[2022-11-02] MEDS: FAMOTIDINE 20 MG (PEPCID) TABLET PO SCH (08:15)
[2022-11-02] MEDS: LORATADINE (CLARITIN) 10 MG TAB PO SCH (08:15)
[2022-11-02] MEDS: SENNA W/DOCUSATE (SENOKOT S) TABLET PO SCH (08:16)
[2022-11-02] MEDS: CYCLOBENZAPRINE 10 MG (FLEXERIL) TAB PO PRN (08:20)
--- NOTE | 2022-11-02 12:50 | Physical Therapy Daily Note ---
PT Daily Note-Current Subjective Pt. seated EOB, getting ready for discharge. Pt. agrees to PT. Pain Section J - Health Conditions 1. Rarely or not at all 2. Occasionally 3. Frequently 4. Almost constantly 8. Unable to answer Pain Effect on Sleep: 2 Pain Interference with Therapy: 2 Pain Interference w/Day-to-Day: 2 Mental Status Patient Orientation: Person, Place, Time, Situation Transfers SCALE: Activities may be completed with or without assistive devices. 2-Tdntefoctf-dfsjgsn completes the activity by him/herself with no assistance from a helper. 5-Set-up or Clean-up Assistance-helper sets up or cleans up; patient completes activity. Conklin assists only prior to or following the activity. 4-Supervision or Touching Assistance-helper provides verbal cues and/or touching/steadying and/or contact guard assistance as patient completes activity. Assistance may be provided throughout the activity or intermittently. 3-Partial/Moderate Assistance-helper does LESS THAN HALF the effort. Conklin lifts, holds or supports trunk or limbs, but provides less than half the effort. 2-Substantial/Maximal Assistance-helper does MORE THAN HALF the effort. Conklin lifts or holds trunk or limbs and provides more than half the effort. 2-Nwbdoqfuu-bahnmp does ALL the effort. Patient does none of the effort to complete the activity. Or, the assistance of 2 or more helpers is required for the patient to complete the activity. If activity was not attempted, code reason: 7-Patient Refused. 9-Not Applicable-not attempted and the patient did not perform the activity before the current illness, exacerbation or injury. 10-Not Attempted due to Environmental Limitations-(lack of equipment, weather restraints, etc.). 88-Not Attempted due to Medical Conditions or Safety Concerns. Sit to Stand (QC): 4 Weight Bearing Right Lower Extremity: Right Weight Bearing/Tolerated Gait Training Does the Patient Walk?: Yes Distance: 100 ft Walk 10 feet (QC): 4 Walk 50 ft with 2 Turns(QC): 4 Gait Persons Needed: 1 Gait Assistive Device: FWW steady with ambulation but needs cues for heel-toe pattern Exercises Seated Therapy Exercises: Ankle pumps, Long arc quads (5 reps), Hamstring Curls Seated Reps: 10 review HEP for TKR Assessment Current Status: Good Progress, Fair Progress Pt. has increased R knee pain with all mobility and does self-limit ambulation distance and ability to transfer/complete exercises. She verbalizes good understanding of exercises to complete at home. Pt. in transport chair for discharge upon exit. D/C PT. PT Lathe Turner Goals Lathe Turner Goals PT Lathe Turner Goals Time Frame: Nov 06, 2022 Roll Left & Right (QC): 6 Sit to Lying (QC): 6 Lying-Sitting on Side/Bed(QC): 6 Sit to Stand (QC): 4 (SBA) Chair/Sml-fg-Qabxo Xfer(QC): 4 (SBA) Walk 10 feet (QC): 4 (SBA) Walk 50ft with 2 Turns (QC): 4 (SBA) Walk 150 ft (QC): 4 (SBA) 1 Step (curb) (QC): 4 (CGA) 4 Steps (QC): 4 (CGA) PT Plan Treatment/Plan Treatment Plan: Discontinue PT Treatment Plan: Bed Mobility, Education, Functional Activity Chan, Functional Strength, Gait, Safety, Therapeutic Exercise, Transfers Treatment Duration: Nov 06, 2022 Frequency: 11 times per week Estimated Hrs Per Day: .25 hour per day Patient and/or Family Agrees t: Yes Time Time In: 905 Time Out: 917 DATE: Nov 02, 2022 Total Billed Treatment Time: 12 Total Billed Treatment 1, GT 12' JEROD LRAIOS PT Nov 02, 2022 12:50
--- NOTE | 2022-11-02 13:14 | DISCHARGE SUMMARY ---
ADDENDUM: The patient's discharge date was 11/02/2022. She remained admitted from 11/01 due to impaired mobility and need for further physical therapy. At the time of discharge, her mobility had markedly improved and she was independent. Job ID: [id number] DocumentID: [id number] Dictated Date: 11/02/2022 06:42:18 Torpedo Specialist Date: 11/02/2022 13:12:00 Dictated By: RAIZA GLASER MD
== END 2022-11-02 09:25 | disposition home health service (06) | DRG 470 ==
LOC: 4TH 05:45 → SURG 05:46 → 4TH 10:09
PROVIDERS: ADMIT Orthopaedic Surgery; ATTEND Orthopaedic Surgery
PROC: 0SRC0J9 Replacement of Right Knee Joint with Synthetic Substitute, Cemented, Open Approach (ICD-10-PCS; principal; 2022-10-30 07:32)
DX: M17.11 Unilateral primary osteoarthritis, right knee (principal); J44.9 Chronic obstructive pulmonary disease, unspecified; I11.0 Hypertensive heart disease with heart failure; I50.9 Heart failure, unspecified; E03.9 Hypothyroidism, unspecified; I25.10 Atherosclerotic heart disease of native coronary artery without angina pectoris; E78.00 Pure hypercholesterolemia, unspecified; K21.9 Gastro-esophageal reflux disease without esophagitis; Z23 Encounter for immunization; Z96.652 Presence of left artificial knee joint; Z87.891 Personal history of nicotine dependence; Z86.718 Personal history of other venous thrombosis and embolism; Z79.01 Long term (current) use of anticoagulants; Z95.1 Presence of aortocoronary bypass graft; Z85.42 Personal history of malignant neoplasm of other parts of uterus; Z82.49 Family history of ischemic heart disease and other diseases of the circulatory system
CPT/HCPCS: 36415; 73560; 80053; 85014; 85018; 85025; 85610; 86850; 86900; 86901; 90662; 94664; 94760

== ENCOUNTER → 2022-11-15 | Outpatient (CLI) | payer MEDICARE ==
[~2022-11-15] MED LIST changes: +CYCL10TA25 PO; +ENOX100D9 SQ; +TRAM50TA3 PO
[2022-11-15 13:59] LABS: BASOPHILS % (AUTO) 0 % (0-10); EOSINOPHILS # (AUTO) 0.1 10^3/uL (0.0-0.3); EOSINOPHILS % (AUTO) 1 % (0-10); HEMATOCRIT 30 % (35-52); HEMOGLOBIN 9.4 g/dL (11.5-16.0); LYMPHOCYTES # (AUTO) 0.8 10^3/uL (1.0-4.0); LYMPHOCYTES % (AUTO) 10 % (12-44); MEAN CORPUSCULAR HEMOGLOBIN 30 pg (25-34); MEAN CORPUSCULAR HGB CONC 31 g/dL (32-36); MEAN CORPUSCULAR VOLUME 98 fL (80-99); MEAN PLATELET VOLUME 8.8 fL (9.0-12.2); MONOCYTES # (AUTO) 0.5 10^3/uL (0.0-1.0); MONOCYTES % (AUTO) 6 % (0-12); NEUTROPHILS # (AUTO) 5.8 10^3/uL (1.8-7.8); NEUTROPHILS % (AUTO) 80 % (42-75); PLATELET COUNT 428 10^3/uL (130-400); WHITE BLOOD COUNT 7.3 10^3/uL (4.3-11.0)
[2022-11-15 14:14] LABS: INR 2.8 (0.8-1.4); PROTHROMBIN TIME PATIENT 29.7 SEC (12.2-14.7)
[2022-11-15 14:20] LABS: ALBUMIN 3.8 GM/DL (3.2-4.5); CALCIUM 9.1 MG/DL (8.5-10.1); CREATININE SERUM 1.29 MG/DL (0.60-1.30); POTASSIUM 4.3 MMOL/L (3.6-5.0); TOTAL PROTEIN 7.4 GM/DL (6.4-8.2)
== END ==
LOC: LAB 13:23
PROVIDERS: ATTEND Physician Assistant
DX: M25.561 Pain in right knee (principal); R94.5 Abnormal results of liver function studies; D64.9 Anemia, unspecified; Z86.718 Personal history of other venous thrombosis and embolism
CPT/HCPCS: 36415; 80053; 85025; 85610

== ENCOUNTER → 2022-11-26 | Outpatient (CLI) | payer MEDICARE ==
[~2022-11-26] MED LIST changes: -POTA10CA43 PO; +POTA10CA44 PO
[2022-11-26 15:47] LABS: HEMATOCRIT 35 % (35-52); MEAN CORPUSCULAR HEMOGLOBIN 30 pg (25-34); MEAN CORPUSCULAR HGB CONC 31 g/dL (32-36); MEAN CORPUSCULAR VOLUME 96 fL (80-99); MEAN PLATELET VOLUME 9.7 fL (9.0-12.2); PLATELET COUNT 309 10^3/uL (130-400)
[2022-11-26 16:06] LABS: ALBUMIN 4.3 GM/DL (3.2-4.5); BILIRUBIN,TOTAL 0.8 MG/DL (0.1-1.0); CALCIUM 9.4 MG/DL (8.5-10.1); CREATININE SERUM 1.33 MG/DL (0.60-1.30); TOTAL PROTEIN 7.7 GM/DL (6.4-8.2)
[2022-11-26 16:31] LABS: INR 2.4 (0.8-1.4); PROTHROMBIN TIME PATIENT 26.7 SEC (12.2-14.7)
--- NOTE | 2022-11-26 18:32 | Diagnostic Imaging Report ---
EXAMINATION: Chest 2 view HISTORY: Cough and COPD COMPARISON: 10/23/2022 FINDINGS: The lungs are clear without edema or pneumonia. No pleural effusion or pneumothorax. Heart size is normal. There is a calcified granuloma in the left upper zone. Median sternotomy wires are aligned. IMPRESSION: 1. Clear lungs. Dictated by: Dictated on workstation # [id number]
== END ==
LOC: RAD 15:04
PROVIDERS: ATTEND Physician Assistant
DX: J44.9 Chronic obstructive pulmonary disease, unspecified (principal)
CPT/HCPCS: 36415; 71046; 80053; 85027; 85610

== ENCOUNTER 2022-12-25 11:13 | Emergency (ER) | payer MEDICARE ==
[~2022-12-25] VITALS: Ht 170 cm; Wt 86.2 kg
[2022-12-25 11:28] VITALS: BP 107/51
--- NOTE | 2022-12-25 11:51 | ED Upper Extremity ---
General Chief Complaint: Upper Extremity Stated Complaint: RT HAND PAIN Nursing Triage Note: PT AMB TO ED BY POV WITH C/O R WRIST/HAND PAIN. PT REPORTS YESTERDAY EVENING, SHE SAW AN INDENTATION ON R HAND THAT "LOOKED LIKE IT GOT SCOOPED OUT." NO PAIN AT THAT TIME. DURING THE NIGHT, PT WOKE WITH PAIN IN HAND, NOW RADIATES INTO R FA. DENIES INJURY. Source: patient Exam Limitations: no limitations History of Present Illness Date Seen by Provider: Dec 25, 2022 Time Seen by Provider: 11:40 Initial Comments 72-year-old female who presents with right wrist pain. Allergies and Home Medications Allergies Coded Allergies: No Known Drug Allergies (Verified , 10/30/22) Patient Home Medication List Albuterol Sulfate (Ventolin Hfa) 1 Puff Puff, 2 PUFF INH QID PRN for SHORTNESS OF BREATH, (Reported) Entered as Reported by: SHELLY NIX on 10/27/18 1006 Alendronate Sodium (Alendronate Sodium) 10 Mg Tablet, 10 MG PO DAILY, (Reported) Entered as Reported by: DEZ GONZALEZ on 10/23/22 09 Aspirin (Aspirin EC) 81 Mg Tablet.dr, 81 MG PO DAILY, (Reported) Entered as Reported by: SHELLY NIX on 10/27/18 1006 Atorvastatin Calcium (Atorvastatin Calcium) 10 Mg Tablet, 10 MG PO HS, (Reported) Entered as Reported by: SYLVIA MCDANIELS on 02/16/16 1006 Budesonide/Formoterol Fumarate (Symbicort 160-4.5 Mcg Inhaler) 160 Mcg-4.5 Mcg/Actuation Hfa.aer.ad, 2 PUFF IH BID PRN for SHORTNESS OF BREATH, (Reported) Entered as Reported by: SHELLY NIX on 10/27/18 1006 Bupropion HCl (Bupropion Xl) 150 Mg Tab.er.24h, 150 MG PO DAILY, (Reported) Entered as Reported by: DEZ GONZALEZ on 10/23/22 0913 Cetirizine HCl (Zyrtec) 10 Mg Tablet, 10 MG PO DAILY, (Reported) Entered as Reported by: SHELLY NIX on 10/27/18 1006 Cholecalciferol (Vitamin D3) (Vitamin D3) 25 Mcg Tablet, 25 MCG PO DAILY, (Reported) Entered as Reported by: IVELISSE WALLACE on 10/29/21 1236 Cyclobenzaprine HCl (Cyclobenzaprine HCl) 10 Mg Tablet, 10 MG PO TID PRN for MUSCLE SPASMS, (Reported) Entered as Reported by: ONEAL VOGT on 10/30/22 1541 Docusate Sodium (Docusate Sodium) 100 Mg Capsule, 100 MG PO DAILY PRN for CONSTIPATION-1ST LINE, (Reported) Entered as Reported by: DEZ GONZALEZ on 10/23/22 0913 Enoxaparin Sodium (Lovenox) 100 Mg/Ml Syringe, 100 MG SQ Q12H Prescribed by: KARLIE RAMSEY on 11/01/22 0953 Famotidine (Acid Button Attaching Machine Operator (FAMOTIDINE)) 20 Mg Tablet, 20 MG PO BID, (Reported) Entered as Reported by: IVELISSE WALLACE on 10/29/21 1236 Furosemide (Furosemide) 20 Mg Tablet, 20 MG PO TUE,, (Reported) Entered as Reported by: IVELISSE WALLACE on 10/29/21 1236 Ipratropium/Albuterol Sulfate (Iprat-Albut 0.5-3(2.5) mg/3 ml) 0.5 Mg-3 Mg (2.5 Mg Base)/3 Ml Ampul.neb, 3 ML IH Q4H PRN for SHORTNESS OF BREATH, (Reported) Entered as Reported by: DEZ GONZALEZ on 10/23/22 0913 Levothyroxine Sodium (Levothyroxine Sodium) 100 Mcg Tablet, 100 MCG PO DAILY, (Reported) Entered as Reported by: IVELISSE WALLACE on 10/29/21 1236 Montelukast Sodium (Montelukast Sodium) 10 Mg Tablet, 10 MG PO HS, (Reported) Entered as Reported by: IVELISSE WALLACE on 08/04/15 1636 Nortriptyline HCl (Nortriptyline HCl) 25 Mg Capsule, 25 MG PO HS, (Reported) Entered as Reported by: IVELISSE WALLACE on 10/29/21 1236 [place]-3/Dha/Epa/Dpa/Fish Oil ([place]-3 1,050 mg Softgel) 1 Each Capsule, 1 CAP PO DAILY, (Reported) Entered as Reported by: SHELLY NIX on 10/27/18 1006 Potassium Chloride (Potassium Chloride) 10 Meq Capsule.er, 10 MEQ PO TUE,FR, (Reported) Entered as Reported by: ONEAL VOGT on 10/30/22 1541 Tramadol HCl (Tramadol HCl) 50 Mg Tablet, 50-100 MG PO TID PRN for PAIN-MODERATE (5-7), (Reported) Entered as Reported by: ONEAL VOGT on 10/30/22 1541 Warfarin Sodium (Warfarin Sodium) 3 Mg Tablet, 3 MG PO HS, (Reported) Entered as Reported by: DEZ GONZALEZ on 10/23/22 0913 Past [place]-Cduwps-Uqasui Hx Patient Social History Tobacco Use?: No Use of E-Cig and/or Vaping dev: No Substance use?: No Alcohol Use?: No Pt feels they are or have been: No Immunizations Up To Date Tetanus Booster (TDap): Less than 5yrs Influenza Vaccine Up-to-Date: Yes; Up-to-Date First/Initial COVID19 Vaccinat: 2020 Second COVID19 Vaccination Giovanny: 2020 Third COVID19 Vaccination Date: 2020 Seasonal Allergies Seasonal Allergies: Yes Past Medical History Surgery/Hospitalization HX: hernia, cabg x1, CATARACTS, cholecystectomy, hysterectomy, t/a, cad, htn, gerd, copd, ASTHMA LEFT FEMUR FX/ORIF/PLATES BILAT TKR Surgeries: Yes (HIATAL HERNIA, LEFT TKR, SINGLE BYPASS; CATARACTS, L femur fx) Abdominal, Adenoidectomy, Appendectomy, Cardiac, CABG, Eye Surgery, Gallbladder, Hysterectomy, Joint Replacement, Orthopedic, Tonsillectomy Respiratory: Yes (CPAP, pulmonary hypertension) Asthma, Sleep Apnea, COPD Currently Using CPAP: Yes Currently Using BIPAP: No Cardiac: Yes (HX BY-PASS X1 2006;DVT'S LEFT LEG; CHRONIC LEFT LEG SWELLING) Chronic Edema/Swelling, Coronary Artery Disease, Deep Vein Thrombosis, High Cholesterol, Hypertension, Valvular Heart Disease Neurological: No Reproductive Disorders: No Female Reproductive Disorders: Denies 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 Sexually Transmitted Disease: No HIV/AIDS: No Genitourinary: Yes Kidney Infection, Bladder Infection Gastrointestinal: Yes Gastroesophageal Reflux, Hiatal Hernia Musculoskeletal: Yes (right knee pain, limited mobility) Arthritis, Fractures Endocrine: Yes Hypothyroidsim HEENT: Yes Cataract Loss of Vision: Denies Cancer: Yes (hysterectomy in 1989) Cervical Did You Recieve Any Treatments: Yes What Type of Treatment Did You: Surgical Intervention Psychosocial: No Integumentary: No Blood Disorders: Yes (hx of blood clots in 1989 pelvic area & left calf ) Family Medical History Alzheimer's disease 19 MOTHER, , Onset:Unknown G8 BROTHER, , Onset:Unknown Diabetes mellitus G8 BROTHER, Onset:Unknown FH: CHF (congestive heart failure) 19 MOTHER, , Onset:Unknown FH: brain aneurysm 19 FATHER, , Onset:Unknown FH: brain aneurysm 19 FATHER, , Onset:Unknown Hypertension 19 FATHER, , Onset:Unknown 19 MOTHER, , Onset:Unknown G8 BROTHER, Onset:Unknown Myocardial infarction 19 FATHER, , Onset:Unknown 19 MOTHER, , Onset:Unknown Prostate cancer G8 BROTHER, Onset:Unknown TIAs 19 MOTHER, , Onset:Unknown No Pertinent Family Hx Physical Exam Vital Signs Vital Signs - First Documented 12/25/22 11:28 Temp 36.0 Pulse 75 Resp 16 B/P (MAP) 107/51 (69) Pulse Ox 97 O2 Delivery Room Air Capillary Refill : Less Than 3 Seconds Height, Weight, BMI Height: 5'7.00" Weight: 247lbs. 0.6oz. 118.474017gh; 29.00 BMI Method:Stated Progress/Results/Core Measures Results/Orders My Orders Orders - PHOEBE RODRIGUEZ APRN Wrist, Right, 3 Views Or More (12/25/22 11:49) Vital Signs/I&O 12/25/22 11:28 Temp 36.0 Pulse 75 Resp 16 B/P (MAP) 107/51 (69) Pulse Ox 97 O2 Delivery Room Air Blood Pressure Mean: 69 Departure Impression Primary Impression: Osteoarthritis Disposition: 01 HOME, SELF-CARE Condition: Stable Departure-Patient Inst. Decision time for Depature: 12:32 Referrals: CURTIS CONTEH MD (PCP) Primary Care Physician NATALIE SIERRA (Family) Primary Care Physician Patient Instructions: Osteoarthritis (DC) Add. Discharge Instructions: Take meloxicam 1 tablet daily with food. Follow-up with your primary care provider. Return for uncontrolled pain, redness or swelling at the joint, fevers, or any other new, concerning, or worsening symptoms. All discharge instructions reviewed with patient and/or family. Voiced understanding. Scripts Meloxicam (Meloxicam) 15 Mg Tablet 15 MG PO DAILY, #14 TAB 0 Refills Prov: PHOEBE RODRIGUEZ APRN 12/25/22 PHOEBE RODRIGUEZ APRN Dec 25, 2022 11:50
--- NOTE | 2022-12-25 12:20 | Diagnostic Imaging Report ---
INDICATION: Wrist pain. TECHNIQUE: AP, oblique and lateral views of right wrist are obtained with comparison made to study of 10/14/2022. FINDINGS: Advanced degenerative findings are again noted at the first carpometacarpal joint with associated articular surface irregularity and subluxation. Otherwise, there is no evidence of acute fracture or malalignment. There is mild widening of the scapholunate interval which is similar to previous study as well. IMPRESSION: Stable degenerative findings in the wrist without acute abnormality identified. Dictated by: Dictated on workstation # [id number]
[2022-12-25] MEDS ORDERED: MELO15TA39 PO (12:34)
[2022-12-25] MEDS ORDERED: MELOXICAM 7.5 MG (MOBIC) TABLET PO ONE (12:45)
== END 2022-12-25 12:55 | disposition home or self-care (01) ==
LOC: EDUNIT# 11:13 → ER 11:15
DX: M19.041 Primary osteoarthritis, right hand (principal)
CPT/HCPCS: 73110

== ENCOUNTER → 2023-01-03 | Outpatient (CLI) | payer MEDICARE ==
[~2023-01-03] MED LIST changes: +MELO15TA39 PO
--- NOTE | 2023-01-03 17:52 | Diagnostic Imaging Report ---
INDICATION: Thyroid nodule. TECHNIQUE: Grayscale sonographic images of the thyroid gland. CORRELATION STUDY: 04/12/2022. FINDINGS: RIGHT LOBE: Enlarged at 6.2 x 1.7 x 2.2 cm, previously 6.0 x 1.9 x 2.4 cm. Fairly heterogeneous and nodular echotexture throughout the right lobe. Definitive discrete mass is not demonstrated. LEFT LOBE: 4.3 x 1.7 x 1.8 cm, previously 4.6 x 1.6 x 2.1 cm. There is a small hyperechoic nodule centrally in the left thyroid lobe, currently 9 x 4 x 3 mm (previously 11 x 6 x 4 mm, without adverse change). Complex heterogeneous but apparently solid nodule of left thyroid isthmus, 12 x 10 x 13 mm (previously 15 x 14 x 10 mm, relatively stable). IMPRESSION: 1. Enlarged right thyroid lobe with grossly stable left lobe and isthmus nodule. Continued follow-up ultrasound in approximately one year. (Normal gland size: 4-5 x 2 x 2 cm) Dictated by: Dictated on workstation # [id number]
== END ==
LOC: RAD 14:09
PROVIDERS: ATTEND Internal Medicine Endocrinology, Diabetes & Metabolism
DX: E04.1 Nontoxic single thyroid nodule (principal)
CPT/HCPCS: 76536

== ENCOUNTER 2023-04-18 19:30 | Outpatient (CLI) | payer MEDICARE, OTHER | END 2023-04-19 06:15 | disposition home or self-care (01) | LOC: SLEEP 19:30 | PROVIDERS: ATTEND Internal Medicine Critical Care Medicine | DX: G47.33 Obstructive sleep apnea (adult) (pediatric) (principal); R06.83 Snoring | CPT/HCPCS: 95810 ==

== ENCOUNTER 2023-04-21 13:40 | Emergency (ER) | payer MEDICARE ==
[~2023-04-21] VITALS: Ht 170.2 cm; Wt 89.0 kg
[2023-04-21] MEDS ORDERED: KETOROLAC 60 MG/2 ML VIAL IM STA (14:04)
--- NOTE | 2023-04-21 14:38 | ED Upper Extremity ---
General Chief Complaint: Upper Extremity Stated Complaint: RT HAND PAIN | SWELLING Nursing Triage Note: PT AMB TO ED BY POV WITH C/O R HAND PAIN AND EDEMA. DENIES INJURY. PAIN BEGAN YESTERDAY, EDEMA TODAY. Source: patient Exam Limitations: no limitations History of Present Illness Date Seen by Provider: Apr 21, 2023 Time Seen by Provider: 14:00 Initial Comments Here with report of right hand swelling. States that she woke up with it like this. Denies any specific injury. Does have history of carpal tunnel syndrome. Reports pain is from wrist to knuckles on the second through fifth MCP area. Denies fever or chills. She is on Eliquis for blood clots and was off that for about a month but has been on it for the last week. Notes redness but no other discoloration. No reported or noted wounds. Not better with Tylenol. Onset: this morning Severity: moderate Pain/Injury Location: right hand Method of Injury: unknown Modifying Factors: Worse With Movement Allergies and Home Medications Allergies Coded Allergies: No Known Drug Allergies (Verified , 10/30/22) Patient Home Medication List Home Medication List Reviewed: Yes Albuterol Sulfate (Ventolin Hfa) 1 Puff Puff, 2 PUFF INH QID PRN for SHORTNESS OF BREATH, (Reported) Entered as Reported by: SHELLY NIX on 10/27/18 1006 Alendronate Sodium (Alendronate Sodium) 10 Mg Tablet, 10 MG PO DAILY, (Reported) Entered as Reported by: DEZ GONZALEZ on 10/23/22 0913 Aspirin (Aspirin EC) 81 Mg Tablet.dr, 81 MG PO DAILY, (Reported) Entered as Reported by: SHELLY NIX on 10/27/18 1006 Atorvastatin Calcium (Atorvastatin Calcium) 10 Mg Tablet, 10 MG PO HS, (Reported) Entered as Reported by: SYLVIA MCDANIELS on 02/16/16 1006 Budesonide/Formoterol Fumarate (Symbicort 160-4.5 Mcg Inhaler) 160 Mcg-4.5 Mcg/Actuation Hfa.aer.ad, 2 PUFF IH BID PRN for SHORTNESS OF BREATH, (Reported) Entered as Reported by: SHELLY NIX on 10/27/18 1006 Bupropion HCl (Bupropion Xl) 150 Mg Tab.er.24h, 150 MG PO DAILY, (Reported) Entered as Reported by: DEZ GONZALEZ on 10/23/22 0913 Cetirizine HCl (Zyrtec) 10 Mg Tablet, 10 MG PO DAILY, (Reported) Entered as Reported by: SHELLY NIX on 10/27/18 1006 Cholecalciferol (Vitamin D3) (Vitamin D3) 25 Mcg Tablet, 25 MCG PO DAILY, (Reported) Entered as Reported by: IVELISSE WALLACE on 10/29/21 1236 Cyclobenzaprine HCl (Cyclobenzaprine HCl) 10 Mg Tablet, 10 MG PO TID PRN for MUSCLE SPASMS, (Reported) Entered as Reported by: ONEAL VOGT on 10/30/22 1541 Docusate Sodium (Docusate Sodium) 100 Mg Capsule, 100 MG PO DAILY PRN for CONSTIPATION-1ST LINE, (Reported) Entered as Reported by: DEZ GONZALEZ on 10/23/22 09 Enoxaparin Sodium (Lovenox) 100 Mg/Ml Syringe, 100 MG SQ Q12H Prescribed by: KARLIE RAMSEY on 11/01/22 0953 Famotidine (Acid [employer]er (FAMOTIDINE)) 20 Mg Tablet, 20 MG PO BID, (Reported) Entered as Reported by: IVELISSE WALLACE on 10/29/21 1236 Furosemide (Furosemide) 20 Mg Tablet, 20 MG PO FR FARZAD, (Reported) Entered as Reported by: IVELISSE WALLACE on 10/29/21 1236 Ipratropium/Albuterol Sulfate (Iprat-Albut 0.5-3(2.5) mg/3 ml) 0.5 Mg-3 Mg (2.5 Mg Base)/3 Ml Ampul.neb, 3 ML IH Q4H PRN for SHORTNESS OF BREATH, (Reported) Entered as Reported by: DEZ GONZALEZ on 10/23/22 0913 Levothyroxine Sodium (Levothyroxine Sodium) 100 Mcg Tablet, 100 MCG PO DAILY, (Reported) Entered as Reported by: IVELISSE WALLACE on 10/29/21 1236 Meloxicam (Meloxicam) 15 Mg Tablet, 15 MG PO DAILY Prescribed by: Brianne Pickard on 12/25/22 1234 Montelukast Sodium (Montelukast Sodium) 10 Mg Tablet, 10 MG PO HS, (Reported) Entered as Reported by: IVELISSE WALLACE on 08/04/15 1636 Nortriptyline HCl (Nortriptyline HCl) 25 Mg Capsule, 25 MG PO HS, (Reported) Entered as Reported by: IVELISSE WALLACE on 10/29/21 1236 [place]-3/Dha/Epa/Dpa/Fish Oil ([place]-3 1,050 mg Softgel) 1 Each Capsule, 1 CAP PO DAILY, (Reported) Entered as Reported by: SHELLY NIX on 10/27/18 1006 Potassium Chloride (Potassium Chloride) 10 Meq Capsule.er, 10 MEQ PO TUE,FR, (Reported) Entered as Reported by: ONEAL VOGT on 10/30/22 1541 Tramadol HCl (Tramadol HCl) 50 Mg Tablet, 50-100 MG PO TID PRN for PAIN-MODERATE (5-7), (Reported) Entered as Reported by: ONEAL VOGT on 10/30/22 1541 Warfarin Sodium (Warfarin Sodium) 3 Mg Tablet, 3 MG PO HS, (Reported) Entered as Reported by: DEZ GONZALEZ on 10/23/22 0913 Review of Systems Constitutional: see HPI; No chills, No fever Respiratory: no symptoms reported Cardiovascular: no symptoms reported Musculoskeletal: joint pain, joint swelling, muscle pain, muscle stiffness Skin: change in color; No lesions Past Xkugzsb-Dsivot-Soyatq Hx Patient Social History Tobacco Use?: No Smoking Status: Former Smoker Use of E-Cig and/or Vaping dev: No Substance use?: No Alcohol Use?: Yes Alcohol Frequency: Once in a while Pt feels they are or have been: No Immunizations Up To Date Tetanus Booster (TDap): Less than 5yrs Influenza Vaccine Up-to-Date: No; Not Current First/Initial COVID19 Vaccinat: 2020 Second COVID19 Vaccination Giovanny: 2020 Third COVID19 Vaccination Date: 2020 Seasonal Allergies Seasonal Allergies: Yes Past Medical History Surgery/Hospitalization HX: hernia, cabg x1, CATARACTS, cholecystectomy, hysterectomy, t/a, cad, htn, gerd, copd, ASTHMA LEFT FEMUR FX/ORIF/PLATES BILAT TKR Surgeries: Yes (HIATAL HERNIA, LEFT TKR, SINGLE BYPASS; CATARACTS, L femur fx) Abdominal, Adenoidectomy, Appendectomy, Cardiac, CABG, Eye Surgery, Gallbladder, Hysterectomy, Joint Replacement, Orthopedic, Tonsillectomy Respiratory: Yes (CPAP, pulmonary hypertension) Asthma, Sleep Apnea, COPD Currently Using CPAP: Yes Currently Using BIPAP: No Cardiac: Yes (HX BY-PASS X1 2006;DVT'S LEFT LEG; CHRONIC LEFT LEG SWELLING) Chronic Edema/Swelling, Coronary Artery Disease, Deep Vein Thrombosis, High Cholesterol, Hypertension, Valvular Heart Disease Neurological: No Reproductive Disorders: No Female Reproductive Disorders: 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 Sexually Transmitted Disease: No HIV/AIDS: No Genitourinary: Yes Kidney Infection, Bladder Infection Gastrointestinal: Yes Gastroesophageal Reflux, Hiatal Hernia Musculoskeletal: Yes (right knee pain, limited mobility) Arthritis, Fractures Endocrine: Yes Hypothyroidsim HEENT: Yes Cataract Loss of Vision: Denies Cancer: Yes (hysterectomy in 1989) Cervical Did You Recieve Any Treatments: Yes What Type of Treatment Did You: Surgical Intervention Psychosocial: No Integumentary: No Blood Disorders: Yes (hx of blood clots in 1989 pelvic area & left calf ) Family Medical History Reviewed Nursing Family Hx Alzheimer's disease 19 MOTHER, , Onset:Unknown G8 BROTHER, , Onset:Unknown Diabetes mellitus G8 BROTHER, Onset:Unknown FH: CHF (congestive heart failure) 19 MOTHER, , Onset:Unknown FH: brain aneurysm 19 FATHER, , Onset:Unknown FH: brain aneurysm 19 FATHER, , Onset:Unknown Hypertension 19 FATHER, , Onset:Unknown 19 MOTHER, , Onset:Unknown G8 BROTHER, Onset:Unknown Myocardial infarction 19 FATHER, , Onset:Unknown 19 MOTHER, , Onset:Unknown Prostate cancer G8 BROTHER, Onset:Unknown TIAs 19 MOTHER, , Onset:Unknown No Pertinent Family Hx Physical Exam Vital Signs Vital Signs - First Documented 04/21/23 13:47 Temp 36.8 Pulse 79 Resp 16 B/P (MAP) 147/68 (94) Pulse Ox 99 O2 Delivery Room Air Capillary Refill : Less Than 3 Seconds Height, Weight, BMI Height: 5'7.00" Weight: 247lbs. 0.6oz. 118.008270mw; 30.00 BMI Method:Stated General Appearance: WD/WN, no apparent distress Elbow/Forearm: normal inspection, Right Wrist: Yes normal inspection Hand: Right, soft tissue tenderness, stiffness, swelling Neurologic/Psychiatric: alert, oriented x 3 Skin: warm/dry, other (Does have some swelling and mild erythema to the right hand that is blanchable with good cap refill) Progress/Results/Core Measures Results/Orders My Orders Orders - MILLA TORRES MD Ketorolac Injection (Toradol Injection) (04/21/23 14:04) Hand, Right, 3 Views (04/21/23 14:04) Lortab 5mg Po (04/21/23 15:15) Vital Signs/I&O 04/21/23 13:47 Temp 36.8 Pulse 79 Resp 16 B/P (MAP) 147/68 (94) Pulse Ox 99 O2 Delivery Room Air Blood Pressure Mean: 94 Progress Progress Note : Progress Note Seen and evaluated. X-ray right hand ordered. Toradol 60 mg IM ordered. Differential diagnosis includes pathological fracture, osteoarthritis, carpal tunnel. We will not be able to use long-term NSAIDs due to current Eliquis use. We will consider oral steroids pending x-ray. Monitor patient. 1512: I have reviewed the hand x-ray and see no acute fracture on my interpretation. Radiology report reviewed. Patient states pain is still present. We will give 1 dose of hydrocodone. Outpatient prescription for prednisone given. OTC medications discussed. Discharged home with return precautions. Patient verbalized understanding instructions and agreement with plan. Diagnostic Imaging Diagonstic Imaging: Xray Plain Films/CT/US/NM/MRI: hand Comments NAME: CHEVY ANDERSON MED REC#: [id number] PT STATUS: REG ER : 1950 PHYSICIAN: MILLA TORRES MD ADMIT DATE: 04/21/23/ER Draft Date of Exam:04/21/23 HAND, RIGHT, 3 VIEWS INDICATION: Hand pain. 3 views were obtained FINDINGS: There is some degenerative changes of the DIP joints. There are also degenerative changes at the base of 1st metacarpal. There is no fracture or dislocation. Soft tissues are unremarkable. IMPRESSION: Degenerative changes as described otherwise unremarkable. Dictated on workstation # [id number] Dict: 04/21/23 1506 Trans: 04/21/23 1509 [facility] [id number] Interpreted by: MAIKEL SOSA MD Electronically signed by: Departure Impression Primary Impression: Right hand pain Additional Impression: Carpal tunnel syndrome, right Disposition: 01 HOME, SELF-CARE Condition: Stable Departure-Patient Inst. Decision time for Depature: 15:13 Referrals: JACINDA WINTERS MD (PCP) Primary Care Physician NATALIE SIERRA (Family) Primary Care Physician Patient Instructions: Hand Pain, Carpal Tunnel Syndrome (DC) Add. Discharge Instructions: All discharge instructions reviewed with patient and/or family. Voiced understanding. Use your wrist splint. You may take Tylenol/acetaminophen 1000 mg every 6 hours as needed for pain. Take other medications as prescribed. Follow-up with your doctor for recheck and further evaluation later this week or early next week as needed. Return for worse pain, swelling, numbness, weakness or other concerns as needed. Scripts Prednisone (Prednisone) 20 Mg Tab 40 MG PO DAILY, #10 TAB 0 Refills Prov: MILLA TORRES MD 04/21/23 MILLA TORRES MD Apr 21, 2023 14:38
--- NOTE | 2023-04-21 15:10 | Diagnostic Imaging Report ---
INDICATION: Hand pain. 3 views were obtained FINDINGS: There is some degenerative changes of the DIP joints. There are also degenerative changes at the base of 1st metacarpal. There is no fracture or dislocation. Soft tissues are unremarkable. IMPRESSION: Degenerative changes as described otherwise unremarkable. Dictated by: Dictated on workstation # [id number]
[2023-04-21] MEDS ORDERED: PRD20T PO (15:14)
[2023-04-21] MEDS ORDERED: HYDROcodone/APAP 5 MG/325 MG (LORTAB) TAB PO ONE (15:15)
[2023-04-21 15:31] VITALS: BP 139/78
== END 2023-04-21 15:31 | disposition home or self-care (01) ==
LOC: EDUNIT# 13:40 → ER 13:42
DX: G56.01 Carpal tunnel syndrome, right upper limb (principal); G47.30 Sleep apnea, unspecified; Z79.02 Long term (current) use of antithrombotics/antiplatelets; Z87.39 Personal history of other diseases of the musculoskeletal system and connective tissue; Z87.891 Personal history of nicotine dependence; Z99.89 Dependence on other enabling machines and devices
CPT/HCPCS: 73130

== ENCOUNTER 2023-05-25 12:36 | Emergency (ER) | payer MEDICARE ==
[~2023-05-25] VITALS: Ht 170 cm; Wt 89.0 kg
[~2023-05-25 12:36] MED LIST changes: -POTA10CA44 PO; +POTA10CA84 PO; +PRD20T PO
[2023-05-25 12:40] VITALS: BP 168/78
[2023-05-25] MEDS ORDERED: HYDROcodone/APAP 7.5 MG/325 MG (LORTAB, LORCET PLUS) TABLET PO STA (12:52)
[2023-05-25 13:00] LABS: BASOPHILS % (AUTO) 1 % (0-10); EOSINOPHILS # (AUTO) 0.2 10^3/uL (0.0-0.3); EOSINOPHILS % (AUTO) 3 % (0-10); HEMATOCRIT 38 % (35-52); HEMOGLOBIN 12.4 g/dL (11.5-16.0); LYMPHOCYTES # (AUTO) 0.9 10^3/uL (1.0-4.0); LYMPHOCYTES % (AUTO) 17 % (12-44); MEAN CORPUSCULAR HEMOGLOBIN 30 pg (25-34); MEAN CORPUSCULAR HGB CONC 33 g/dL (32-36); MEAN CORPUSCULAR VOLUME 92 fL (80-99); MEAN PLATELET VOLUME 10.2 fL (9.0-12.2); MONOCYTES # (AUTO) 0.4 10^3/uL (0.0-1.0); MONOCYTES % (AUTO) 9 % (0-12); NEUTROPHILS # (AUTO) 3.5 10^3/uL (1.8-7.8); NEUTROPHILS % (AUTO) 70 % (42-75); PLATELET COUNT 263 10^3/uL (130-400)
[2023-05-25] MEDS ORDERED: methylPREDNISolone 125 MG (Solu-MEDROL) VIAL IVP ONE (13:00)
--- NOTE | 2023-05-25 13:00 | ED General ---
General Chief Complaint: General Problems/Pain Stated Complaint: SWELLING AND PAIN IN HANDS Nursing Triage Note: COMPLAINS OF GENERALIZED PAIN ALL OVER WITH SWELLING TO HER RIGHT AND LEFT HANDS. PT STATES IT ALL BECAME WORSE AFTER STARTING LEVAQUIN FOR A SINUS INFECTION LAST WEEK. Source of Information: Patient Exam Limitations: No Limitations History of Present Illness Date Seen by Provider: May 25, 2023 Time Seen by Provider: 12:57 Initial Comments Patient is a 72-year-old female with a history of osteoarthritis, carpal tunnel syndrome who presents ED with bilateral hand pain and swelling, bilateral wrist pain, bilateral shoulder pain. Symptoms started last Friday. Started Levaq uin for her sinus infection. She states that she has a history of similar type pain and swelling in her hands however she has not had the pain in her wrist or shoulder. She has been taken Tylenol at home without much improvement. Took a hydrocodone from her daughter with very minimal improvement. She states she was seen here a month ago for swelling in her hands. She had a negative x-ray. She has not followed with her primary care physician but is scheduled follow-up this week. Denies history of autoimmune diseases. She denies of any leg swelling, calf pain, fever, chills, abdominal pain, shortness of breath, headache, dizzi ness, sore throat, ear pain. She denies of any injuries Allergies and Home Medications Allergies Coded Allergies: No Known Drug Allergies (Verified , 10/30/22) Patient Home Medication List Home Medication List Reviewed: Yes Albuterol Sulfate (Ventolin Hfa) 1 Puff Puff, 2 PUFF INH QID PRN for SHORTNESS OF BREATH, (Reported) Entered as Reported by: SHELLY NIX on 10/27/18 1006 Alendronate Sodium (Alendronate Sodium) 10 Mg Tablet, 10 MG PO DAILY, (Reported) Entered as Reported by: DEZ GONZALEZ on 10/23/22 0913 Aspirin (Aspirin EC) 81 Mg Tablet.dr, 81 MG PO DAILY, (Reported) Entered as Reported by: SHELLY NIX on 10/27/18 1006 Atorvastatin Calcium (Atorvastatin Calcium) 10 Mg Tablet, 10 MG PO HS, (Reported) Entered as Reported by: SYLVIA MCDANIELS on 02/16/16 1006 Budesonide/Formoterol Fumarate (Symbicort 160-4.5 Mcg Inhaler) 160 Mcg-4.5 Mcg/Actuation Hfa.aer.ad, 2 PUFF IH BID PRN for SHORTNESS OF BREATH, (Reported) Entered as Reported by: SHELLY NIX on 10/27/18 1006 Bupropion HCl (Bupropion Xl) 150 Mg Tab.er.24h, 150 MG PO DAILY, (Reported) Entered as Reported by: DEZ GONZALEZ on 10/23/22 0913 Cetirizine HCl (Zyrtec) 10 Mg Tablet, 10 MG PO DAILY, (Reported) Entered as Reported by: SHELLY NIX on 10/27/18 1006 Cholecalciferol (Vitamin D3) (Vitamin D3) 25 Mcg Tablet, 25 MCG PO DAILY, (Reported) Entered as Reported by: IVELISSE WALLACE on 10/29/21 1236 Cyclobenzaprine HCl (Cyclobenzaprine HCl) 10 Mg Tablet, 10 MG PO TID PRN for MUSCLE SPASMS, (Reported) Entered as Reported by: ONEAL VOGT on 10/30/22 1541 Docusate Sodium (Docusate Sodium) 100 Mg Capsule, 100 MG PO DAILY PRN for CONSTIPATION-1ST LINE, (Reported) Entered as Reported by: DEZ GONZALEZ on 10/23/22 0913 Enoxaparin Sodium (Lovenox) 100 Mg/Ml Syringe, 100 MG SQ Q12H Prescribed by: KARLIE RAMSEY on 11/01/22 0953 Famotidine (Acid Mail Sorting Supervisor (FAMOTIDINE)) 20 Mg Tablet, 20 MG PO BID, (Reported) Entered as Reported by: IVELISSE WALLACE on 10/29/21 1236 Furosemide (Furosemide) 20 Mg Tablet, 20 MG PO FR FARZAD, (Reported) Entered as Reported by: IVELISSE WALLACE on 10/29/21 1236 Hydrocodone/Acetaminophen (Hydrocodone-Acetamin 5-325 mg) 5 Mg-325 Mg Tablet, 1 TAB PO Q4H PRN for PAIN-MODERATE (5-7) Prescribed by: HARSH CHAVIS on 05/25/23 1411 Ipratropium/Albuterol Sulfate (Iprat-Albut 0.5-3(2.5) mg/3 ml) 0.5 Mg-3 Mg (2.5 Mg Base)/3 Ml Ampul.neb, 3 ML IH Q4H PRN for SHORTNESS OF BREATH, (Reported) Entered as Reported by: DEZ GONZALEZ on 10/23/22 0913 Levothyroxine Sodium (Levothyroxine Sodium) 100 Mcg Tablet, 100 MCG PO DAILY, (Reported) Entered as Reported by: IVELISSE WALLACE on 10/29/21 1236 Meloxicam (Meloxicam) 15 Mg Tablet, 15 MG PO DAILY Prescribed by: Brianne Pickard on 12/25/22 1234 Montelukast Sodium (Montelukast Sodium) 10 Mg Tablet, 10 MG PO HS, (Reported) Entered as Reported by: IVELISSE WALLACE on 08/04/15 1636 Nortriptyline HCl (Nortriptyline HCl) 25 Mg Capsule, 25 MG PO HS, (Reported) Entered as Reported by: IVELISSE WALLACE on 10/29/21 1236 [place]-3/Dha/Epa/Dpa/Fish Oil ([place]-3 1,050 mg Softgel) 1 Each Capsule, 1 CAP PO DAILY, (Reported) Entered as Reported by: SHELLY NIX on 10/27/18 1006 Potassium Chloride (Potassium Chloride) 10 Meq Capsule.er, 10 MEQ PO FR FARZAD, (Reported) Entered as Reported by: ONEAL VOGT on 10/30/22 1541 Prednisone (Prednisone) 20 Mg Tab, 40 MG PO DAILY Prescribed by: MILLA TORRES on 04/21/23 1514 Prednisone (Prednisone) 20 Mg Tab, 40 MG PO DAILY Prescribed by: HARSH CHAVIS on 05/25/23 1411 Tramadol HCl (Tramadol HCl) 50 Mg Tablet, 50-100 MG PO TID PRN for PAIN-MODERATE (5-7), (Reported) Entered as Reported by: ONEAL VOGT on 10/30/22 1541 Warfarin Sodium (Warfarin Sodium) 3 Mg Tablet, 3 MG PO HS, (Reported) Entered as Reported by: DEZ GONZALEZ on 10/23/22 0913 Review of Systems Review of Systems Constitutional: No chills, No diaphoresis EENTM: No hearing loss, No ear pain, No blurred vision, No vision loss, No hoarseness, No mouth pain, No mouth swelling Respiratory: No cough Cardiovascular: No chest pain, No edema Genitourinary: No decreased output, No discharge, No dysuria, No frequency Musculoskeletal: No back pain; joint pain, joint swelling, muscle pain Skin: No change in color All Other Systems Reviewed Negative Unless Noted: Yes Past Tjhgori-Hebute-Qmpdep Hx Patient Social History Tobacco Use?: Yes Smoking Status: Former Smoker Substance use?: Yes Additional substance use comme: HAD A GUMMIE ON May Alcohol Use?: No Immunizations Up To Date Tetanus Booster (TDap): Less than 5yrs First/Initial COVID19 Vaccinat: 2020 Second COVID19 Vaccination Giovanny: 2020 Third COVID19 Vaccination Date: 2020 Seasonal Allergies Seasonal Allergies: Yes Past Medical History Surgery/Hospitalization HX: hernia, cabg x1, CATARACTS, cholecystectomy, hysterectomy, t/a, cad, htn, gerd, copd, ASTHMA LEFT FEMUR FX/ORIF/PLATES BILAT TKR Surgeries: Yes (HIATAL HERNIA, LEFT TKR, SINGLE BYPASS; CATARACTS, L femur fx) Abdominal, Adenoidectomy, Appendectomy, Cardiac, CABG, Eye Surgery, Gallbladder, Hysterectomy, Joint Replacement, Orthopedic, Tonsillectomy Respiratory: Yes (CPAP, pulmonary hypertension) Asthma, Sleep Apnea, COPD Currently Using CPAP: Yes Currently Using BIPAP: No Cardiac: Yes (HX BY-PASS X1 2006;DVT'S LEFT LEG; CHRONIC LEFT LEG SWELLING) Chronic Edema/Swelling, Coronary Artery Disease, Deep Vein Thrombosis, High Cholesterol, Hypertension, Valvular Heart Disease Neurological: No Reproductive Disorders: No Female Reproductive Disorders: Denies 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 Sexually Transmitted Disease: No HIV/AIDS: No Genitourinary: Yes Kidney Infection, Bladder Infection Gastrointestinal: Yes Gastroesophageal Reflux, Hiatal Hernia Musculoskeletal: Yes (right knee pain, limited mobility) Arthritis, Fractures Endocrine: Yes Hypothyroidsim HEENT: Yes Cataract Loss of Vision: Denies Cancer: Yes (hysterectomy in 1989) Cervical Did You Recieve Any Treatments: Yes What Type of Treatment Did You: Surgical Intervention Psychosocial: No Integumentary: No Blood Disorders: Yes (hx of blood clots in 1989 pelvic area & left calf ) Family Medical History Alzheimer's disease 19 MOTHER, , Onset:Unknown G8 BROTHER, , Onset:Unknown Diabetes mellitus G8 BROTHER, Onset:Unknown FH: CHF (congestive heart failure) 19 MOTHER, , Onset:Unknown FH: brain aneurysm 19 FATHER, , Onset:Unknown FH: brain aneurysm 19 FATHER, , Onset:Unknown Hypertension 19 FATHER, , Onset:Unknown 19 MOTHER, , Onset:Unknown G8 BROTHER, Onset:Unknown Myocardial infarction 19 FATHER, , Onset:Unknown 19 MOTHER, , Onset:Unknown Prostate cancer G8 BROTHER, Onset:Unknown TIAs 19 MOTHER, , Onset:Unknown No Pertinent Family Hx Physical Exam Vital Signs Vital Signs - First Documented 05/25/23 12:40 Temp 36.7 Pulse 70 Resp 16 B/P (MAP) 168/78 (108) Pulse Ox 98 O2 Delivery Room Air Capillary Refill : Less Than 3 Seconds Height, Weight, BMI Height: 5'7.00" Weight: 247lbs. 0.6oz. [id number]; 30.00 BMI Method:Stated General Appearance: No Apparent Distress, WD/WN Eyes: Bilateral Eye Normal Inspection, Bilateral Eye PERRL, Bilateral Eye EOMI HEENT: PERRL/EOMI, TMs Normal, Normal ENT Inspection, Pharynx Normal Neck: Full Range of Motion, Normal Inspection, Non Tender, Supple Respiratory: Chest Non Tender, Lungs Clear, Normal Breath Sounds, No Accessory Muscle Use, No Respiratory Distress Cardiovascular: Regular Rate, Rhythm, No Edema, No Gallop, No JVD Gastrointestinal: Normal Bowel Sounds, No Organomegaly, No Pulsatile Mass Extremity: Other (Swelling bilateral hands second and third MCP joints. No erythema, bruising. Bilateral wrist tenderness without swelling. Pain with passive range of motion bilateral shoulders) Skin: Normal Color Progress/Results/Core Measures Suspected Sepsis SIRS Temperature: Pulse: 70 Respiratory Rate: 16 Laboratory Tests 05/25/23 12:50: White Blood Count 5.0 Blood Pressure 168 /78 Mean: 108 Laboratory Tests 05/25/23 12:50: Creatinine 1.02, Platelet Count 263, Total Bilirubin 0.8 Results/Orders Lab Results Laboratory Tests Test 05/25/23 12:50 Range/Units White Blood Count 5.0 4.3-11.0 10^3/uL Red Blood Count 4.14 3.80-5.11 10^6/uL Hemoglobin 12.4 11.5-16.0 g/dL Hematocrit 38 35-52 % Mean Corpuscular Volume 92 80-99 fL Mean Corpuscular Hemoglobin 30 25-34 pg Mean Corpuscular Hemoglobin Concent 33 32-36 g/dL Red Cell Distribution Width 15.0 H 10.0-14.5 % Platelet Count 263 130-400 10^3/uL Mean Platelet Volume 10.2 9.0-12.2 fL Immature Granulocyte % (Auto) 0 % Neutrophils (%) (Auto) 70 42-75 % Lymphocytes (%) (Auto) 17 12-44 % Monocytes (%) (Auto) 9 0-12 % Eosinophils (%) (Auto) 3 0-10 % Basophils (%) (Auto) 1 0-10 % Neutrophils # (Auto) 3.5 1.8-7.8 10^3/uL Lymphocytes # (Auto) 0.9 L 1.0-4.0 10^3/uL Monocytes # (Auto) 0.4 0.0-1.0 10^3/uL Eosinophils # (Auto) 0.2 0.0-0.3 10^3/uL Basophils # (Auto) 0.0 0.0-0.1 10^3/uL Immature Granulocyte # (Auto) 0.0 0.0-0.1 10^3/uL Erythrocyte Sedimentation Rate 59 H 0-30 MM/HR Sodium Level 140 135-145 MMOL/L Potassium Level 4.1 3.6-5.0 MMOL/L Chloride Level 108 H 98-107 MMOL/L Carbon Dioxide Level 21 21-32 MMOL/L Anion Gap 11 5-14 MMOL/L Blood Urea Nitrogen 21 H 7-18 MG/DL Creatinine 1.02 0.60-1.30 MG/DL Estimat Glomerular Filtration Rate 59 BUN/Creatinine Ratio 21 Glucose Level 107 H 70-105 MG/DL Calcium Level 9.2 8.5-10.1 MG/DL Corrected Calcium 9.2 8.5-10.1 MG/DL Total Bilirubin 0.8 0.1-1.0 MG/DL Aspartate Amino Transf (AST/SGOT) 13 5-34 U/L Alanine Aminotransferase (ALT/SGPT) 9 0-55 U/L Alkaline Phosphatase 82 40-136 U/L C-Reactive Protein High Sensitivity 3.71 H 0.00-0.50 MG/DL Total Protein 7.1 6.4-8.2 GM/DL Albumin 4.0 3.2-4.5 GM/DL My Orders Orders - EMERITA YANES Cbc With Automated Diff (05/25/23 12:52) Comprehensive Metabolic Panel (05/25/23 12:52) Hs C Reactive Protein (05/25/23 12:52) Erythrocyte Sedimentation Rate (05/25/23 12:52) Methylprednisolone Sod Succ (Solu-Medrol (05/25/23 13:00) Hydrocodone/Apap 7.5/325 Tab (Lortab 7. (05/25/23 12:52) Medications Given in ED Current Medications Medications Dose Ordered Sig/Sukhi Route Start Time Stop Time Status Last Admin Dose Admin Methylprednisolone Sodium Succinate 125 mg ONCE ONCE IVP 05/25/23 13:00 05/25/23 13:01 DC 05/25/23 13:12 125 MG Vital Signs/I&O 05/25/23 12:40 Temp 36.7 Pulse 70 Resp 16 B/P (MAP) 168/78 (108) Pulse Ox 98 O2 Delivery Room Air Capillary Refill : Less Than 3 Seconds Blood Pressure Mean: 108 Departure Communication (PCP) Patient is a 72-year-old female who presents ED with multiple joint pain. Similar type symptoms in the past. Reviewed previous ER visits, H&P, lab testing. Was seen here last April had a x-ray right hand secondary to pain and swelling. Similar symptoms in the past. Denies history of autoimmune disease such as RA. History of osteoarthritis. She does not take NSAIDs secondary to being on Eliquis. Patient does have some notable swelling bilateral hands on the dorsum side of the second and third MCP joint. Bilateral wrist tenderness without erythema or warmth. Bilateral shoulder discomfort with most range of motion. History of bilateral total knee replacements. Vital signs stable. No history of gout. She is currently on Levaquin since last Friday secondary to sinus infection. This could contribute to bone and joint pain however she had symptoms prior in the past. CBC, CMP, ESR and CRP lab work was drawn. She had ESR 59 CRP at 3 nonspecific but slightly elevated. Normal white blood count. This does not appear to be infectious. Concern for more inflammatory. Received IV Solu-Medrol and a dose of hydrocodone. Discussed with patient she needs further testing with further lab work such as anti-CCP, RA factor. This can be done outpatient. Will discharge with taper steroid. Hydrocodone as needed. May consider anti-inflammatory periodically but avoid using excessively secondary to being on anticoagulant. Discussed with patient anti-inflammatories do work well for inflammatory spots. If any worsening symptoms return back to ED for further evaluation. No evidence suggesting kidney failure. No evidence of rash. No oral lesions. Hemodynamically stable. Denies being bit by tick Impression Primary Impression: Joint pain Disposition: HOME, SELF-CARE Condition: Stable Departure-Patient Inst. Decision time for Depature: 14:09 Referrals: JACINDA WINTERS MD (PCP) Primary Care Physician NATALIE SIERRA (Family) Primary Care Physician Patient Instructions: Joint Pain Add. Discharge Instructions: Recommend following up with your primary care physician this week for further evaluation. May consider anti-inflammatory periodically such as naproxen or ibuprofen. Be careful taking excessive amount due to the Eliquis. All discharge instructions reviewed with patient and/or family. Voiced understanding. Scripts Hydrocodone/Acetaminophen (Hydrocodone-Acetamin 5-325 mg) 5 Mg-325 Mg Tablet 1 TAB PO Q4H PRN for PAIN-MODERATE (5-7), #8 TAB Prov: EMERITA YANES 05/25/23 Prednisone (Prednisone) 20 Mg Tab 40 MG PO DAILY for 5 Days, #10 TAB Prov: EMERITA YANES 05/25/23 EMERITA YANES May 25, 2023 13:00
[2023-05-25 13:12] LABS: POTASSIUM 4.1 MMOL/L (3.6-5.0)
[2023-05-25 13:13] LABS: CALCIUM 9.2 MG/DL (8.5-10.1)
[2023-05-25 13:15] LABS: TOTAL PROTEIN 7.1 GM/DL (6.4-8.2)
[2023-05-25 13:16] LABS: BILIRUBIN,TOTAL 0.8 MG/DL (0.1-1.0)
[2023-05-25 13:18] LABS: CREATININE SERUM 1.02 MG/DL (0.60-1.30)
[2023-05-25] MEDS ORDERED: ACHD5005 PO (14:11)
[2023-05-25] MEDS ORDERED: PRD20T PO (14:11)
[2023-05-25 14:19] LABS: ERYTHROCYTE SEDIMENTATION RATE 59 MM/HR (0-30)
== END 2023-05-25 14:22 | disposition home or self-care (01) ==
LOC: EDUNIT# 12:36 → ER 12:39
DX: M25.532 Pain in left wrist (principal); M25.531 Pain in right wrist; M25.512 Pain in left shoulder; M25.511 Pain in right shoulder; M25.542 Pain in joints of left hand; M25.541 Pain in joints of right hand; M79.89 Other specified soft tissue disorders; G47.30 Sleep apnea, unspecified; J32.9 Chronic sinusitis, unspecified; Z79.899 Other long term (current) drug therapy; Z99.89 Dependence on other enabling machines and devices; Z87.891 Personal history of nicotine dependence; Z79.01 Long term (current) use of anticoagulants
CPT/HCPCS: 36415; 80053; 85025; 85652; 86141

== ENCOUNTER 2023-08-13 11:12 | Emergency (ER) | payer MEDICARE ==
[~2023-08-13] VITALS: Ht 170.1 cm; Wt 91.1 kg
[~2023-08-13 11:12] MED LIST changes: +FAMO-356 PO; -FAMO20TA3 PO; -MECL-149 PO; +MECL-291 PO
[2023-08-13] MEDS ORDERED: fentaNYL INJECTION 100 MCG/2 ML VIAL IVP STA (11:31)
[2023-08-13] MEDS ORDERED: NS IV 1000 ML 1,000 ML IV STA (11:31)
--- NOTE | 2023-08-13 11:37 | ED General ---
General Chief Complaint: General Problems/Pain Stated Complaint: WEAKNESS Nursing Triage Note: PT ARRIVED POV WITH CC OF SWELLING ALL OVER BODY AND WEAKNESS/PAIN EVERYWHERE. PT STATES THAT HER BODY FEELS LIKE IT IS ON FIRE. SYMPTOMS STARTED 3AM TODAY. Source of Information: Patient Exam Limitations: No Limitations History of Present Illness Date Seen by Provider: Aug 13, 2023 Time Seen by Provider: 11:34 Initial Comments Patient is a 72-year-old female with a history of coronary artery disease who presents ED with generalized weakness and fatigue, body pains. Symptoms started 2 days ago. She states her whole body hurts. She states she feels weak not able to get up and move around. Similar type symptoms since the first part of the year. Has been on multiple rounds of steroids recently finished a taper prednisone pack. She follows up with Dr. Johnson. She is trying to get into see a tractor engine mechanic for her symptoms as they are concerned that this may be autoimmune disease. She has pain in her hips, hands, shoulders and knees. She denies of any joint swelling. She is having swelling in her hands and feet worse yesterday. Denies history of CHF or diabetes. She denies of any recent tick bites. Denies of any current chest pain, cough, shortness of breath, abdominal pain, vomit, diarrhea or urinary symptoms or fever. She has been taking hydrocodone without much improvement. Allergies and Home Medications Allergies Coded Allergies: No Known Drug Allergies (Verified , 10/30/22) Patient Home Medication List Home Medication List Reviewed: Yes Albuterol Sulfate (Ventolin Hfa) 1 Puff Puff, 2 PUFF INH QID PRN for SHORTNESS OF BREATH, (Reported) Entered as Reported by: SHELLY NIX on 10/27/18 1006 Alendronate Sodium (Alendronate Sodium) 10 Mg Tablet, 10 MG PO DAILY, (Reported) Entered as Reported by: DZE GONZALEZ on 10/23/22 0913 Aspirin (Aspirin EC) 81 Mg Tablet.dr, 81 MG PO DAILY, (Reported) Entered as Reported by: SHELLY NIX on 10/27/18 1006 Atorvastatin Calcium (Atorvastatin Calcium) 10 Mg Tablet, 10 MG PO HS, (Reported) Entered as Reported by: SYLVIA MCDANIELS on 02/16/16 1006 Budesonide/Formoterol Fumarate (Symbicort 160-4.5 Mcg Inhaler) 160 Mcg-4.5 Mcg/Actuation Hfa.aer.ad, 2 PUFF IH BID PRN for SHORTNESS OF BREATH, (Reported) Entered as Reported by: SHELLY NIX on 10/27/18 1006 Bupropion HCl (Bupropion Xl) 150 Mg Tab.er.24h, 150 MG PO DAILY, (Reported) Entered as Reported by: DEZ GONZALEZ on 10/23/22 0913 Cetirizine HCl (Zyrtec) 10 Mg Tablet, 10 MG PO DAILY, (Reported) Entered as Reported by: SHELLY NIX on 10/27/18 1006 Cholecalciferol (Vitamin D3) (Vitamin D3) 25 Mcg Tablet, 25 MCG PO DAILY, (Reported) Entered as Reported by: IVELISSE WALLACE on 10/29/21 1236 Cyclobenzaprine HCl (Cyclobenzaprine HCl) 10 Mg Tablet, 10 MG PO TID PRN for MUSCLE SPASMS, (Reported) Entered as Reported by: ONEAL VOGT on 10/30/22 1541 Docusate Sodium (Docusate Sodium) 100 Mg Capsule, 100 MG PO DAILY PRN for CONSTIPATION-1ST LINE, (Reported) Entered as Reported by: DEZ GONZALEZ on 10/23/22 0913 Enoxaparin Sodium (Lovenox) 100 Mg/Ml Syringe, 100 MG SQ Q12H Prescribed by: KARLIE RAMSEY on 11/01/22 0953 Famotidine (Acid Shingle Cutter (FAMOTIDINE)) 20 Mg Tablet, 20 MG PO BID, (Reported) Entered as Reported by: IVELISSE WALLACE on 10/29/21 1236 Furosemide (Furosemide) 20 Mg Tablet, 20 MG PO FR FARZAD, (Reported) Entered as Reported by: IVELISSE WALLACE on 10/29/21 1236 Hydrocodone/Acetaminophen (Hydrocodone-Acetamin 5-325 mg) 5 Mg-325 Mg Tablet, 1 TAB PO Q4H PRN for PAIN-MODERATE (5-7) Prescribed by: HASRH CHAVIS on 05/25/23 1411 Ipratropium/Albuterol Sulfate (Iprat-Albut 0.5-3(2.5) mg/3 ml) 0.5 Mg-3 Mg (2.5 Mg Base)/3 Ml Ampul.neb, 3 ML IH Q4H PRN for SHORTNESS OF BREATH, (Reported) Entered as Reported by: DEZ GONZALEZ on 10/23/22 0913 Levothyroxine Sodium (Levothyroxine Sodium) 100 Mcg Tablet, 100 MCG PO DAILY, (Reported) Entered as Reported by: IVELISSE WALLACE on 10/29/21 1236 Meloxicam (Meloxicam) 15 Mg Tablet, 15 MG PO DAILY Prescribed by: Brianne Pickard on 12/25/22 1234 Montelukast Sodium (Montelukast Sodium) 10 Mg Tablet, 10 MG PO HS, (Reported) Entered as Reported by: IVELISSE WALLACE on 08/04/15 1636 Nortriptyline HCl (Nortriptyline HCl) 25 Mg Capsule, 25 MG PO HS, (Reported) Entered as Reported by: IVELISSE WALLACE on 10/29/21 1236 Tasley-3/Dha/Epa/Dpa/Fish Oil (Tasley-3 1,050 mg Softgel) 1 Each Capsule, 1 CAP PO DAILY, (Reported) Entered as Reported by: SHELLY NIX on 10/27/18 1006 Oxycodone HCl/Acetaminophen (Oxycodone-Acetaminophen 5-325) 5 Mg-325 Mg Tablet, 1 EACH PO Q4H PRN for PAIN-SEVERE Prescribed by: HARSH CHAVIS on 08/13/23 1251 Potassium Chloride (Potassium Chloride) 10 Meq Capsule.er, 10 MEQ PO FR FARZAD, (Reported) Entered as Reported by: ONEAL VOGT on 10/30/22 1541 Prednisone (Prednisone) 20 Mg Tab, 40 MG PO DAILY Prescribed by: MILLA TORRES on 04/21/23 1514 Prednisone (Prednisone) 20 Mg Tab, 40 MG PO DAILY Prescribed by: HARSH CHAVIS on 05/25/23 1411 Tramadol HCl (Tramadol HCl) 50 Mg Tablet, 50-100 MG PO TID PRN for PAIN-MODERATE (5-7), (Reported) Entered as Reported by: ONEAL VOGT on 10/30/22 1541 Warfarin Sodium (Warfarin Sodium) 3 Mg Tablet, 3 MG PO HS, (Reported) Entered as Reported by: DEZ GONZALEZ on 10/23/22 0913 Review of Systems Review of Systems Constitutional: malaise, weakness EENTM: No ear pain, No blurred vision, No double vision Respiratory: No cough, No dyspnea on exertion Cardiovascular: No chest pain Gastrointestinal: No abdominal pain, No diarrhea, No nausea, No vomiting Genitourinary: No decreased output, No discharge Musculoskeletal: No back pain; joint pain, muscle pain Skin: No change in color, No change in hair/nails Psychiatric/Neurological: Denies Anxiety, Denies Depressed All Other Systems Reviewed Negative Unless Noted: Yes Past Kjhmgok-Uqwkie-Elrwoa Hx Patient Social History Tobacco Use?: Yes Tobacco type used: Cigars Use of E-Cig and/or Vaping dev: Yes E-Cig or Vaping type used: Synthetic Cannabinoids Substance use?: No Alcohol Use?: Yes Immunizations Up To Date Tetanus Booster (TDap): Less than 5yrs First/Initial COVID19 Vaccinat: 2020 Second COVID19 Vaccination Giovanny: 2020 Third COVID19 Vaccination Date: 2020 Seasonal Allergies Seasonal Allergies: Yes Past Medical History Surgery/Hospitalization HX: hernia, cabg x1, CATARACTS, cholecystectomy, hysterectomy, t/a, cad, htn, gerd, copd, ASTHMA LEFT FEMUR FX/ORIF/PLATES BILAT TKR Surgeries: Yes (HIATAL HERNIA, LEFT TKR, SINGLE BYPASS; CATARACTS, L femur fx) Abdominal, Adenoidectomy, Appendectomy, Cardiac, CABG, Eye Surgery, Gallbladder, Hysterectomy, Joint Replacement, Orthopedic, Tonsillectomy Respiratory: Yes (CPAP, pulmonary hypertension) Asthma, Sleep Apnea, COPD Currently Using CPAP: Yes Currently Using BIPAP: No Cardiac: Yes (HX BY-PASS X1 2006;DVT'S LEFT LEG; CHRONIC LEFT LEG SWELLING) Chronic Edema/Swelling, Coronary Artery Disease, Deep Vein Thrombosis, High Cholesterol, Hypertension, Valvular Heart Disease Neurological: No Reproductive Disorders: No Female Reproductive Disorders: Denies 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 Sexually Transmitted Disease: No HIV/AIDS: No Genitourinary: Yes Kidney Infection, Bladder Infection Gastrointestinal: Yes Gastroesophageal Reflux, Hiatal Hernia Musculoskeletal: Yes (right knee pain, limited mobility) Arthritis, Fractures Endocrine: Yes Hypothyroidsim HEENT: Yes Cataract Loss of Vision: Denies Cancer: Yes (hysterectomy in 1989) Cervical Did You Recieve Any Treatments: Yes What Type of Treatment Did You: Surgical Intervention Psychosocial: No Integumentary: No Blood Disorders: Yes (hx of blood clots in 1990 pelvic area & left calf ) Family Medical History Alzheimer's disease 19 MOTHER, , Onset:Unknown G8 BROTHER, , Onset:Unknown Diabetes mellitus G8 BROTHER, Onset:Unknown FH: CHF (congestive heart failure) 19 MOTHER, , Onset:Unknown FH: brain aneurysm 19 FATHER, , Onset:Unknown FH: brain aneurysm 19 FATHER, , Onset:Unknown Hypertension 19 FATHER, , Onset:Unknown 19 MOTHER, , Onset:Unknown G8 BROTHER, Onset:Unknown Myocardial infarction 19 FATHER, , Onset:Unknown 19 MOTHER, , Onset:Unknown Prostate cancer G8 BROTHER, Onset:Unknown TIAs 19 MOTHER, , Onset:Unknown No Pertinent Family Hx Physical Exam Vital Signs Vital Signs - First Documented 08/13/23 11:21 Temp 37.8 Pulse 61 B/P (MAP) 155/77 (103) Pulse Ox 100 O2 Delivery Room Air Capillary Refill : Height, Weight, BMI Height: 5'7.00" Weight: 247lbs. 0.6oz. 118.752283ne; 31.00 BMI Method:Stated General Appearance: No Apparent Distress, WD/WN Eyes: Bilateral Eye Normal Inspection, Bilateral Eye PERRL, Bilateral Eye EOMI HEENT: PERRL/EOMI, TMs Normal, Normal ENT Inspection, Pharynx Normal Neck: Full Range of Motion, Normal Inspection, Non Tender, Supple Respiratory: Chest Non Tender, Lungs Clear, Normal Breath Sounds, No Accessory Muscle Use, No Respiratory Distress Cardiovascular: Regular Rate, Rhythm, No Edema, No Gallop, No JVD, No Murmur Gastrointestinal: Normal Bowel Sounds, No Organomegaly, No Pulsatile Mass, Non Tender Back: Normal Inspection, No CVA Tenderness, No Vertebral Tenderness Extremity: Normal Capillary Refill, Normal Range of Motion, Non Tender, Other (Diffuse upper and lower extremity tenderness. No erythema, swelling. No swelling of the joints. Neurovascular intact upper and lower extremity) Neurologic/Psychiatric: Alert, Oriented x3, No Motor/Sensory Deficits, Normal Mood/Affect Progress/Results/Core Measures Suspected Sepsis SIRS Temperature: Pulse: 61 Respiratory Rate: Laboratory Tests 08/13/23 11:50: White Blood Count 5.9 Blood Pressure 155 /77 Mean: 103 Laboratory Tests 08/13/23 11:50: Creatinine 1.01, Platelet Count 176, Total Bilirubin 0.9 Results/Orders Lab Results Laboratory Tests Test 08/13/23 11:30 08/13/23 11:50 08/13/23 12:13 08/13/23 12:28 Range/Units Influenza Type A (RT-PCR) Not Detected Not Detecte Influenza Type B (RT-PCR) Not Detected Not Detecte SARS-CoV-2 RNA (RT-PCR) Not Detected Not Detecte White Blood Count 5.9 4.3-11.0 10^3/uL Red Blood Count 4.03 3.80-5.11 10^6/uL Hemoglobin 12.6 11.5-16.0 g/dL Hematocrit 39 35-52 % Mean Corpuscular Volume 97 80-99 fL Mean Corpuscular Hemoglobin 31 25-34 pg Mean Corpuscular Hemoglobin Concent 32 32-36 g/dL Red Cell Distribution Width 15.9 H 10.0-14.5 % Platelet Count 176 130-400 10^3/uL Mean Platelet Volume 11.1 9.0-12.2 fL Immature Granulocyte % (Auto) 2 % Neutrophils (%) (Auto) 76 H 42-75 % Lymphocytes (%) (Auto) 15 12-44 % Monocytes (%) (Auto) 7 0-12 % Eosinophils (%) (Auto) 1 0-10 % Basophils (%) (Auto) 1 0-10 % Neutrophils # (Auto) 4.5 1.8-7.8 10^3/uL Lymphocytes # (Auto) 0.9 L 1.0-4.0 10^3/uL Monocytes # (Auto) 0.4 0.0-1.0 10^3/uL Eosinophils # (Auto) 0.1 0.0-0.3 10^3/uL Basophils # (Auto) 0.0 0.0-0.1 10^3/uL Immature Granulocyte # (Auto) 0.1 0.0-0.1 10^3/uL Percent Immature Platelet Fraction 2.6 0.0-7.6 % Erythrocyte Sedimentation Rate 48 H 0-30 MM/HR Sodium Level 138 135-145 MMOL/L Potassium Level 4.3 3.6-5.0 MMOL/L Chloride Level 105 98-107 MMOL/L Carbon Dioxide Level 21 21-32 MMOL/L Anion Gap 12 5-14 MMOL/L Blood Urea Nitrogen 24 H 7-18 MG/DL Creatinine 1.01 0.60-1.30 MG/DL Estimat Glomerular Filtration Rate 60 BUN/Creatinine Ratio 24 Glucose Level 112 H 70-105 MG/DL Calcium Level 8.8 8.5-10.1 MG/DL Corrected Calcium 9.0 8.5-10.1 MG/DL Magnesium Level 2.0 1.6-2.4 MG/DL Total Bilirubin 0.9 0.1-1.0 MG/DL Aspartate Amino Transf (AST/SGOT) 25 5-34 U/L Alanine Aminotransferase (ALT/SGPT) 17 0-55 U/L Alkaline Phosphatase 54 40-136 U/L Troponin I < 0.028 <0.028 NG/ML C-Reactive Protein High Sensitivity 4.01 H 0.00-0.50 MG/DL Total Protein 6.4 6.4-8.2 GM/DL Albumin 3.7 3.2-4.5 GM/DL Thyroid Stimulating Hormone (TSH) 8.51 H 0.35-4.94 UIU/ML Urine Color YELLOW Urine Clarity CLEAR Urine pH 7.0 5-9 Urine Specific [place] 1.015 L 1.016-1.022 Urine Protein NEGATIVE NEGATIVE Urine Glucose (UA) NEGATIVE NEGATIVE Urine Ketones NEGATIVE NEGATIVE Urine Nitrite NEGATIVE NEGATIVE Urine Bilirubin NEGATIVE NEGATIVE Urine Urobilinogen 1.0 < = 1.0 MG/DL Urine Leukocyte Esterase TRACE H NEGATIVE Urine RBC (Auto) NEGATIVE NEGATIVE Urine RBC NONE /HPF Urine WBC RARE /HPF Urine Squamous Epithelial Cells NONE /HPF Urine Crystals NONE /LPF Urine Bacteria NEGATIVE /HPF Urine Casts NONE /LPF Urine Mucus NEGATIVE /LPF Urine Culture Indicated NO B-Type Natriuretic Peptide 72.0 <100.0 PG/ML My Orders Orders - EMERITA YANES Cbc And Automated Diff (08/13/23 11:31) Comprehensive Metabolic Panel (08/13/23 11:31) Magnesium (08/13/23 11:31) Thyroid Stimulating Hormone (08/13/23 11:31) Hs C Reactive Protein (08/13/23 11:31) Erythrocyte Sedimentation Rate (08/13/23 11:31) Ns Iv 1000 Ml (Ns Iv 1000 Ml) (08/13/23 11:31) Bnp [place] (08/13/23 11:31) Troponin I [place] (08/13/23 11:31) Ekg Tracing (08/13/23 11:31) Covid 19 Inhouse Test (08/13/23 11:31) Influenza A And B By Pcr (08/13/23 11:31) Ua Culture If Indicated (08/13/23 11:31) Fentanyl Injection (Fentanyl Injection (08/13/23 11:31) Vital Signs/I&O 08/13/23 08/13/23 11:21 13:30 Temp 37.8 Pulse 61 56 B/P (MAP) 155/77 (103) 181/77 Pulse Ox 100 98 O2 Delivery Room Air Room Air Capillary Refill : Blood Pressure Mean: 103 ECG Comment Sinus bradycardia, 58 bpm, QRS duration 82 MS, QTc 381 MS Departure Communication (PCP) Patient presents ED with diffuse pain, joint pain swelling in her upper and lower extremities. She does not appear edematous. Diffuse pain throughout. No evidence of erythema. No evidence cellulitis. According to patient they are concerned for potential autoimmune process. She has been having similar type pain over the past year. Denies of any flulike symptoms. CBC, CMP, CRP, ESR was ordered. Was given a liter of fluid. COVID influenza was ordered. EKG for the generalized weakness did not show any acute arrhythmia, ST elevation or depression. CBC grossly unremarkable. Chemistry grossly unremarkable. She did have a ESR 48, CRP of 4 chronically elevated. TSH was 8. She does have a history of hypothyroidism. Suspect that this is likely more of inflammatory process. No vascular lesions. Neuro exam unremarkable. No neurological red flag findings. She is currently on anticoagulants. NSAIDs was held. She received fentanyl with improvement of pain. She has been taking hydrocodone at home. She has been on several rounds of taper prednisone recently finished yesterday. No evidence suggesting infectious. Lab work otherwise unremarkable. At this time recommend outpatient follow-up. We will provide a few days worth of pain medication. If any worsening symptoms return back to ED for further evaluation Impression Primary Impression: Fatigue Additional Impression: Chronic pain Disposition: HOME, SELF-CARE Condition: Stable Departure-Patient Inst. Decision time for Depature: 12:50 Referrals: JACINDA WINTERS MD (PCP) Primary Care Physician NATALIE SIERRA (Family) Primary Care Physician Patient Instructions: Joint Pain Add. Discharge Instructions: Follow-up with your primary care physician for further evaluation. Take pain medication as prescribed. Rest. All discharge instructions reviewed with patient and/or family. Voiced understanding. Scripts Oxycodone HCl/Acetaminophen (Oxycodone-Acetaminophen 5-325) 5 Mg-325 Mg Tablet 1 EACH PO Q4H PRN for PAIN-SEVERE MDD 6, #8 TAB Prov: EMERITA YANES 08/13/23 EMERITA YANES Aug 13, 2023 11:37
[2023-08-13 11:58] LABS: BASOPHILS % (AUTO) 1 % (0-10); EOSINOPHILS # (AUTO) 0.1 10^3/uL (0.0-0.3); EOSINOPHILS % (AUTO) 1 % (0-10); HEMATOCRIT 39 % (35-52); HEMOGLOBIN 12.6 g/dL (11.5-16.0); MEAN CORPUSCULAR HGB CONC 32 g/dL (32-36)
[2023-08-13 12:00] LABS: LYMPHOCYTES # (AUTO) 0.9 10^3/uL (1.0-4.0); LYMPHOCYTES % (AUTO) 15 % (12-44); MEAN CORPUSCULAR HEMOGLOBIN 31 pg (25-34); MEAN CORPUSCULAR VOLUME 97 fL (80-99); MEAN PLATELET VOLUME 11.1 fL (9.0-12.2); MONOCYTES # (AUTO) 0.4 10^3/uL (0.0-1.0); MONOCYTES % (AUTO) 7 % (0-12); NEUTROPHILS # (AUTO) 4.5 10^3/uL (1.8-7.8); NEUTROPHILS % (AUTO) 76 % (42-75); PLATELET COUNT 176 10^3/uL (130-400); WHITE BLOOD COUNT 5.9 10^3/uL (4.3-11.0)
[2023-08-13 12:06] LABS: ALBUMIN 3.7 GM/DL (3.2-4.5); CHLORIDE 105 MMOL/L (98-107); POTASSIUM 4.3 MMOL/L (3.6-5.0); SODIUM 138 MMOL/L (135-145)
[2023-08-13 12:07] LABS: CALCIUM 8.8 MG/DL (8.5-10.1)
[2023-08-13 12:08] LABS: GLUCOSE 112 MG/DL (70-105); TOTAL PROTEIN 6.4 GM/DL (6.4-8.2)
[2023-08-13 12:09] LABS: CARBON DIOXIDE 21 MMOL/L (21-32)
[2023-08-13 12:10] LABS: BILIRUBIN,TOTAL 0.9 MG/DL (0.1-1.0)
[2023-08-13 12:12] LABS: ALKALINE PHOSPHATASE 54 U/L (40-136); CREATININE SERUM 1.01 MG/DL (0.60-1.30); GFR ESTIMATED 60
[2023-08-13 12:13] LABS: BUN/CREATININE RATIO 24
[2023-08-13 12:15] LABS: ALANINE AMINOTRANSFERASE 17 U/L (0-55)
[2023-08-13 12:18] LABS: ERYTHROCYTE SEDIMENTATION RATE 48 MM/HR (0-30)
[2023-08-13 12:32] LABS: CLARITY,URINE CLEAR; COLOR,URINE YELLOW; PROTEIN,URINE NEGATIVE (NEGATIVE)
[2023-08-13 12:33] LABS: BACTERIA,URINE NEGATIVE /HPF; BILIRUBIN,URINE NEGATIVE (NEGATIVE); GLUCOSE, URINE (UA) NEGATIVE (NEGATIVE); KETONES,URINE NEGATIVE (NEGATIVE); LEUKOCYTE ESTERASE ,URINE TRACE (NEGATIVE); NITRITE,URINE NEGATIVE (NEGATIVE); WBC,URINE RARE /HPF
[2023-08-13] MEDS ORDERED: OXYC1TAB11 PO (12:51)
[2023-08-13 13:30] VITALS: BP 181/77
== END 2023-08-13 13:36 | disposition home or self-care (01) ==
LOC: EDUNIT# 11:12 → ER 11:13
DX: R53.83 Other fatigue (principal); G89.29 Other chronic pain; G47.30 Sleep apnea, unspecified; F17.290 Nicotine dependence, other tobacco product, uncomplicated; Z99.89 Dependence on other enabling machines and devices; Z20.822 Contact with and (suspected) exposure to COVID-19
CPT/HCPCS: 36415; 80053; 81000; 83735; 83880; 84443; 84484; 85025; 85652; 86141; 87636; 93005

== ENCOUNTER 2023-09-10 05:36 | Outpatient (CLI) | payer MEDICARE ==
[~2023-09-10] VITALS: Ht 170 cm; Wt 94.5 kg
[~2023-09-10 05:36] MED LIST changes: +OXYC1TAB11 PO
[2023-09-10] MEDS ORDERED: PRD10T PO (16:01)
[2023-09-10] MEDS ORDERED: APIX5TAB PO (16:01)
[2023-09-10] MEDS ORDERED: FLUT9.9S NS (16:01)
[2023-09-10] MEDS ORDERED: DOCU-143 PO (16:01)
[2023-09-10] MEDS ORDERED: POLY119P5 PO (16:01)
[2023-09-10] MEDS ORDERED: LEVO112C4 PO (16:01)
[2023-09-10] MEDS ORDERED: PREN1TAB79 PO (16:04)
[2023-09-10] MEDS ORDERED: CIDE500T PO (16:04)
[2023-09-10] MEDS ORDERED: ASCO1TAB39 PO (16:04)
[2023-09-10] MEDS ORDERED: GLUC1CAP37 PO (16:04)
[2023-09-10] MEDS ORDERED: TURM500C13 PO (16:04)
== END 2023-09-10 16:18 | disposition home or self-care (01) ==
LOC: PREOP 05:36
PROVIDERS: ATTEND Surgery
DX: Z01.818 Encounter for other preprocedural examination (principal)

== ENCOUNTER → 2023-09-15 | Outpatient (CLI) | payer MEDICARE ==
[~2023-09-15] MED LIST changes: +APIX5TAB PO; +ASCO1TAB39 PO; +CIDE500T PO; +DOCU-143 PO; +FLUT9.9S NS; +GLUC1CAP37 PO; +LEVO112C4 PO; +POLY119P5 PO; +PRD10T PO; +PREN1TAB79 PO; +TURM500C13 PO
--- NOTE | 2023-09-15 16:39 | Diagnostic Imaging Report ---
INDICATION: Routine screening. COMPARISON: 09/04/2022 and 09/03/2017. TECHNIQUE: 2D and 3D bilateral screening mammography was performed with CAD. FINDINGS: Scattered fibroglandular densities are identified bilaterally. The parenchymal pattern is stable. There are scattered benign calcifications in both breasts. No mass or malignant-appearing microcalcifications are identified. The axillae are unremarkable. IMPRESSION: No mammographic features suspicious for malignancy are identified. ACR BI-RADS Category 2: Benign findings. Result letter will be mailed to the patient. Note: At least 10% of breast cancer is not imaged by mammography. Dictated by: Dictated on workstation # [id number]
== END ==
LOC: RAD 14:43
PROVIDERS: ATTEND Physician Assistant
DX: Z12.31 Encounter for screening mammogram for malignant neoplasm of breast (principal)
CPT/HCPCS: 77063; 77067

== ENCOUNTER 2023-09-23 10:43 | Day surgery (SDC) | payer MEDICARE ==
[~2023-09-23] VITALS: Ht 170 cm; Wt 94.5 kg
--- NOTE | 2023-09-23 11:00 | Progress Note-Pre Operative ---
Pre-Operative Progress Note Date H&P Reviewed: Sep 23, 2023 Time H&P Reviewed: 10:59 History & Physical: H&P Reviewed, Patient Examed, No changes noted Pre-Operative Diagnosis: H/o colon polyps, GERD RITA HALL DO Sep 23, 2023 11:00
[2023-09-23] MEDS ORDERED: HURRICAINE EXT TUBE (BENZOCAINE) ONE (11:02)
[2023-09-23] MEDS ORDERED: LACTATED RINGERS 1,000 ML 1,000 ML IV ONE (11:02)
[2023-09-23] MEDS ORDERED: LACTATED RINGERS 1,000 ML 1,000 ML IV STA (11:04)
[2023-09-23] MEDS ORDERED: HURRICAINE EXT TUBE (BENZOCAINE) XX PRN (11:15)
[2023-09-23 12:50] VITALS: BP 163/59
[2023-09-23 14:40] VITALS: BP 137/64
--- NOTE | 2023-09-23 14:44 | Progress Note-Post Operative ---
Post-Operative Progess Note Surgeon (s)/Leaflet Distributor (s) Surgeon RITA HALL DO Leaflet Distributor: n/a Pre-Operative Diagnosis H/o colon polyps, GERD Post-Operative Diagnosis colon polyp, diverticulosis, gastritis Procedure & Operative Findings Date of Procedure 09/23/23 Procedure Performed/Findings EGD with biopsies, colonoscopy with hot biopsy polypectomy Anesthesia Type per CARPENTER/LABOR Estimated Blood Loss Estimated blood loss (mL): none Specimens/Packing Specimens Removed antrum biopsy x1, GE junction biopsy x1, ascending colon polyp x1 RITA HALL DO Sep 23, 2023 14:44
[2023-09-23 14:45] VITALS: BP 144/60
[2023-09-23] MEDS ORDERED: SUCR1TAB36 PO (14:45)
[2023-09-23] MEDS ORDERED: PANT40TA2 PO (14:45)
--- NOTE | 2023-09-23 14:45 | Anesthesia-General Post-Op ---
MAC Patient Condition Mental Status/LOC: Same as Preop Cardiovascular: Satisfactory Nausea/Vomiting: Absent Respiratory: Satisfactory Pain: Controlled Complications: Absent Post Op Complications Complications None Follow Up Care/Instructions Patient Instructions None needed. Anesthesiology Discharge Order Discharge Order Patient is doing well, no complaints, stable vital signs, no apparent adverse anesthesia problems. No complications reported per nursing. ROBERTA PAULSON CRNA Sep 23, 2023 14:45
--- NOTE | 2023-09-23 14:46 | Discharge Inst-Simple/Standard ---
Discharge Inst-Standard Patient Instructions/Follow Up Plan of Care/Instructions/FU: 2-4 weeks annabelle Activity as Tolerated: Yes Discharge Diet: Regular Diet RITA HALL DO Sep 23, 2023 14:46
[2023-09-23 14:50] VITALS: BP 123/68
[2023-09-23 15:30] VITALS: BP 123/68
--- NOTE | 2023-09-24 00:28 | OPERATIVE REPORT ---
DATE OF SERVICE: 09/23/2023 PREOPERATIVE DIAGNOSES: Gastroesophageal reflux disease, history of polyps. POSTOPERATIVE DIAGNOSES: Gastritis, colon polyp, diverticulosis. PROCEDURES: EGD with biopsies, colonoscopy with hot biopsy polypectomy x1. SURGEON: Rita Espitia DO ANESTHESIA: Per ANIMAL FEEDER. ESTIMATED BLOOD LOSS: None. COMPLICATIONS: None. INDICATIONS: The patient is a 72-year-old female with GERD and history of polyps. She understands risks and benefits of procedure and wished to proceed. Consent was signed in chart. DESCRIPTION OF PROCEDURE: The patient was taken to endoscopy suite, placed in left lateral recumbent position. Timeout was performed. Scope was inserted in the mouth, down the esophagus, stomach, into the duodenum without difficulty. No polyps, masses or ulcerations in the duodenum. Scope was slowly retracted back into stomach where it was further insufflated. Significant erythema consistent with gastritis and some ulcerations present in the antrum. Biopsies were obtained. Scope was retroflexed noting no other pathology. Scope was returned to its normal position, slowly withdrawn until distal esophagus. No polyps, masses or ulcerations. Biopsy of GE junction was obtained. Scope was slowly retracted back until completely removed, noting no other pathology. Digital rectal exam was performed. No palpable polyps, masses or ulcerations. Scope was inserted in the rectum, advanced all the way to the cecum with minimal difficulty. Prep was adequate. Scope with irrigation and suction. Scope was then slowly retracted back. No polyps, masses or ulcerations in the cecum. In the ascending colon, small polyp was present, which hot biopsy polypectomy was performed. Scope was then slowly retracted back. No polyps, masses or ulcerations in the remainder of the ascending, transverse, descending and sigmoid colon. Some diverticulosis present. Once in the rectum, scope was retroflexed noting no other pathology. Scope was returned to its normal position, slowly withdrawn until completely removed. The patient tolerated the procedure well without complications, taken to recovery room in stable condition. RECOMMENDATIONS: The patient will need repeat colonoscopy in 5 years if benefits outweigh the risks. The patient is to follow up in 2 to 4 weeks. The patient is currently on famotidine, we will stop that and change the Protonix 40 mg daily. We will add Carafate 1 gram 4 times a day and see how her symptoms are doing at her followup appointment. Job ID: [id number] DocumentID: [id number] Dictated Date: 09/23/2023 14:45:04 Volunteer Assistant Date: 09/24/2023 00:26:00 Dictated By: RITA ESPITIA DO
== END 2023-09-23 15:30 | disposition home or self-care (01) ==
LOC: ENDO 10:43
PROVIDERS: ATTEND Surgery
DX: D12.2 Benign neoplasm of ascending colon (principal); K57.30 Diverticulosis of large intestine without perforation or abscess without bleeding; K29.70 Gastritis, unspecified, without bleeding; K21.00 Gastro-esophageal reflux disease with esophagitis, without bleeding; K31.89 Other diseases of stomach and duodenum; Z87.891 Personal history of nicotine dependence; Z79.01 Long term (current) use of anticoagulants; E66.01 Morbid (severe) obesity due to excess calories; Z68.32 Body mass index [BMI] 32.0-32.9, adult
CPT/HCPCS: 88305